=== PATIENT | female | born 1935 | race Caucasian/White ===

== ENCOUNTER 2017-04-13 14:01 | Inpatient (IN) | payer MEDICARE ==
[2017-04-13 14:32] LABS: #Eosinphils 0.1 thou/uL (0.0-0.7); #Lymphocytes 0.8 thou/uL (1.20-3.40); #Monocytes 0.6 thou/uL (0.11-0.59); #Neutrophils 8.9 thou/uL (1.40-6.50); %Basophils 0.5 % (0.0-1.0); %Eosinophils 1.4 % (0.0-10.0); %Lymphocytes 7.2 % (21.0-51.0); %Monocytes 5.8 % (0.0-10.0); Hematocrit 46.9 % (36.0-47.0); Mean Platelet Volume 8.1 fL (7.4-10.4); Red Blood Cell (RBC) Count 4.59 mill/uL (4.20-5.40); White Blood Cell (WBC) Count 10.5 thou/uL (4.8-10.8)
[2017-04-13 14:55] LABS: ALT (SGPT) 15 U/L (8-55); AST (SGOT) 18 U/L (5-34); Alkaline Phosphatase 69 U/L (40-150); Anion Gap 14 mmol/L (10-20); BUN (Urea Nitrogen) 17 mg/dL (9.8-20.1); Bilirubin, Total 0.9 mg/dL (0.2-1.2); Calc. Creatinine Clearance 0 mL/min (70-130); Calcium 9.8 mg/dL (7.8-10.44); Carbon Dioxide 25 mmol/L (23-31); Chloride 107 mmol/L (98-107); Estimated GFR-MDRD 61; Globulin 2.8 g/dL (2.4-3.5); Protein, Total 6.7 g/dL (6.0-8.3)
--- NOTE | 2017-04-13 14:55 | RAD ---
CHEST ONE VIEW: HISTORY: Emphysema. Shortness of breath. COMPARISON: 04/20/2016 FINDINGS: Portable upright chest shows sternotomy wires. There is atherosclerosis of the aorta. The heart is enlarged. The pulmonary vessels and hilum are normal. The costophrenic angles are clear. Hyperin flation with chronic changes. No mass or consolidation. No pneumothorax or osseous abnormalities. IMPRESSION: 1. Atherosclerosis. 2. Cardiomegaly. 3. Hyperinflation with chronic changes. POS: [facility]
[2017-04-13 15:00] LABS: Troponin I Less than 0.010 ng/mL (< 0.028)
[2017-04-13] MEDS ORDERED: Acetaminophen 325 MG TAB PO PRN (17:12)
[2017-04-13] MEDS ORDERED: Ondansetron ODT 4 MG TAB SL PRN (17:12)
[2017-04-13] MEDS ORDERED: Ondansetron HCl/PF 4 MG/2 ML Vial IVP PRN ×2 (17:12→17:20)
[2017-04-13] MEDS ORDERED: Ondansetron ODT 4 MG TAB PO PRN (17:20)
[2017-04-13] MEDS ORDERED: cloNIDine HCl 0.1 MG TAB PO PRN (17:20)
[2017-04-13] MEDS ORDERED: Acetaminophen 500 MG TAB PO PRN (17:20)
[2017-04-13 17:22] VITALS: BMI 19.5
[2017-04-13 18:46] LABS: Troponin I 0.016 ng/mL (< 0.028)
[2017-04-13] MEDS ORDERED: Diltiazem HCl 125 MG, IV Admixture Fee 1 EACH in Sodium Chloride 0.9% 100 ML SLOW IVP SCH (19:00)
--- NOTE | 2017-04-13 19:05 | HP ---
DATE OF ADMISSION: 04/13/2017 PRIMARY CARE PHYSICIAN: Sunita Lind M.D. CHIEF COMPLAINT: Shortness of breath. HISTORY OF PRESENT ILLNESS: This is an 81-year-old female with known history of chronic o bstructive pulmonary disease/emphysema, who apparently got up in the morning complaining of increase d shortness of breath. The patient states she has had a.m. shortness of breath for which she takes home nebulized treatments. The patient states she took her regular home nebulized solution; however , persisted with symptoms and shortness of breath. The patient denies any specific chest pain, jaw or left arm discomfort. The patient does admit to a longstanding history of chronic atrial fibrilla tion and palpitations. The patient denies any specific travel history, fever, chills, recurrent pne umonia, chest trauma or purulent cough. The patient denies having the current influenza vaccination for this season, but states her Pneumovax is currently in the last 3 years. The patient denies any chronic medication changes by her primary care provider. The patient denies any specific prominent fever or lower extremity swelling or decreased appetite. The patient states she remains functional of most activities of daily living, taking care of her home as well as multiple animals. In the em ergency room, the patient underwent general evaluation including chest imaging showing no acute proc ess. Patient received DuoNebs in transport by EMS personnel as well as in the emergency room. The patient overall states her symptoms have resolved. PAST MEDICAL HISTORY: 1. Chronic obstructive pulmonary disease/emphysema. 2. Chronic hypoxic respiratory failure with nocturnal oxygen use. 3. Coronary artery disease. 4. Chronic atrial fibrillation with variable rate. 5. Hyperlipidemia. PAST SURGICAL HISTORY: 1. Status post right elbow fracture repair. 2. Status post coronary artery bypass grafting. CURRENT MEDICATIONS: 1. Albuterol sulfate 3 mL nebulized q.4-6h. p.r.n. 2. Lipitor 20 mg one tab p.o. daily. 3. Digoxin 125 mcg 1 tab p.o. daily. 4. Diltiazem extended release 120 mg p.o. daily. 5. Lasix 20 mg p.o. at bedtime. 6. Lasix 40 mg p.o. q.a.m. 7. Levothyroxine 100 mcg p.o. daily. 8. Moexipril 15 mg p.o. b.i.d. 9. Coumadin 4 mg 1 tab p.o. daily. ALLERGIES: METOPROLOL and SULFA. FAMILY HISTORY: Multiple family members with hypertension. SOCIAL HISTORY: Patient resides in [place], [place]. No current tobacco use, quitting in the . No alcohol or illicit drug use. REVIEW OF SYSTEMS: The following complete review of systems was negative, unless otherwise mentione d in the HPI or below: CONSTITUTIONAL: Weight loss or gain, ability to conduct usual activities. SKIN: Rash, itching. EYES: Double vision, pain. ENT/MOUTH: Nose bleeding, neck stiffness, pain, tenderness. CARDIOVASCULAR: Palpitations, dyspnea on exertion, orthopnea. RESPIRATORY: Shortness of breath, wheezing, cough, hemoptysis, fever or night sweats. GASTROINTESTINAL: Poor appetite, abdominal pain, heartburn, nausea, vomiting, constipation, or diar kevin. GENITOURINARY: Urgency, frequency, dysuria, nocturia. MUSCULOSKELETAL: Pain, swelling. NEUROLOGIC/PSYCHIATRIC: Anxiety, depression. ALLERGY/IMMUNOLOGIC: Skin rash, bleeding tendency. Otherwise negative except as stated per HPI. PHYSICAL EXAMINATION: VITAL SIGNS: On admission, blood pressure 159/99, pulse 95, respiratory rate 23, temperature 97.9 d egrees Fahrenheit, O2 saturation 97% on 2 liters per minute by nasal cannula. GENERAL APPEARANCE: This is an 81-year-old female, alert and oriented x3, pleasant, conve rsant, responsive, in no acute distress. HEENT: Pupils are equal, round, and reactive to light and accommodation. Extraocular muscles are i ntact. No scleral icterus, no conjunctival injection. Nares patent. OP is clear. Teeth in fair r epair. NECK: Supple, no cervical adenopathy, no thyromegaly, no carotid bruits, no JVD appreciated. Cervi magdalena spine with full active and passive range of motion. CHEST: Diminished breath sounds in the bases bilaterally. Occasional expiratory wheeze. CARDIOVASCULAR: S1, S2 with irregular rate and rhythm. ABDOMEN: Flat, soft, nontender, nondistended. Bowel sounds are positive in all 4 quadrants. There is no hepatosplenomegaly, no abdominal bruits, no rebound or guarding appreciated. EXTREMITIES: Warm and dry with fair turgor. No clubbing, cyanosis or asymmetric edema appreciated. Pulses are palpable distally at the dorsalis pedis, posterior tibial, and popliteal arteries bilat erally. Capillary refill less than 2 seconds. NEUROLOGIC: Cranial nerves II-XII are grossly intact. No focal or lateralizing signs appreciated. PERTINENT LABORATORY AND X-RAY FINDINGS: Complete metabolic profile within normal limits. Troponin I negative x1. CBC showed a white blood cell count of 10.5, hemoglobin 15, hematocrit 47, MCV 102, platelet count 179 with 85% neutrophils. Portable chest x-ray dated 04/13/2017, showed cardiomegal y with hyperinflation consistent with chronic obstructive pulmonary disease. No acute infiltrate id entified. EKG dated 04/13/2017, by my interpretation shows atrial fibrillation with rapid ventricul ar response, heart rates in the 120s. Attenuated R waves noted in the precordial leads. There are typical changes including ST-T wave changes in lead V4 through V6. ASSESSMENT AND PLAN: 1. Acute on chronic hypoxemic respiratory failure. The patient will be placed in observation statu s. We will continue general pulmonary supportive measures. We will provide oxygen to maintain O2 s aturations greater than or equal to 90%. Continue DuoNebs q.4 hours while awake. Overall, respirat ory status improved after initial management in the emergency room. 2. Chronic obstructive pulmonary disease/emphysema. No specific evidence of acute decompensation. We will continue symptomatic and supportive management as outlined in #1. We will resume home johnnie men including bronchodilator therapy. 3. Chronic atrial fibrillation with variable rate. We will continue symptomatic and supportive juan sures. Resume digoxin 125 mcg p.o. daily. Resume diltiazem 120 mg p.o. daily. 4. Hypertension. We will resume home antihypertensive regimen and monitor clinical response. 5. Hypothyroidism. Resume levothyroxine 100 mcg p.o. daily. 6. Prophylaxis. Sequential compression devices while in bed. Pepcid 20 mg p.o. b.i.d. 7. Code status is FULL. Surrogate medical decision maker is patient's son, Augustus Coleman.
[2017-04-13] MEDS: Famotidine 20 MG TAB PO SCH (20:37)
[2017-04-13] MEDS: guaiFENesin ER 600 MG TAB PO SCH (20:37)
[2017-04-13 21:29] LABS: Troponin I 0.017 ng/mL (< 0.028)
[2017-04-14] MEDS: Levothyroxine Sodium 100 MCG TAB PO SCH (05:05)
[2017-04-14 05:42] LABS: Hematocrit 43.7 % (36.0-47.0); Neutrophil 64 % (42-75); Red Blood Cell (RBC) Count 4.25 mill/uL (4.20-5.40); White Blood Cell (WBC) Count 7.7 thou/uL (4.8-10.8)
[2017-04-14 05:49] LABS: Anion Gap 10 mmol/L (10-20); BUN (Urea Nitrogen) 18 mg/dL (9.8-20.1); Calc. Creatinine Clearance 48 mL/min (70-130); Calcium 9.3 mg/dL (7.8-10.44); Carbon Dioxide 29 mmol/L (23-31); Chloride 105 mmol/L (98-107); Estimated GFR-MDRD 69
[2017-04-14] MEDS: Famotidine 20 MG TAB PO SCH ×2 (08:43→20:28)
[2017-04-14] MEDS: predniSONE 20 MG TAB PO SCH (08:43)
[2017-04-14] MEDS: Furosemide 40 MG TAB PO SCH (08:43)
[2017-04-14] MEDS: Potassium Chloride 20 MEQ TAB PO SCH (08:44)
[2017-04-14] MEDS: guaiFENesin ER 600 MG TAB PO SCH ×2 (08:44→20:28)
[2017-04-14] MEDS ORDERED: Aspirin 325 MG TAB PO SCH (09:00)
--- NOTE | 2017-04-14 17:52 | PDOC.PN ---
- Subjective Encounter Start Date: 04/14/17 Encounter Start Time: 17:40 Subjective: f/u for dyspnea and chronic a-fib with RVR. Overall feels better and -: A-fib rate controlled. Minimal cough and no fever. Cardizem gtt initially -: but now d/c'd. - Objective MAR Reviewed: Yes Vital Signs & Weight: Vital Signs (12 hours) Temp Pulse Resp BP BP Pulse Ox 04/14/17 16:29 96 04/14/17 16:00 98.3 F 79 16 160/79 H 94 L 04/14/17 13:46 70 16 96 04/14/17 12:00 97.4 F L 85 20 187/85 H 91 L 04/14/17 10:45 69 22 H 96 04/14/17 08:00 98 F 55 L 16 122/58 L 96 04/14/17 06:42 58 L 16 96 I&O: 04/13/17 04/14/17 04/15/17 06:59 06:59 06:59 Intake Total 515 Output Total 300 Balance 215 Result Diagrams: 04/14/17 04:56 04/14/17 04:56 EKG Reviewed by me: Yes (Tele - A-fib in 70's) Phys Exam - Physical Examination Constitutional: NAD HEENT: PERRLA, oral pharynx no lesions Neck: no JVD, supple diminished in bases Respiratory: no wheezing Cardiovascular: irregular Gastrointestinal: soft, non-tender, no distention, positive bowel sounds Musculoskeletal: no edema, pulses present Neurological: normal sensation, moves all 4 limbs Psychiatric: A&O x 3 Skin: normal turgor, cap refill <2 seconds Dx/Plan (1) Chronic atrial fibrillation with RVR Code(s): I48.2 - CHRONIC ATRIAL FIBRILLATION Status: Acute Comment: Rate improved and off Cardizem gtt, resume home Digoxin and Diltiazem XT (2) COPD (chronic obstructive pulmonary disease) Status: Chronic Qualifiers: COPD type: chronic bronchitis Chronic bronchitis type: simple Qualified Code(s): J41.0 - Simple chronic bronchitis Comment: mild flare but controlled with Prednisone 40mg daily, continue supportive measures (3) Chronic respiratory failure Code(s): J96.10 - CHRONIC RESPIRATORY FAILURE, UNSP W HYPOXIA OR HYPERCAPNIA Status: Chronic Qualifiers: Respiratory failure complication: hypoxia and hypercapnia Qualified Code(s) : J96.11 - Chronic respiratory failure with hypoxia; J96.12 - Chronic respiratory failure with hypercapnia Comment: Home O2 intermittently, continue on d/c (4) HTN (hypertension) Code(s): I10 - ESSENTIAL (PRIMARY) HYPERTENSION Status: Chronic Qualifiers: Hypertension type: essential hypertension Qualified Code(s): I10 - Essential (primary) hypertension Comment: Stable, resume home BP regimen - Plan respiratory therapy, out of bed/ambulate, DVT proph w/SCDs Stable overall -: Resume Digoxin and Cardizem -: Continue ASA 81mg daily -: Continue Prednisone 40mg daily, Duonebs q4h prn -: Likely home in am * .
[2017-04-15] MEDS: Levothyroxine Sodium 100 MCG TAB PO SCH (06:00)
[2017-04-15] MEDS: predniSONE 20 MG TAB PO SCH (07:59)
[2017-04-15] MEDS: Furosemide 40 MG TAB PO SCH (07:59)
[2017-04-15] MEDS: Potassium Chloride 20 MEQ TAB PO SCH (07:59)
[2017-04-15] MEDS: Famotidine 20 MG TAB PO SCH (08:00)
[2017-04-15] MEDS: guaiFENesin ER 600 MG TAB PO SCH (08:00)
[2017-04-15 11:57] VITALS: TEMP 97.6
[2017-04-15 12:20] VITALS: BP 158/97
--- NOTE | 2017-04-15 19:52 | DIS ---
DATE OF ADMISSION: 04/13/2017 DATE OF DISCHARGE: 04/15/2017 DISCHARGE DIAGNOSES: 1. Chronic atrial fibrillation with rapid ventricular response, rate controlled currently. 2. Chronic obstructive pulmonary disease, stable. 3. Acute on chronic hypoxemic respiratory failure with oxygen supplementation at 2 liters per minut e by nasal cannula. 4. Hypertension, stable. CONSULTATIONS: None. PERTINENT LABORATORY AND X-RAY FINDINGS: Complete metabolic profile within normal limits. Troponin I negative x3. CBC within normal limits. Portable chest x-ray dated 04/13/2017 showed hyperinflat ion of bilateral lung vazquez with chronic changes. A 2D transthoracic echocardiogram dated 04/14/20 17 showed ejection fraction of 45-50%. Moderate biatrial enlargement. Moderate mitral valve regurg itation. Moderate to severe tricuspid regurgitation. HOSPITAL COURSE: Patient was admitted to the telemetry unit after initially presenting with [facility] shortness of breath in the context of known chronic hypoxemic respiratory failure on chronic oxyg en supplementation in the context of chronic obstructive pulmonary disease. The patient did not pre sent with typical COPD exacerbation; however, did receive bronchodilator therapy, prednisone 40 mg d aily, and pulmonary supportive measures. The patient was also noted with chronic atrial fibrillatio n with rapid ventricular response, initially placed on low dose Cardizem infusion, transitioning to oral Cardizem and digoxin, remaining rate controlled through the remainder of the hospital course. The patient overall clinically stabilized in the first 24 hours and currently at baseline pulmonary functional status. The patient is stable and ready for discharge on 04/15/2017. DISCHARGE MEDICATIONS: 1. Prednisone 20 mg 2 tabs p.o. daily x2 days, followed by 1 tab p.o. daily x3 days, followed by powell lf a tab p.o. daily x3 days. 2. Aspirin 81 mg 1 tab p.o. daily. 3. Lipitor 20 mg p.o. at bedtime. 4. Digoxin 125 mcg p.o. daily. 5. Diltiazem XT 180 mg p.o. daily. 6. Lasix 40 mg p.o. q.a.m. and 20 mg p.o. at bedtime. 7. DuoNebs 3 mL nebulized q.i.d. p.r.n. 8. Levothyroxine 100 mcg p.o. daily. 9. Moexipril 15 mg p.o. b.i.d. 10. K-Dur 20 mEq 1 tab p.o. daily. 11. Coumadin 4 mg 1 tab p.o. daily. FOLLOWUP: The patient will follow up with her primary care provider, Dr. Sunita Lind within 7 day s. CONDITION ON DISCHARGE: Stable. ACTIVITY: Ad akosua. DIET: Heart healthy and Coumadin prudent. SPECIAL INSTRUCTIONS: Recommend repeat PT/INR on 04/17/2017. CODE STATUS: FULL. DISPOSITION: Home, 04/15/2017.
== END 2017-04-15 13:18 | disposition home or self-care (01) | DRG 189 ==
LOC: ERS 14:01 → 2SW 15:34 → OBSVTOIN 18:47 → 2NO 20:23
PROVIDERS: ADMIT Family Medicine; ATTEND Family Medicine
DX: J96.21 Acute and chronic respiratory failure with hypoxia (principal); Z99.81 Dependence on supplemental oxygen; I48.2 Chronic atrial fibrillation; J44.9 Chronic obstructive pulmonary disease, unspecified; I10 Essential (primary) hypertension; I25.10 Atherosclerotic heart disease of native coronary artery without angina pectoris; E78.5 Hyperlipidemia, unspecified; Z87.891 Personal history of nicotine dependence; E03.9 Hypothyroidism, unspecified
CPT/HCPCS: 36415; 71010; 80048; 80053; 82553; 84484; 85007; 85025; 85027; 93005; 93306; 94640; 94760; J7050; J7506; J7620

== ENCOUNTER 2017-04-30 05:01 | Inpatient (IN) | payer MEDICARE ==
[2017-04-30 05:42] LABS: #Lymphocytes 0.6 thou/uL (1.20-3.40); #Monocytes 0.3 thou/uL (0.11-0.59); #Neutrophils 7.8 thou/uL (1.40-6.50); %Basophils 0.3 % (0.0-1.0); %Eosinophils 0.4 % (0.0-10.0); %Lymphocytes 7.1 % (21.0-51.0); %Monocytes 3.9 % (0.0-10.0); Hematocrit 48.6 % (36.0-47.0); Mean Platelet Volume 8.2 fL (7.4-10.4); Red Blood Cell (RBC) Count 4.79 mill/uL (4.20-5.40); White Blood Cell (WBC) Count 8.8 thou/uL (4.8-10.8)
[2017-04-30 05:49] LABS: Prothrombin Time 36.6 SEC (12.0-14.7)
[2017-04-30 05:57] LABS: Digoxin 0.76 ng/mL (0.8-2.0)
[2017-04-30 05:58] LABS: ALT (SGPT) 48 U/L (8-55); AST (SGOT) 55 U/L (5-34); Alkaline Phosphatase 68 U/L (40-150); Anion Gap 16 mmol/L (10-20); BUN (Urea Nitrogen) 27 mg/dL (9.8-20.1); Bilirubin, Total 0.7 mg/dL (0.2-1.2); CK (CPK) 58 U/L (29-168); Calc. Creatinine Clearance 0 mL/min (70-130); Calcium 9.7 mg/dL (7.8-10.44); Carbon Dioxide 25 mmol/L (23-31); Chloride 104 mmol/L (98-107); Estimated GFR-MDRD 52; Globulin 2.6 g/dL (2.4-3.5); Magnesium 2.3 mg/dL (1.6-2.6); Protein, Total 6.2 g/dL (6.0-8.3)
[2017-04-30 06:01] LABS: Troponin I 0.078 ng/mL (< 0.028)
[2017-04-30] MEDS ORDERED: Ondansetron ODT 4 MG TAB SL PRN (07:15)
[2017-04-30] MEDS ORDERED: Ondansetron HCl/PF 4 MG/2 ML Vial IVP PRN ×2 (07:15→07:53)
--- NOTE | 2017-04-30 07:29 | HP ---
PRIMARY CARE PHYSICIAN: Dr. Sunita Lind. REASON FOR ADMISSION: Acute on chronic hypoxic respiratory failure, acute on chronic congestive hea rt failure, atrial fibrillation with rapid ventricular response. HISTORY OF PRESENT ILLNESS: An 81-year-old female who has history of atrial fibrillation, on chroni c anticoagulation therapy, as well as chronic respiratory failure, on home oxygen, who presented to the emergency room with acute onset of shortness of breath. Patient reports that she woke up from s lee around 3 with shortness of breath. She was feeling palpitations and dizziness. She was not ab le to breathe at all and that is why she called 911 and Paramedics brought her to the emergency room . When Paramedics saw her, at that time she was saturating 86%. The patient was given 2 times nebu lizer therapy on the route and patient was also having fibrillation with RVR. Patient denies any sy ncope. She denies any chest pain. She denies any orthopnea, PND, or leg swelling. Patient does powell ve a history of COPD. She denies any fever or chills. She denies any cough, hemoptysis, or calf te nderness. She denies any hematochezia, melena, nausea, vomiting, or diarrhea. She denies any diaph oresis. REVIEW OF SYSTEMS: The following complete review of systems was negative, unless otherwise mentione d in the HPI or below: Constitutional: Weight loss or gain, ability to conduct usual activities. Skin: Rash, itching. Eyes: Double vision, pain. ENT/Mouth: Nose bleeding, neck stiffness, pain, tenderness. Cardiovascular: Palpitations, dyspnea on exertion, orthopnea. Respiratory: Shortness of breath, wheezing, cough, hemoptysis, fever or night sweats. Gastrointestinal: Poor appetite, abdominal pain, heartburn, nausea, vomiting, constipation, or diar kevin. Genitourinary: Urgency, frequency, dysuria, nocturia. Musculoskeletal: Pain, swelling. Neurologic/Psychiatric: Anxiety, depression. Allergy/Immunologic: Skin rash, bleeding tendency. Please see my HPI for pertinent positives and negatives. All other review of system are reviewed an d negative except as mentioned in the HPI. PAST MEDICAL HISTORY: Chronic respiratory failure with hypoxia, requiring oxygen therapy; COPD; cor onary artery disease; chronic atrial fibrillation; hypertension; dyslipidemia; pulmonary hypertensio n; severe tricuspid regurgitation; systolic and diastolic dysfunction. PAST SURGICAL HISTORY: Right elbow fracture repair, CABG. PAST PSYCHIATRIC HISTORY: Reviewed and negative. CURRENT HOME MEDICATIONS: Aspirin 81 mg p.o. daily, Lipitor 20 mg p.o. at bedtime, digoxin 125 mcg p.o. daily, Cardizem-CD 180 mg p.o. daily, Lasix 20 mg at bedtime and 40 mg in morning, DuoNeb every 6 hourly p.r.n., Synthroid 100 mcg p.o. daily, moexipril 15 mg p.o. b.i.d., potassium chloride 20 m Eq p.o. daily, warfarin 4 mg p.o. daily. ALLERGIES: The patient is not tolerating METOPROLOL and SULFA DRUGS. FAMILY HISTORY: Hypertension runs among several family members. No strong family history of premat ure coronary artery disease, stroke, or cancer. SOCIAL HISTORY: Patient lives in [place], [place]. No history of tobacco, alcohol, or illicit drug abuse. She quit smoking in 1979 after smoking 32 years. The patient lives with her son. EMERGENCY ROOM COURSE: Patient has given Cardizem drip after Cardizem bolus. PHYSICAL EXAMINATION: VITAL SIGNS: On arrival, blood pressure 120/99, pulse 134, irregular, respiratory rate 22, saturati on 97% on 2 liter oxygen, weight 55.3 kilograms. GENERAL: Patient is currently alert, awake, in no obvious acute distress. HEENT: Head: Normocephalic, atraumatic. Eyes: Pupils are round, reactive to light. Extraocular muscle intact. ENT: Oropharynx within normal limits. Moist mucous membranes. No oral lesions. N o pharyngeal erythema, no exudate. NECK: Supple. Range of motion is normal. No meningeal signs of irritation. LUNGS: Few air entry reduced both sides. Few basilar rales noted. CARDIAC: S1 and S2, irregularly irregular. Systolic murmur present in parasternal area. No gallop , no rub. ABDOMEN: Soft, bowel sounds present, nontender, nondistended. No organomegaly, no mass, no suprapu bic tenderness. BACK EXAMINATION: Unremarkable, no CVA tenderness. EXTREMITIES: Upper extremities, passive movement of all joints are normal. Lower extremities, no e cameron. Good peripheral pulsation. SKIN: No skin rash. HEMATOLOGICAL SYSTEM: No lymphadenopathy. PSYCHIATRIC: Normal affect. SIGNIFICANT LABORATORY DATA AND IMAGIN. EKG showing atrial fibrillation with rapid ventricular response, nonspecific ST-T changes. Ches t x-ray showing cardiomegaly, emphysematous changes. 2. CBC: WBC 8.8, hemoglobin 15.8, MCV 101.0, and platelets 191. INR 3.5. BMP: Sodium 140, potas sium 4.5, chloride 104, carbon dioxide 25, BUN 27, creatinine 1.02, glucose 236, calcium 9.7. 3. LFT: AST 55, ALT 48, alkaline phosphatase 68, albumin 3.6. CK 58, CK-MB 5.0, troponin I of 0.0 78. Digoxin level 0.76. ASSESSMENT AND PLAN/IMPRESSION: 1. Atrial fibrillation with rapid ventricular response. This patient has atrial fibrillation and p aroxysmal rapid ventricular response. Currently, the patient requires Cardizem drip. We will caterina nue Cardizem drip and monitor on telemetry floor. Based on her rate of control, we will change to o ral medication. I will also continue digoxin 0.125 mg p.o. daily. If her heart rate is not get und er control with Cardizem drip, then we will consider Cardiology evaluation. 2. Acute on chronic respiratory failure with hypoxia. This patient chronically requires oxygen the rapy at home. When she presented to the ER, she was hypoxic. At this point, we will continue with baseline oxygen therapy and titrate to her baseline oxygen requirement. 3. Acute on chronic systolic and diastolic congestive heart failure exacerbation, likely due to und erlying atrial fibrillation with rapid ventricular response. Patient had echocardiography recently, which showed ejection fraction 40% to 45% and she has pulmonary hypertension as well as severe tric uspid regurgitation. Patient will require Lasix 20 mg IV b.i.d. and we will monitor input and outpu t chart, daily labs, and weight. We will replace electrolytes as needed basis. 4. Chronic obstructive pulmonary disease exacerbation. We will continue with the DuoNeb every 6 ho urly, Solu-Medrol 20 mg IV every 8 hourly. 5. Elevated troponin, likely due to demand ischemia. We will do serial cardiac enzymes to rule out acute coronary syndrome. 6. Hyperglycemia, may be related with steroid, but we will check a hemoglobin A1c to rule out any d iabetes and we will also continue with insulin as per sliding scale per protocol. 7. Dyslipidemia. We will continue Lipitor 20 mg p.o. at bedtime. 8. Pulmonary hypertension with severe tricuspid regurgitation likely due to chronic hypoxia and chr onic obstructive pulmonary disease. 9. Hypothyroidism. We will continue Synthroid 100 mcg p.o. daily. 10. Hypertension. We will continue moexipril 15 mg p.o. b.i.d. 11. Chronic anticoagulation therapy with warfarin. Currently, INR is 3.5, so we will hold on warfa rin therapy today. Pharmacy will manage warfarin therapy while in the hospital. 12. Deep venous thrombosis prophylaxis. The patient is already on warfarin therapy. 13. Gastrointestinal prophylaxis. Protonix 40 mg p.o. daily. CODE STATUS: Patient is FULL CODE. Patient's son is a surrogate decision maker. Disposition and plan based on clinical course, we are expecting patient's stay in hospital more than 2 midnights. Plan of care was discussed with the patient in detail.
[2017-04-30] MEDS ORDERED: Senokot 8.6 MG TAB PO PRN (07:53)
[2017-04-30] MEDS ORDERED: Loratadine 10 MG TAB PO PRN (07:53)
[2017-04-30] MEDS ORDERED: HYDROcodone/Acetaminophen 5/325 mg Tablet PO PRN (07:53)
[2017-04-30] MEDS ORDERED: Mag-Al 1200 mg/1200 mg/30 ML UDCUP PO PRN (07:53)
[2017-04-30] MEDS ORDERED: HumaLOG 300 UNITS/3 ML VIAL SC PRN ×2 (07:53)
[2017-04-30] MEDS ORDERED: Artificial Tears 18 DROP/0.9 ML EA EYE PRN (07:53)
[2017-04-30] MEDS ORDERED: Sodium Chloride 0.65% Nasal 44 ML BOT EA NARE PRN (07:53)
[2017-04-30] MEDS ORDERED: Dextrose 50% Abboject 50 ML SYRINGE SLOW IVP PRN (07:53)
[2017-04-30] MEDS ORDERED: Benzonatate 100 MG CAP PO PRN (07:53)
[2017-04-30] MEDS ORDERED: Ondansetron ODT 4 MG TAB PO PRN (07:53)
[2017-04-30] MEDS ORDERED: Furosemide 20 MG/2 ML VIAL SLOW IVP SCH ×2 (07:53→08:15)
[2017-04-30] MEDS ORDERED: Diabetic Tussin 200 MG/10 ML UDCUP PO PRN (07:53)
[2017-04-30] MEDS ORDERED: Levothyroxine Sodium 100 MCG TAB PO SCH ×2 (07:53→08:15)
[2017-04-30] MEDS ORDERED: Chloraseptic Spray 180 ml Bottle PO PRN (07:53)
[2017-04-30] MEDS ORDERED: Loperamide HCl 2 MG CAP PO PRN (07:53)
[2017-04-30] MEDS ORDERED: Acetaminophen 325 MG TAB PO PRN (07:53)
[2017-04-30] MEDS ORDERED: Dextrose 5% in Water 1,000 ML IV PRN (07:53)
[2017-04-30] MEDS ORDERED: Eucerin (Mineral Oil/Petrolatum,White) 30 gm Jar TOP PRN (07:53)
[2017-04-30] MEDS ORDERED: Milk Of Magnesia 30 ML UDCUP PO PRN (07:53)
[2017-04-30 08:30] VITALS: BMI 20.9
--- NOTE | 2017-04-30 08:31 | RAD ---
AP VIEW OF THE CHEST: INDICATION: Dyspnea. IMPRESSION: Stable prominent cardiomegaly and chronic lung changes. No acute abnormality noted. COMMENTS: The exam is compared to prior dated 04/13/17. No airspace consolidation, pleural effusion, or pneumo thorax is evident. Chronic osseous changes are stable. Midline sternotomy changes are similar. POS: [facility]
[2017-04-30] MEDS: Digoxin 0.125 MG TAB PO SCH (08:58)
[2017-04-30] MEDS: Cyanocobalamin (Vitamin B-12) 1,000 MCG TAB PO SCH (08:58)
[2017-04-30] MEDS: Folic Acid 1 MG TAB PO SCH (08:58)
[2017-04-30 09:02] LABS: Troponin I 0.171 ng/mL (< 0.028)
--- NOTE | 2017-04-30 10:21 | PDOC.PN ---
- Subjective Encounter Start Date: 04/30/17 Encounter Start Time: 10:20 Patient seen at bedside. States her breathing overall has improved but intermittently becomes SOB. No other complaints. - Objective Resuscitation Status: Resuscitation Status FULL:Full Resuscitation MAR Reviewed: Yes Vital Signs & Weight: Vital Signs (12 hours) Temp Pulse Resp BP Pulse Ox 04/30/17 08:58 95 04/30/17 08:29 97.8 F 95 22 H 128/84 96 Weight Weight 133 lb 12.8 oz Result Diagrams: 04/30/17 05:27 04/30/17 05:27 Phys Exam - Physical Examination Constitutional: NAD HEENT: moist MMs Neck: no JVD mild rales b/l Cardiovascular: irregular Gastrointestinal: soft Musculoskeletal: pulses present Neurological: moves all 4 limbs Psychiatric: normal affect, A&O x 3 Dx/Plan (1) Afib Code(s): I48.91 - UNSPECIFIED ATRIAL FIBRILLATION Status: Chronic Qualifiers: Atrial fibrillation type: chronic Qualified Code(s): I48.2 - Chronic atrial fibrillation (2) Acute systolic (congestive) heart failure Code(s): I50.21 - ACUTE SYSTOLIC (CONGESTIVE) HEART FAILURE Status: Suspected (3) Chronic respiratory failure Code(s): J96.10 - CHRONIC RESPIRATORY FAILURE, UNSP W HYPOXIA OR HYPERCAPNIA Status: Chronic Qualifiers: Respiratory failure complication: hypoxia and hypercapnia Qualified Code(s) : J96.11 - Chronic respiratory failure with hypoxia; J96.12 - Chronic respiratory failure with hypercapnia Comment: Home O2 intermittently, continue on d/c (4) HLD (hyperlipidemia) Code(s): E78.5 - HYPERLIPIDEMIA, UNSPECIFIED Status: Chronic (5) HTN (hypertension) Code(s): I10 - ESSENTIAL (PRIMARY) HYPERTENSION Status: Chronic Qualifiers: Hypertension type: essential hypertension Qualified Code(s): I10 - Essential (primary) hypertension - Plan cont current plan of care, PT/OT, respiratory therapy * Continue with IV diuresis. * Wean Cardizem drip. Start on Cartia 180mg (Home dose) * IV steroids/Duonebs * Supplemental 02 * Daily Labs * Check INR in AM
[2017-04-30 12:47] LABS: Troponin I 0.219 ng/mL (< 0.028)
[2017-04-30] MEDS: Furosemide 20 MG/2 ML VIAL SLOW IVP SCH (14:46)
[2017-04-30 16:40] LABS: Bilirubin Negative (Negative); Blood, Urine Negative (Negative); Glucose, Urine (Dipstick) 100 mg/dL (Negative); Ketone, Urine Negative (Negative); Nitrite Negative (Negative); Protein, Urine (Dipstick) Negative (Neg-Trace); Urobilinogen 0.2 mg/dL (0.2-1.0)
[2017-04-30 16:42] LABS: Bacteria/HPF None Seen HPF (None Seen); Hyaline Casts/LPF 0-3 HYALINE CAST LPF (0-3 Hyaline); Squamous Epithelial 0-3 HPF (0-3); WBC/HPF 0-3 HPF (0-3)
[2017-04-30 17:11] LABS: RBC/HPF 0-3 HPF (0-3)
[2017-04-30] MEDS ORDERED: FLU VACC TS2017-18 (>65YR) 0.5 ML SYRINGE IM ONE (21:00)
[2017-04-30] MEDS ORDERED: Atorvastatin Calcium 10 MG TAB PO SCH (21:00)
[2017-04-30] MEDS: Atorvastatin Calcium 20 MG TAB PO SCH (21:58)
[2017-05-01] MEDS: Furosemide 20 MG/2 ML VIAL SLOW IVP SCH ×2 (05:31→15:00)
[2017-05-01] MEDS: Levothyroxine Sodium 100 MCG TAB PO SCH (05:31)
[2017-05-01 05:59] LABS: Prothrombin Time 38.1 SEC (12.0-14.7)
[2017-05-01 06:11] LABS: Hemoglobin A1c 5.5 % (4.0-6.0)
[2017-05-01 06:19] LABS: Band 6 % (5-11); Hematocrit 44.5 % (36.0-47.0); Mean Platelet Volume 8.5 fL (7.4-10.4); Neutrophil 90 % (42-75); Red Blood Cell (RBC) Count 4.42 mill/uL (4.20-5.40); White Blood Cell (WBC) Count 20.3 thou/uL (4.8-10.8)
[2017-05-01 06:26] LABS: ALT (SGPT) 34 U/L (8-55); AST (SGOT) 21 U/L (5-34); Alkaline Phosphatase 60 U/L (40-150); Anion Gap 11 mmol/L (10-20); BUN (Urea Nitrogen) 30 mg/dL (9.8-20.1); Bilirubin, Total 0.4 mg/dL (0.2-1.2); Calc. Creatinine Clearance 52 mL/min (70-130); Calcium 9.9 mg/dL (7.8-10.44); Carbon Dioxide 27 mmol/L (23-31); Chloride 104 mmol/L (98-107); Estimated GFR-MDRD 71; Globulin 2.4 g/dL (2.4-3.5); Protein, Total 5.7 g/dL (6.0-8.3)
[2017-05-01] MEDS ORDERED: MOEXIPRIL HCL 15 MG PO SCH (09:00)
[2017-05-01] MEDS: Folic Acid 1 MG TAB PO SCH (09:50)
[2017-05-01] MEDS: Potassium Chloride 20 MEQ TAB PO SCH (09:50)
[2017-05-01] MEDS: Cyanocobalamin (Vitamin B-12) 1,000 MCG TAB PO SCH (09:50)
[2017-05-01] MEDS: Digoxin 0.125 MG TAB PO SCH (09:50)
--- NOTE | 2017-05-01 10:01 | PDOC.PN ---
- Subjective Encounter Start Date: 05/01/17 Encounter Start Time: 08:20 -: old records requested/rev Patient seen and examined. No new complaints. No overnight events - Objective Resuscitation Status: Resuscitation Status FULL:Full Resuscitation MAR Reviewed: Yes Vital Signs & Weight: Vital Signs (12 hours) Temp Pulse Resp BP Pulse Ox 05/01/17 09:50 76 05/01/17 07:24 97.7 F 76 18 96 05/01/17 07:22 97.7 F 76 18 116/65 96 05/01/17 06:46 84 18 96 05/01/17 04:00 98.5 F 86 18 125/70 95 05/01/17 00:19 92 20 94 L Weight Weight 133 lb 12.8 oz I&O: 04/30/17 05/01/17 05/02/17 06:59 06:59 06:59 Intake Total 640 Output Total 450 Balance 190 Result Diagrams: 05/01/17 04:30 05/01/17 04:30 Additional Labs: Accuchecks 05/01/17 04/30/17 04/30/17 06:30 22:50 16:35 POC Glucose 143 H 206 H 285 H 04/30/17 11:51 POC Glucose 256 H Radiology Reviewed by me: Yes EKG Reviewed by me: Yes Phys Exam - Physical Examination Constitutional: NAD HEENT: PERRLA, moist MMs, sclera anicteric Neck: no JVD, supple Respiratory: no wheezing, no rales, no rhonchi Cardiovascular: irregular SM+ Gastrointestinal: soft, non-tender, no distention, positive bowel sounds Musculoskeletal: no edema, pulses present Neurological: non-focal, normal sensation, moves all 4 limbs Psychiatric: normal affect, A&O x 3 Skin: no rash, normal turgor Dx/Plan (1) Acute on chronic combined systolic and diastolic congestive heart failure Code(s): I50.43 - ACUTE ON CHRONIC COMBINED SYSTOLIC AND DIASTOLIC HRT FAIL Status: Acute (2) Acute on chronic respiratory failure with hypoxia Code(s): J96.21 - ACUTE AND CHRONIC RESPIRATORY FAILURE WITH HYPOXIA Status: Acute (3) Atrial fibrillation with RVR Code(s): I48.91 - UNSPECIFIED ATRIAL FIBRILLATION Status: Acute (4) CAD (coronary artery disease) Code(s): I25.10 - ATHSCL HEART DISEASE OF [place] CORONARY ARTERY W/O ANG PCTRS Status: Chronic Qualifiers: Coronary Disease-Associated Artery/Lesion type: [place] artery [place] vs. transplanted heart: [place] heart Associated angina: without angina Qualified Code(s): I25.10 - Atherosclerotic heart disease of [place] coronary artery without angina pectoris (5) COPD (chronic obstructive pulmonary disease) Status: Chronic Qualifiers: COPD type: chronic bronchitis Chronic bronchitis type: simple Qualified Code(s): J41.0 - Simple chronic bronchitis Comment: mild flare but controlled with Prednisone 40mg daily, continue supportive measures (6) Chronic anticoagulation Code(s): Z79.01 - [facility] (CURRENT) USE OF ANTICOAGULANTS Status: Chronic (7) HLD (hyperlipidemia) Code(s): E78.5 - HYPERLIPIDEMIA, UNSPECIFIED Status: Chronic (8) HTN (hypertension) Code(s): I10 - ESSENTIAL (PRIMARY) HYPERTENSION Status: Chronic Qualifiers: Hypertension type: essential hypertension Qualified Code(s): I10 - Essential (primary) hypertension (9) Hypothyroidism Code(s): E03.9 - HYPOTHYROIDISM, UNSPECIFIED Status: Chronic (10) Pulmonary hypertension Code(s): I27.20 - PULMONARY HYPERTENSION, UNSPECIFIED Status: Chronic - Plan cont current plan of care, PT/OT * pt is improving and now almost euvolemic, will change to po lasix tomorrow * now afib with RVR is controlled, on po cardizem CD * will start PT * medication reviewed as below * symptomatic treatment. * DC hyperglycemia protocol, pt does not have diabetes, because of steroid she had high blood sugar * wbc is high due to steroid * will repeat labs tomorrow Review of Systems - Review of Systems ENT: negative: Ear Pain, Ear Discharge, Nose Pain, Nose Discharge, Nose Congestion, Mouth Pain, Mouth Swelling, Throat Pain, Throat Swelling, Other Respiratory: negative: Cough, Dry, Shortness of Breath, Hemoptysis, SOB with Excertion, Pleuritic Pain, Sputum, Wheezing Cardiovascular: negative: Chest Pain, Palpitations, Orthopnea, Paroxysmal Noc. Dyspnea, Edema, Light Headedness, Other Gastrointestinal: negative: Nausea, Vomiting, Abdominal Pain, Diarrhea, Constipation, Melena, Hematochezia, Other Genitourinary: negative: Dysuria, Frequency, Incontinence, Hematuria, Retention , Other Musculoskeletal: negative: Neck Pain, Shoulder Pain, Arm Pain, Back Pain, Hand Pain, Leg Pain, Foot Pain, Other - Medications/Allergies Allergies/Adverse Reactions: Allergies Allergy/AdvReac Type Severity Reaction Status Date / Time metoprolol tartrate Allergy Verified 04/19/16 20:07 [From Lopressor] Sulfa (Sulfonamide Allergy Verified 04/19/16 20:07 Antibiotics) Medications: Current Medications Acetaminophen (Tylenol) 650 mg PO Q4H PRN PRN Reason: Headache/Fever or Pain Hydrocodone Bitart/Acetaminophen ([place] 5/325) 1 tab PO Q4H PRN PRN Reason: Moderate Pain (4-6) Al Hydroxide/Mg Hydroxide (Maalox) 30 ml PO Q6H PRN PRN Reason: Heartburn or Indigestion Albuterol/Ipratropium (Duoneb) 3 ml NEB O1AM-HR [facility] Last Admin: 05/01/17 06:46 Dose: 3 ml Artificial Tears (Tears Naturale) 0 drop EA EYE PRN PRN PRN Reason: Dry Eyes Aspirin (Aspirin Chewable) 81 mg PO DAILY [facility] Last Admin: 05/01/17 09:49 Dose: 81 mg Atorvastatin Calcium (Lipitor) 20 mg PO HS [facility] Last Admin: 04/30/17 21:58 Dose: 20 mg Benzonatate (Tessalon) 100 mg PO Q4H PRN PRN Reason: Cough Cyanocobalamin (Vitamin B-12) 1,000 mcg PO DAILY [facility] Last Admin: 05/01/17 09:50 Dose: 1,000 mcg Dextrose/Water (Dextrose 50%) 25 gm SLOW IVP PRN PRN PRN Reason: Hypoglycemia Digoxin (Lanoxin) 0.125 mg PO DAILY [facility] Last Admin: 05/01/17 09:50 Dose: 0.125 mg Diltiazem HCl (Cardizem Cd) 180 mg PO DAILY [facility] Last Admin: 05/01/17 09:50 Dose: 180 mg Folic Acid (Folvite) 1 mg PO DAILY [facility] Last Admin: 05/01/17 09:50 Dose: 1 mg Furosemide (Lasix) 20 mg SLOW IVP 0600,1400 [facility] Last Admin: 05/01/17 05:31 Dose: 20 mg Guaifenesin (Robitussin Sf) 200 mg PO Q4H PRN PRN Reason: Cough Hydralazine HCl (Apresoline) 10 mg SLOW IVP Q4H PRN PRN Reason: Systolic BP > 180 Dextrose/Water (D5w) 1,000 mls @ 0 mls/hr IV .Q0M PRN; As Directed PRN Reason: Hypoglycemia Levothyroxine Sodium (Synthroid) 100 mcg PO 0600 [facility] Last Admin: 05/01/17 05:31 Dose: 100 mcg Loperamide HCl (Imodium) 2 mg PO PRN PRN PRN Reason: Diarrhea/Loose Stools Loratadine (Claritin) 10 mg PO DAILYPRN PRN PRN Reason: Sinus Symptoms Magnesium Hydroxide (Milk Of Magnesium) 30 ml PO DAILYPRN PRN PRN Reason: Constipation Mineral Oil/White Petrolatum (Eucerin Cream) 0 gm TOP BIDPRN PRN PRN Reason: Dry Skin Miscellaneous Medication (Pharmacy To Dose) 0 each PO ASDIR [facility] Ondansetron HCl (Zofran Odt) 4 mg PO Q6H PRN PRN Reason: Nausea/Vomiting Ondansetron HCl (Zofran) 4 mg IVP Q6H PRN PRN Reason: Nausea/Vomiting Pantoprazole Sodium (Protonix) 40 mg PO DAILY [facility] Last Admin: 05/01/17 09:49 Dose: 40 mg Phenol (Chloraseptic [place] 180 Ml Bot) 0 ml PO PRN PRN PRN Reason: Sore Throat Potassium Chloride (K-Dur) 20 meq PO DAILY [facility] Last Admin: 05/01/17 09:50 Dose: 20 meq Senna (Senokot) 2 tab PO HSPRN PRN PRN Reason: Constipation Sodium Chloride (Flush - Normal Saline) 10 ml IVF Q12HR [facility] Last Admin: 05/01/17 09:50 Dose: 10 ml Sodium Chloride (Flush - Normal Saline) 10 ml IVF PRN PRN PRN Reason: Saline Flush Sodium Chloride ([place] Nasal [place] 0.65%) 0 ml EA NARE QIDPRN PRN PRN Reason: Nasal Congestion
[2017-05-01] MEDS ORDERED: Warfarin Sodium 3 MG TAB PO SCH (17:00)
[2017-05-01] MEDS: Atorvastatin Calcium 20 MG TAB PO SCH (21:39)
[2017-05-02] MEDS: Levothyroxine Sodium 100 MCG TAB PO SCH (05:28)
[2017-05-02] MEDS: Furosemide 20 MG/2 ML VIAL SLOW IVP SCH (05:29)
[2017-05-02 05:50] LABS: #Lymphocytes 1.5 thou/uL (1.20-3.40); #Neutrophils 14.6 thou/uL (1.40-6.50); %Basophils 0.1 % (0.0-1.0); %Eosinophils 0.1 % (0.0-10.0); %Lymphocytes 8.6 % (21.0-51.0); %Monocytes 5.6 % (0.0-10.0); Hematocrit 44.4 % (36.0-47.0); Mean Platelet Volume 8.3 fL (7.4-10.4); Red Blood Cell (RBC) Count 4.36 mill/uL (4.20-5.40)
[2017-05-02 06:02] LABS: Anion Gap 9 mmol/L (10-20); BUN (Urea Nitrogen) 35 mg/dL (9.8-20.1); Calc. Creatinine Clearance 49 mL/min (70-130); Calcium 9.5 mg/dL (7.8-10.44); Carbon Dioxide 32 mmol/L (23-31); Chloride 103 mmol/L (98-107); Estimated GFR-MDRD 66
[2017-05-02] MEDS: Cyanocobalamin (Vitamin B-12) 1,000 MCG TAB PO SCH (08:37)
[2017-05-02] MEDS: Potassium Chloride 20 MEQ TAB PO SCH (08:38)
[2017-05-02] MEDS: Digoxin 0.125 MG TAB PO SCH (08:38)
[2017-05-02] MEDS: Folic Acid 1 MG TAB PO SCH (08:38)
[2017-05-02] MEDS ORDERED: Furosemide 20 MG TAB PO SCH ×2 (09:00→21:00)
[2017-05-02 10:06] LABS: Prothrombin Time 25.6 SEC (12.0-14.7)
[2017-05-02 10:17] VITALS: TEMP 97.8
--- NOTE | 2017-05-02 10:51 | DIS ---
DATE OF ADMISSION: 04/30/2017 DATE OF DISCHARGE: 05/02/2017 PRIMARY CARE PHYSICIAN: Sunita Lind M.D. DISCHARGE DISPOSITION: Home. PRIMARY DISCHARGE DIAGNOSES: 1. Acute on chronic combined systolic and diastolic congestive heart failure. 2. Acute on chronic respiratory failure with hypoxia. 3. Atrial fibrillation with rapid ventricular response. SECONDARY DISCHARGE DIAGNOSES: Chronic pulmonary hypertension, chronic respiratory failure requiring home oxygen, chronic systolic and diastolic heart failure, hypothyroidism, hypertension, dyslipidemia, chronic obstructive pulmonary disease, chronic anticoagulation with warfarin, coronary artery disease. PRIMARY PROCEDURE/OPERATION: None. RADIOLOGICAL INVESTIGATION: Chest x-ray on admission showed pulmonary vascular congestion. SIGNIFICANT LABORATORY DATA: WBC 17.0, which is related with steroid, hemoglobin 14.5, MCV 102, platelet 188. INR 3.7, sodium 139, potassium 4.8, BUN 35, creatinine 0.83, calcium 9.5. Hemoglobin A1c 5.5. LFT normal. Urinalysis normal. Digoxin level 0.76. DISCHARGE MEDICATIONS: Patient is advised to hold warfarin therapy today and tomorrow and then resume her home dose. Continue following medications: Aspirin 81 mg p.o. daily, Lipitor 20 mg p.o. at bedtime, digoxin 125 mcg p.o. daily, Lasix 20 mg p.o. at bedtime and 40 mg in the morning, DuoNeb q.6 hourly p.r.n., Synthroid 100 mcg p.o. daily, moexipril 15 mg p.o. b.i.d., potassium chloride 20 mEq p.o. daily. New medications; vitamin B12 1000 mcg p.o. daily, folic acid 1 mg p.o. daily, and Cardizem CD 180 mg p.o. daily. CONTRAINDICATIONS: None. CODE STATUS: FULL CODE. 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 ALLERGIES: METOPROLOL and SULFA DRUGS. DISCHARGE PLAN: Post hospital, the patient will follow up with primary care physician in 1 week. HOSPITAL COURSE: An 81-year-old female who has above-mentioned medical problem who was admitted by me on 04/30/2017. Patient was having acute onset of shortness of breath and she woke up with shortness of breath during nighttime and that is why she required to come to the ER. She was found with acute on chronic respiratory failure with hypoxia. She also had elevated BNP and she was also having acute on chronic systolic and diastolic congestive heart failure. This patient also had AFIB with RVR. Altogether, we treated her with a Cardizem drip, Lasix IV and we also gave her Solu-Medrol 20 mg q.8 hourly for possible COPD flare-up. She had some hyperglycemia that was related with steroid. We checked hemoglobin A1c and her hemoglobin A1c is 5.5 and that is why we ruled out diabetes. We advised to follow up with primary care physician to check on fasting blood sugar after discharge. She had leukocytosis that was related with steroid. She did not have any fever while in hospital. Regarding macrocytosis, we started on folic acid and vitamin B12 therapy. While in hospital, we did not have to give her warfarin because her INR was supratherapeutic and we advised on discharge to hold that medication for at least today and tomorrow and then resume her home dose. We discontinued Cardizem drip and her heart rate was under control and we started on Cardizem CD 180 mg p.o. daily. We watched her in hospital after that for at least 24-48 hours and she did not have any further RVR. She became euvolemic. At that time, we changed her Lasix to p.o. Lasix as per home dosage. At this point, patient is medically stable for discharge today. The patient is seen and examined at bedside today. PHYSICAL EXAMINATION: VITAL SIGNS: Currently, temperature 98.5, pulse 81, respiratory rate 18, saturation 100% on 2 liter, blood pressure 131/68, weight 129 pounds. GENERAL: The patient is currently alert, awake, in no acute distress. HEAD: Normocephalic, atraumatic. EYES: Pupils round, reactive to light. Extraocular muscle intact. ENT: Oropharynx within normal limits. Moist mucous membranes. No oral lesions. No pharyngeal erythema, no exudate. NECK: Supple. LUNGS: Clear to auscultation without any rhonchi or rales. CARDIAC: S1, S2 irregular without any significant murmur. ABDOMEN: Soft and benign. EXTREMITIES: No edema. NEUROLOGIC: Nonfocal examination. Overall, the patient is medically stable for discharge today. Total time spent on discharge day more than 30 minutes MTDD
[2017-05-02 11:49] VITALS: BP 151/82
== END 2017-05-02 12:37 | disposition home health service (06) | DRG 291 ==
LOC: ERS 05:01 → 2NO 05:20
PROVIDERS: ADMIT Internal Medicine; ATTEND Internal Medicine
DX: I11.0 Hypertensive heart disease with heart failure (principal); J96.21 Acute and chronic respiratory failure with hypoxia; I24.8 Other forms of acute ischemic heart disease; J96.22 Acute and chronic respiratory failure with hypercapnia; Z99.81 Dependence on supplemental oxygen; I50.43 Acute on chronic combined systolic (congestive) and diastolic (congestive) heart failure; I48.2 Chronic atrial fibrillation; Z79.01 Long term (current) use of anticoagulants; E78.5 Hyperlipidemia, unspecified; E03.9 Hypothyroidism, unspecified; I27.20 Pulmonary hypertension, unspecified; I25.10 Atherosclerotic heart disease of native coronary artery without angina pectoris; J44.9 Chronic obstructive pulmonary disease, unspecified; Z87.891 Personal history of nicotine dependence; R73.9 Hyperglycemia, unspecified; T38.0X5A Adverse effect of glucocorticoids and synthetic analogues, initial encounter
CPT/HCPCS: 36415; 36416; 71010; 80048; 80053; 80162; 81001; 82553; 83036; 83735; 83880; 84484; 85025; 85610; 85730; 93005; 93798; 94640; 96365; 96376; A4216; J1940; J2920; J7620

== ENCOUNTER 2017-05-03 08:57 | Emergency (ER) | payer MEDICARE ==
[2017-05-03] MEDS ORDERED: predniSONE 20 MG TAB ONE (09:55)
== END 2017-05-03 10:20 | disposition home or self-care (01) ==
LOC: ERS 08:57
DX: J44.1 Chronic obstructive pulmonary disease with (acute) exacerbation (principal); I48.91 Unspecified atrial fibrillation; I25.10 Atherosclerotic heart disease of native coronary artery without angina pectoris; E78.5 Hyperlipidemia, unspecified; I10 Essential (primary) hypertension; Z79.82 Long term (current) use of aspirin; Z79.01 Long term (current) use of anticoagulants; Z79.899 Other long term (current) drug therapy
CPT/HCPCS: J7506

== ENCOUNTER 2017-09-22 05:39 | Inpatient (IN) | payer MEDICARE ==
[2017-09-22 06:10] LABS: #Basophils 0.1 thou/uL (0.0-0.2); #Eosinphils 0.3 thou/uL (0.0-0.7); #Lymphocytes 1.8 thou/uL (1.20-3.40); #Monocytes 0.5 thou/uL (0.11-0.59); #Neutrophils 5.2 thou/uL (1.40-6.50); %Basophils 0.6 % (0.0-1.0); %Eosinophils 4.1 % (0.0-10.0); %Lymphocytes 22.7 % (21.0-51.0); %Monocytes 6.3 % (0.0-10.0); %Neutrophils 66.3 % (42.0-75.0); Hemoglobin 16.2 g/dL (12.0-16.0); Mean Corpuscular HGB CONC 34.3 g/dL (32.0-36.0); Mean Corpuscular Hemoglobin 33.6 pg (27.0-31.0); Mean Corpuscular Volume 97.9 fl (81.0-99.0); Platelet Count 189 thou/uL (130-400); RBC Distribution Width 11.6 % (11.5-14.5); Red Blood Cell (RBC) Count 4.82 mill/uL (4.20-5.40); White Blood Cell (WBC) Count 7.9 thou/uL (4.8-10.8)
[2017-09-22 06:21] LABS: INR-International Normal Ratio 1.1; PTT 28.4 SEC (22.9-36.1); Prothrombin Time 14.1 SEC (12.0-14.7)
[2017-09-22] MEDS ORDERED: Heparin 5,000 UNITS/ML VIAL ONE ×2 (06:30→08:00)
[2017-09-22] MEDS ORDERED: Ondansetron HCl/PF 4 MG/2 ML Vial ONE ×2 (06:30→06:32)
[2017-09-22 06:32] LABS: ALT (SGPT) 15 U/L (8-55); AST (SGOT) 22 U/L (5-34); Alkaline Phosphatase 67 U/L (40-150); Anion Gap 12 mmol/L (10-20); BUN (Urea Nitrogen) 21 mg/dL (9.8-20.1); CK (CPK) 49 U/L (29-168); Calc. Creatinine Clearance 0 mL/min (70-130); Calcium 9.6 mg/dL (7.8-10.44); Carbon Dioxide 23 mmol/L (23-31); Chloride 107 mmol/L (98-107); Estimated GFR-MDRD 67; Globulin 2.9 g/dL (2.4-3.5); Glucose 150 mg/dL (83-110); Potassium 4.6 mmol/L (3.5-5.1); Protein, Total 6.9 g/dL (6.0-8.3); Sodium 137 mmol/L (136-145)
[2017-09-22 06:33] LABS: Troponin I 0.024 ng/mL (< 0.028)
[2017-09-22 06:34] LABS: Bilirubin Negative (Negative); Blood, Urine Negative (Negative); Clarity CLEAR (Clear); Glucose, Urine (Dipstick) Negative (Negative); Leukocyte Small (Negative); Nitrite Negative (Negative); Protein, Urine (Dipstick) Negative (Neg-Trace); Specific Gravity, Urine 1.017 (1.002-1.036); Urobilinogen 0.2 mg/dL (0.2-1.0); pH, Urine 6.5 (5.0-9.0)
[2017-09-22 06:36] LABS: Bacteria/HPF None Seen HPF (None Seen); Hyaline Casts/LPF 0-3 HYALINE CAST LPF (0-3 Hyaline); Pathc Cast-AUWi Flag 0.13 (0-2.49); RBC/HPF 0-3 HPF (0-3); Squamous Epithelial 0-3 HPF (0-3); WBC/HPF 0-3 HPF (0-3)
[2017-09-22] MEDS ORDERED: Succinylcholine Chloride 20 MG/ML 10 ml SYRINGE FS ONE (07:20)
[2017-09-22] MEDS ORDERED: Lidocaine 1% PF 5 ML VIAL ONE (07:20)
[2017-09-22] MEDS ORDERED: Heparin 10,000 UNITS/ 10 ML VIAL ONE (07:20)
[2017-09-22] MEDS ORDERED: Propofol 200 MG/20 ML VIAL ONE (07:20)
[2017-09-22] MEDS ORDERED: Protamine Sulfate 50 MG/5 ML VIAL ONE (08:00)
[2017-09-22] MEDS ORDERED: Fentanyl 250 MCG/5 ML VIAL ONE (08:08)
--- NOTE | 2017-09-22 08:17 | RAD ---
RADIOGRAPH CHEST 1 VIEW: HISTORY: An 81-year-old female with left upper extremity hypesthesia (numbness). FINDINGS: This is a supine image, which is insensitive for pneumothorax detection. There is cardiomegaly. The thoracic aorta is tortuous and ectatic. There is no evidence of air space density, pulmonary edema, or pneumothorax. The lateral costophrenic angles are sharp. IMPRESSION: 1) No acute pulmonary findings. 2) Cardiomegaly without congestive heart failure. 3) Ectasia of thoracic aorta. 4) Status post coronary bypass graft surgery. There is evidence for coronary atherosclerotic disease . jn [] POS: MAYA
--- NOTE | 2017-09-22 08:18 | HP ---
HISTORY OF PRESENT ILLNESS: This is an 81-year-old female with a history of atrial fibrillation, who awakened about 4:00 this morning with pain in her left arm and blindness. She may have been having transient episodes of blindness dating back until yesterday, but in any event, the family brought her to the emergency room. PAST MEDICAL HISTORY: Significant for chronic obstructive pulmonary disease, wearing home oxygen, al though she has not smoked in about 30 years. She also has a history of atrial fibrillation, coronary artery disease, hypertension, dyslipidemia, pulmonary hypertension. PAST SURGICAL HISTORY: In[place] [address] Howell and a remote right elbow fracture. MEDICATIONS: Include atorvastatin 20 daily, Cardizem-CD 180 a day, Lasix 40 mg every morning, warfar in 4 mg daily, moexipril 15 mg b.i.d., digoxin 125 mcg a day, Lasix 20 at bedtime, folic acid 1 mg da jhonny, diltiazem 180 a day, and vitamin B12 daily. ALLERGIES: She reports allergies to METOPROLOL and SULFA. PHYSICAL EXAMINATION: GENERAL: She is elderly lady complaining of pain in her left arm. VITAL SIGNS: She is small statured, probably weighs about 100-110 pounds. NECK EXAMINATION: I did not appreciate any carotid bruits. LUNGS: She has expiratory wheezing. CARDIAC EXAM: Bradycardia, irregular rhythm. No murmurs. Healed chest incision. ABDOMEN: Soft and nontender. EXTREMITIES: She has palpable right radial pulse, palpable pedal pulse in each foot with no peripher al edema. She has no palpable radial pulse in the left arm. No palpable brachial pulse, but does powell ve a pulse in her axillary artery. 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 She has no visual perception of light or dark. PLAN: Plan at this time, after reviewing the CT scan, is to do a brachial axillary artery embolectom y. The patient also has a CT finding of a left common carotid artery occlusion, but given that she h as no neurologic findings in the right arm makes me suspicious that this may represent a chronic prob asya rather than an acute problem.
--- NOTE | 2017-09-22 08:51 | CT ---
PRELIMINARY REPORT/[facility]/EMERGENCY AFTER HOURS PROCEDURE: Addendum created by Didier Thorne DO on 09/22/2017 7:17 AM Central Time ([place] & [place]) Additional history of an ischemic left upper extremity with was gained. The lack of opacification of the left upper extremity is consistent with arterial occlusion at the axilla. THIS REPORT CONTAINS FINDINGS THAT MAY BE CRITICAL TO PATIENT CARE. The findings were verbally commun icated via telephone conference with Belen Ch at 7:16 AM NEW MEDIA STRATEGIST on 09/22/2017. The findings we re acknowledged and understood. Initial Report created on 09/22/2017 7:13 AM Central Time ([place] & [place]) EXAM: CT Angiography Chest With Intravenous Contrast CLINICAL HISTORY: 81 years old, female; Pain; Chest pain; Type not specified; Abdominal pain; Generalized; Patient HX: R/O dissection TECHNIQUE: Axial computed tomographic angiography images of the chest with intravenous contrast using pulmonary embolism protocol. CONTRAST: 100 mL of ISOVUE administered intravenously. COMPARISON: No relevant prior studies available. FINDINGS: Pulmonary arteries: There is a 3.4 cm caliber of the main pulmonary artery. This is nonspecific but m ay be secondary to pulmonary artery hypertension or pulmonic valve disease. No pulmonary embolism. Aorta: The ascending thoracic aorta measures up to 4 cm diameter consistent with mild ectasia. This normalizes at the arch. There is no aortic dissection or rupture. There are moderate calcifications o f the aorta. There are moderate calcifications of the aorta. Great vessels of aortic arch: There is a tapered occlusion of the proximal left common carotid artery . There is no opacification of the left upper extremity arterial vasculature beyond the axillary sherin ry. It is unclear whether this is secondary to an occlusion of the vasculature or asymmetric slower f low to the left upper extremity compared to the right. The left subclavian artery reveals no signific ant stenosis. No dissection. Lungs: Moderate centrilobular emphysematous changes are present. There is atelectasis within the lung s. No mass. Pleural space: Unremarkable. No significant effusion. No pneumothorax. Heart: There is cardiomegaly with biatrial cardiac enlargement. There are surgical changes of coronar y artery bypass and there are heavy calcifications of the [place] coronary arteries. No significant pe ricardial effusion. No evidence of RV dysfunction. Bones/joints: There are surgical changes consistent with prior sternotomy. There is a mildly exaggera emi thoracic kyphosis. There is degenerative fusion of 3 mid to lower thoracic vertebral segments. No acute fracture. No dislocation. Soft tissues: Unremarkable. Lymph nodes: Unremarkable. No enlarged lymph nodes. IMPRESSION: 1. The ascending thoracic aorta measures up to 4 cm diameter consistent with mild ectasia. This nadeem lizes at the arch. There is no aortic dissection or rupture. 2. 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 3. There is no opacification of the left upper extremity arterial vasculature beyond the axillary art carmencita. It is unclear whether this is secondary to an occlusion of the vasculature or asymmetric slower flow of the left upper extremity compared to the right. The left subclavian artery reveals no signif icant stenosis. 4. There is a 3.4 cm caliber of the main pulmonary artery. This is nonspecific but may be secondary t o pulmonary artery hypertension or pulmonic valve disease. 5. Additional nonacute findings as described above. This interpretation was based upon the receipt of 423 image(s). EXAM: CT Angiography Abdomen and Pelvis With Intravenous Contrast CLINICAL HISTORY: 81 years old, female; Pain; Chest pain; Type not specified; Abdominal pain; Generalized; Patient HX: R/O dissection TECHNIQUE: Axial computed tomographic angiography images of the abdomen and pelvis with intravenous contrast. CONTRAST: 100 mL of ISOVUE administered intravenously. COMPARISON: No relevant prior studies available. FINDINGS: Lower thorax: See above. VASCULATURE: Aorta: There is no abdominal aortic aneurysm, dissection, high-grade stenosis or rupture. Celiac trunk and mesenteric arteries: There is 25% stenosis of the celiac artery origin. Renal arteries: There is 20% stenosis of the right renal artery origin. There is 50% stenosis of the left proximal renal artery. Iliac arteries: No acute process. No occlusion or significant stenosis. Other arteries: There is 10% stenosis of the superior mesenteric artery origin. ABDOMEN: Liver: There is a subtle nodular contour of the liver which may represent hepatic cirrhosis. There ar e several tiny subcentimeter hyperdense enhancing nodules throughout the liver, with a 6 mm nodule in the inferior medial segment left hepatic lobe selected for characterization on image 125 of series 2 . Gallbladder and bile ducts: There is cholelithiasis without evidence of gallbladder inflammation. No ductal dilation. Pancreas: Unremarkable. No ductal dilation. No mass. Spleen: Unremarkable. No splenomegaly. Adrenals: Unremarkable. No mass. Kidneys and ureters: There are subcentimeter benign bilateral renal cysts. There is no acute renal pr ocess detected. Stomach and bowel: There is segmental thickening of the colon from the ascending segment to the dista l descending segment. The segment is also nondistended. There is no pericolonic fat stranding. This may be due to colon spasm but I cannot entirely exclude segmental colitis. Appendix: No findings to suggest acute appendicitis. PELVIS: Bladder: Unremarkable. No mass. Reproductive: Unremarkable as visualized. ABDOMEN and PELVIS: Intraperitoneal space: Unremarkable. No significant fluid collection. No free air. Bones/joints: There is a subacute to chronic appearing minimally displaced fracture deformity of the S1-S2 level of the sacrum and right sacral ala. No dislocation. Soft tissues: Unremarkable. Lymph nodes: Unremarkable. No enlarged lymph nodes. IMPRESSION: 1. There is no abdominal aortic aneurysm, dissection, high-grade stenosis or rupture. 2. There is a subtle nodular contour of the liver which may represent hepatic cirrhosis. There are se veral tiny subcentimeter hyperdense enhancing nodules throughout the liver, with a 6 mm nodule in the inferior medial segment left hepatic lobe selected for characterization on image 125 of series 2. These enhancing nodules could be regenerative nodules, small hemangiomas, or malignancy. Recommend no nemergent liver protocol MRI without and with contrast to evaluate further. 3. There is segmental thickening of the colon from the ascending segment to the distal descending seg ment. The segment is also nondistended. There is no pericolonic fat stranding. This may be due to col on spasm but I cannot entirely exclude segmental colitis. 4. There is a subacute to chronic appearing minimally displaced fracture deformity of the S1-S2 level of the sacrum and right sacral ala. 5. Additional nonacute findings as described above. This interpretation was based upon the receipt of 423 image(s). Thank you for allowing us to participate in the care of your patient. Dictated and Authenticated by: Didier Thorne DO 09/22/2017 7:13 AM Central Time ([place] & [place]) FINAL REPORT EMERGENCY AFTER HOURS STUDY CTA THORAX WITH CONTRAST CTA ABDOMEN WITH CONTRAST CTA PELVIS WITH CONTRAST: (Computed Tomographic Angiography, chest(noncoronary) with contrast material, and image post processi ng) (Computed Tomographic Angiography, abdomen and pelvis with contrast material, and image post processi ng) HISTORY: An 81-year-old female with ischemia of left upper extremity. Rule out occlusion. TECHNIQUE: IV injection of iodinated contrast: administered. Arterial phase bolus chasing technique. Scan acquisition from top of top of aortic arch to symphysis pubis. Three-D MIP reconstructions in coronal and sagittal planes. FINDINGS: This report agrees with preliminary report by [facility]. IMPRESSION: 1. Acute thrombosis and occlusion of the left axillary and left brachial arteries. 2. 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 3. Evidence for pulmonary arterial hypertension. 4. Cardiomegaly with 4-chamber dilation. 5. Atherosclerosis, ectasia, and tortuosity of entire aorta without dissection. 6. Many other findings as mentioned by preliminary repot by [facility]. justino[] POS: MAYA
[2017-09-22] MEDS ORDERED: Promethazine HCl 25 MG/ML VIAL IM PRN (09:31)
[2017-09-22] MEDS ORDERED: Ondansetron HCl/PF 4 MG/2 ML Vial IVP PRN (09:31)
[2017-09-22] MEDS ORDERED: Promethazine HCl 25 MG/ML VIAL SLOW IVP PRN (09:31)
--- NOTE | 2017-09-22 10:15 | OP ---
PREOPERATIVE DIAGNOSIS: Embolus to left subclavian - axillary artery with possible vertebral artery embolic event. PROCEDURE: Left brachial embolectomy SURGEON: Dr. Magana. ANESTHESIA: General. ESTIMATED BLOOD LOSS: 25 mL. PROCEDURE IN DETAIL: After prepping and draping, incision was made just proximal to the antecubital space exposing the brachial artery and looping it with loops. Transverse incision was made after a d ose of heparin had been given. There was minimal bleeding, forward bleeding and back bleeding. Tape s were secured distally and Timmy catheter passed multiple times proximally up to initially 20 and then 30 cm removing a large amount of thrombus. Following this, there was explosive forward bleeding . Heparin saline was used to flush proximally following which arteriotomy was closed with a 7-0 Prol kriss running suture. Flow was then restored distally. The patient had a good radial pulse. Wound wa s then closed in layers and the patient is to be taken to the recovery room and guarded condition.
[2017-09-22] MEDS ORDERED: Enoxaparin Sodium 60 MG/0.6 ML SYRINGE SC SCH ×2 (11:32→14:00)
[2017-09-22] MEDS ORDERED: Bisacodyl 5 MG TAB PO PRN (11:32)
[2017-09-22] MEDS ORDERED: Ondansetron ODT 4 MG TAB PO PRN (11:32)
[2017-09-22] MEDS ORDERED: Milk Of Magnesia 30 ML UDCUP PO PRN (11:32)
[2017-09-22] MEDS ORDERED: Sodium Chloride 0.9% 1,000 ML IV SCH (11:32)
[2017-09-22] MEDS ORDERED: Guaifenesin DM 100-10/5 ML UDCUP PO PRN (11:32)
[2017-09-22] MEDS ORDERED: ISOVUE-370 76%-LOCM 1 ML ONE ×2 (14:35→14:38)
--- NOTE | 2017-09-22 14:52 | CON ---
DATE OF CONSULTATION: 09/22/2017 REFERRING PHYSICIAN: Dr. Pardeep Magana. REASON FOR CONSULTATION: Bilateral visual loss. HISTORY OF PRESENT ILLNESS: Ms. Coleman is a pleasant 81-year-old female, who has been con sulted for evaluation of bilateral visual loss. History is obtained from patient's family members wh o were present at bedside. Patient has a history of atrial fibrillation. She is on Coumadin for ant icoagulation therapy for atrial fibrillation. She woke up this morning around 4:00 with pain in her left arm. She also complained of vision loss in both eyes which prompted the family moved to bring h er to the [facility]. She was last seen normal around 6:00 p.m. when she went to bed. Daughter reports that prior to this, she had not complained of any headache, vision changes, numbne ss, tingling, weakness, difficulty with balance, difficulty with speech, chest pain, palpitation, lig htheadedness or dizziness. PAST MEDICAL HISTORY: Significant for COPD, chronic atrial fibrillation on Coumadin, coronary artery disease, hypertension, dyslipidemia, and pulmonary hypertension. PAST SURGICAL HISTORY: Significant for CABG in 2001. CURRENT MEDICATIONS: Please review MAR. ALLERGIES: Include METOPROLOL and SULFA DRUGS. FAMILY HISTORY: Noncontributory. SOCIAL HISTORY: She does not smoke cigarettes, drink alcohol or use illicit drugs. REVIEW OF SYSTEMS: As mentioned earlier, which was negative. PHYSICAL EXAMINATION: VITAL SIGNS: Blood pressure of 159/82, pulse of 55, temperature of 97.7, respirations of 18, O2 sats of 93% on 2 liter nasal cannula. GENERAL: Well-developed, well-nourished female in no apparent distress. RESPIRATORY: Clear to auscultation bilaterally. CARDIOVASCULAR: Regular rate and rhythm. NEUROLOGIC: Mental status: The patient is awake, alert, and oriented x3. Speech and language: Flu ent speech. Cranial nerves: Pupils are 3 mm and reactive. 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 The re is no light or finger motion perception in both eyes. Extraocular muscles are intact. There is n o ptosis noted. No facial weakness noted. Tongue and uvula are midline. Motor exam showed normal t one and bulk with a 5/5 strength in both upper and lower extremities. She has no pronator drift. Se nsory: Sensation is intact and symmetric. Gait and Romberg coordination could not be tested. LABORATORY DATA: Reviewed, which included CBC, CMP, BNP, troponin, CK-MB, urinalysis, which is signi ficant for hemoglobin 16.2, hematocrit 47.1, PT of 14.1, INR 1.1 and PTT of 28.4. BNP of 113, otherw ise unremarkable. 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 IMPRESSION: 1. 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 2. Acute left axillary artery thrombosis, status post thrombectomy. 3. Atrial fibrillation with a subtherapeutic INR. ASSESSMENT AND PLAN: Ms. Coleman is a pleasant 81-year-old female who presented with an ac [place] onset of bilateral blindness along with the left arm pain. She had thrombus in the left left axi lla and brachial artery, this is likely embolic in origin. She does have complete blindness in both eyes, this is suggestive of bilateral occipital infarct. This is likely embolic in origin. I would recommend obtaining MRI brain without contrast. I agree with starting her on Eliquis for anticoagula tion therapy and discontinuing Coumadin. Consult PT, OT. I have discussed with the family and carlotta delgadillo treatment plan. Thank you for consultation.
[2017-09-22 20:03] LABS: #Eosinphils 0.1 thou/uL (0.0-0.7); #Lymphocytes 1.3 thou/uL (1.20-3.40); #Monocytes 0.6 thou/uL (0.11-0.59); #Neutrophils 6.7 thou/uL (1.40-6.50); %Basophils 0.4 % (0.0-1.0); %Eosinophils 1.2 % (0.0-10.0); %Lymphocytes 14.9 % (21.0-51.0); %Monocytes 6.8 % (0.0-10.0); %Neutrophils 76.7 % (42.0-75.0); Hemoglobin 14.4 g/dL (12.0-16.0); Mean Corpuscular Hemoglobin 33.6 pg (27.0-31.0); Mean Platelet Volume 7.8 fL (7.4-10.4); Platelet Count 171 thou/uL (130-400); RBC Distribution Width 11.7 % (11.5-14.5); Red Blood Cell (RBC) Count 4.28 mill/uL (4.20-5.40); White Blood Cell (WBC) Count 8.8 thou/uL (4.8-10.8)
[2017-09-22 20:10] LABS: INR-International Normal Ratio 1.1; Prothrombin Time 14.7 SEC (12.0-14.7)
[2017-09-22 20:11] LABS: PTT 41.2 SEC (22.9-36.1)
[2017-09-22 20:17] LABS: ALT (SGPT) 10 U/L (8-55); AST (SGOT) 15 U/L (5-34); Albumin 3.5 g/dL (3.4-4.8); Alkaline Phosphatase 60 U/L (40-150); Anion Gap 8 mmol/L (10-20); BUN (Urea Nitrogen) 16 mg/dL (9.8-20.1); Bilirubin, Total 0.8 mg/dL (0.2-1.2); Calc. Creatinine Clearance 44 mL/min (70-130); Calcium 8.7 mg/dL (7.8-10.44); Carbon Dioxide 23 mmol/L (23-31); Chloride 108 mmol/L (98-107); Estimated GFR-MDRD 72; Globulin 1.8 g/dL (2.4-3.5); Glucose 145 mg/dL (83-110); Potassium 4.3 mmol/L (3.5-5.1); Protein, Total 5.3 g/dL (6.0-8.3); Sodium 135 mmol/L (136-145)
[2017-09-22 20:18] LABS: CKMB 4.3 ng/mL (0-6.6); Troponin I 0.026 ng/mL (< 0.028)
--- NOTE | 2017-09-22 21:32 | CT ---
NONCONTRAST CT HEAD 09/22/17 HISTORY: Right leg weakness, slurred speech, disoriented and confused. COMPARISON: None available. FINDINGS: There are low density areas seen within each occipital lobe suggesting acute infarctions in each occi pital lobe. There are scattered areas of decreased attenuation in the periventricular white matter likely reflect norman of chronic small vessel ischemic changes. Low density area in the left cerebellar hemispheres con sistent with an infarction in which the exact age is indeterminate, but probably more remote in origi n. There is no evidence of a hemorrhage, mass effect, or midline shift. There is diffuse cerebral volume loss. The ventricles are mildly prominent and out of proportion to the degree of sulcal atrophy like ly on the basis of greater central cerebral atrophy. Dense vascular calcifications are seen within the distal left vertebral and basilar artery as well as in the region of the carotid siphons. There is ectasia of the distal left vertebral artery and basil ar artery. Visualized paranasal sinuses and mastoid air cells are clear. Calvarial structures are intact. IMPRESSION: 1. Acute cortical infarctions in each occipital lobe in the distribution of the posterior cerebr al arteries. 2. Chronic small vessel ischemic changes and cerebral volume loss. 3. Densely calcified distal left vertebral artery as well as dense vascular calcifications in th e carotid siphons. There is ectasia of the distal left vertebral artery and basilar artery. 4. Infarction in left cerebellar hemisphere of indeterminate age but probably remote in origin. 5. Cerebral volume loss. Above findings discussed with Dr. Sanders on 09/22/17 at 2011 hours.
[2017-09-22] MEDS: Famotidine 20 MG TAB PO SCH (22:31)
[2017-09-22] MEDS: Apixaban 5 MG TAB PO SCH (22:31)
[2017-09-22] MEDS: Atorvastatin Calcium 20 MG TAB PO SCH (22:31)
[2017-09-22] MEDS: Docusate 100 MG CAP PO SCH (22:32)
[2017-09-22] MEDS: Losartan 25 MG TAB PO SCH (22:32)
--- NOTE | 2017-09-22 22:43 | CT ---
CT ANGIOGRAM BRAIN WITH IV CONTRAST AND 3D RECONSTRUCTIONS CT ANGIOGRAM NECK WITH IV CONTRAST AND 3D RECONSTRUCTIONS 09/22/17 HISTORY: Right leg weakness, slurred speech, blindness. Disoriented and confused. CT ANGIOGRAM NECK: There are dense vascular calcifications in the aortic arch as well as vascular calcifications involvi ng the great vessels. The left subclavian artery as well as the innominate artery and right subclavia n artery are patent. There is occlusion of the right common carotid artery approximately 2 cm distal to the origin with complete occlusion of the left common carotid artery and left internal carotid art carmencita. The right common carotid artery is patent. There is atherosclerotic plaque and calcifications at the origin of the right internal carotid artery resulting in mild narrowing, but the degree of narrowing is less than 50% according to NASCET criteria. The right external carotid artery is patent. The bilateral vertebral arteries are patent, but the left vertebral artery is dominant. The right joey tebral artery terminates in PICA which is a normal variant. The basilar artery is tortuous and ectati c but no significant narrowing is seen within the basilar artery and there is no thrombus present. There are mild emphysematous changes within the upper lobes. Degenerative changes are seen in the spine. There is prominent veins seen in the right aspect of the neck just nonspecific. IMPRESSION: 1. 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 2. Patent bilateral vertebral arteries, but the right vertebral artery is small in caliber and t erminates in PICA. The left vertebral artery is patent throughout its course. Basilar artery is also patent but ectatic and tortuous. 3. Mild (less than 50%) stenosis involving the proximal right internal carotid artery based on N ASCET criteria. CT ANGIOGRAM BRAIN WITH IV CONTRAST AND 3D RECONSTRUCTIONS: As noted on CTA of the neck, the basilar artery is ectatic with vascular calcifications present. The posterior cerebral arteries are patent bilaterally. The most distal aspect of the left posterior cere bral artery tapers and is not well seen in the most distal aspect of the left occipital lobe at the l evel of the infarction. However, this tapering and nonvisualization of most distal aspect of the left posterior cerebral artery could be related to occlusion or tapering due to peripheral positioning of the artery. The right vertebral artery terminates in PICA. The left internal carotid artery is occluded as noted on the CTA of the neck. The anterior cerebral a rteries are patent. The anterior communicating artery is also patent. The bilateral middle cerebral arteries are patent. No aneurysm is seen within the limitations of the technique of this exam. IMPRESSION: 1. Occlusion of the left internal carotid artery. 2. The basilar artery is patent but tortuous and ectatic. The left posterior cerebral artery tap ers and possibly occludes at the level of the infarction in the left occipital lobe. 3. Middle cerebral arteries are patent bilaterally. 4. Above findings discussed with Dr. Sanders on 09/22/17 at 2056 hours. POS: YAEL
[2017-09-23] MEDS: Levothyroxine Sodium 100 MCG TAB PO SCH (05:49)
[2017-09-23] MEDS ORDERED: Furosemide 40 MG TAB PO SCH (07:30)
[2017-09-23] MEDS: Famotidine 20 MG TAB PO SCH ×2 (09:05→21:19)
[2017-09-23] MEDS: Docusate 100 MG CAP PO SCH ×2 (09:05→21:20)
[2017-09-23] MEDS: Apixaban 5 MG TAB PO SCH ×2 (09:05→21:19)
[2017-09-23] MEDS: Digoxin 0.125 MG TAB PO SCH (09:05)
[2017-09-23] MEDS: Losartan 25 MG TAB PO SCH ×2 (09:06→21:19)
--- NOTE | 2017-09-23 11:52 | MRI ---
MRI BRAIN NONCONTRAST: DATE: 09/23/17. TIME: 10:03 a.m. HISTORY: An 81-year-old female with acute stroke. Dysarthria, disorientation, confusion, right lower extremit y weakness. COMPARISON: No prior MRIs of the brain. FINDINGS: There are bilateral moderate-sized regions of cytotoxic edema, with restricted diffusion, in the bila teral occipital lobes. There is absence of the flow void of the left carotid siphon. There are flow voids in the bilateral middle cerebral arteries and anterior cerebral arteries, as well as basilar a rtery. The lateral and third ventricles are mildly to moderately dilated on an ex vacuo basis. Ther e are tiny foci of hemosiderin representing remote hemorrhages: several in the left thalamus; and in the globus pallidus of bilateral basal ganglia, one on each side. Small focus of hemorrhage within t he right occipital acute infarction, of indeterminate age, chronic versus acute. There are moderate chronic ischemic white matter changes. No mass effect or midline shift. There is a small focus of cy totoxic edema with strongly restricted diffusion in the posterior aspect of the left cerebellar hemis phere. There are diffuse involutional changes of the brain. IMPRESSION: 1. Acute/subacute bilateral occipital infarctions, in the bilateral posterior cerebral artery (GOLF MANAGER) territories. 2. Acute/subacute infarction in the left cerebellum, in the left posterior-inferior cerebellar arter y (PICA) territory. 3. No mass effect. 4. Chronic occlusion of the left internal carotid artery. 5. Left middle cerebral artery is supplied via collateral flow from [place], probably via p atent anterior communicating artery. MELA Collins POS: MAYA
--- NOTE | 2017-09-23 16:33 | PRG ---
DATE OF SERVICE: 09/23/2017 SUBJECTIVE: Ms. Coleman is a pleasant 81-year-old female who presented yesterday with a milian dden onset of left arm pain and bilateral blindness. She was found to have thrombus in the left axil miky and brachial artery and bilateral occipital stroke. Yesterday evening, she had sudden worsening of her symptoms with a right facial droop and right lower extremity weakness for which code green wa s initiated. At that time, I had obtained a CT head without contrast, which showed hypodensities in the bilateral occipital region as well as left cerebellar region. I had also obtained a CT angiogram of the head and neck, which showed occlusion of the left ICA, but the vertebral and basilar arteries were patent. At that point, I have decided that the patient will be continued on anticoagulation th joseluis with Kari. Today, the patient's family reports that she had 1 or 2 more episodes of right-s ided facial droop, slurred speech, and right lower extremity weakness, which is now waxing and waning . Currently, the patient denies any headache, chest pain, palpitation, numbness, tingling or weaknes s. She continues to have bilateral blindness. OBJECTIVE: VITAL SIGNS: Blood pressure of 155/86, pulse of 88, temperature of 98.9, respirations of 18 and O2 s ats 95% on room air. GENERAL: A well-developed, well-nourished female in no apparent distress. RESPIRATORY: Clear to auscultation bilaterally. CARDIOVASCULAR: Regular rate and rhythm. NEUROLOGICAL: Mental status: The patient is awake, alert and oriented x3. Speech and language: Fl uent speech. Cranial nerves: Pupils are 3 mm and reactive. 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 Ex traocular muscles are intact. Face appears symmetric. Tongue and uvula are midline. Motor exam ania wed normal tone and bulk with a 5/5 strength in both upper and lower extremities. There is no pronat or drift noted in both upper and lower extremities. LABORATORY DATA: Labs are reviewed, which included CBC and CMP, which is essentially normal except a glucose of 145. IMAGING STUDIES: MRI brain without contrast was reviewed, which showed acute ischemic infarct involv ing the bilateral occipital region as well as the left cerebellum, otherwise unremarkable. CT angiog devendra of the head and neck from yesterday was reviewed, which showed occlusion of the left common carot id and left internal carotid arteries. The vertebral arteries were patent as well as the basal arter y was patent. IMPRESSION: 1. Cardioembolic ischemic infarct involving bilateral occipital region. 2. Bilateral blindness, due to #1. 3. Atrial fibrillation. PLAN: Ms. Coleman is a pleasant 81-year-old female who presented with the bilateral blindn ess. She had worsening of her symptoms yesterday for which an emergent CTA head and neck were done, which did not show any involvement of the posterior circulation. Her symptoms have since improved. I discussed with the family that she needs to continue on Eliquis for secondary stroke prevention. Anuja garcía had concerns as they had watched the commercials on TV regarding the lawsuit spending for Eliquis . I have explained that there are risks associated with Eliquis, but the benefit outweighs the risk of the medication and I would strongly recommend continuing her on Eliquis. She will need inpatient rehabilitation. She will be okay to be discharged to rehab when medically stable. No further neurol ogical workup needed from my standpoint.
[2017-09-23] MEDS: Atorvastatin Calcium 20 MG TAB PO SCH (21:20)
[2017-09-24 07:19] LABS: #Basophils 0.1 thou/uL (0.0-0.2); #Eosinphils 0.1 thou/uL (0.0-0.7); #Monocytes 0.7 thou/uL (0.11-0.59); #Neutrophils 7.3 thou/uL (1.40-6.50); %Basophils 0.8 % (0.0-1.0); %Eosinophils 0.8 % (0.0-10.0); %Lymphocytes 10.7 % (21.0-51.0); %Monocytes 7.2 % (0.0-10.0); %Neutrophils 80.5 % (42.0-75.0); Hemoglobin 16.2 g/dL (12.0-16.0); Mean Corpuscular HGB CONC 32.4 g/dL (32.0-36.0); Mean Corpuscular Hemoglobin 32.5 pg (27.0-31.0); Mean Platelet Volume 8.1 fL (7.4-10.4); Platelet Count 179 thou/uL (130-400); RBC Distribution Width 11.5 % (11.5-14.5); Red Blood Cell (RBC) Count 4.97 mill/uL (4.20-5.40)
[2017-09-24] MEDS ORDERED: Lorazepam 2 MG/ML VIAL ONE (07:20)
[2017-09-24 07:25] LABS: Calcium 9.4 mg/dL (7.8-10.44); Chloride 106 mmol/L (98-107); Potassium 4.1 mmol/L (3.5-5.1); Sodium 138 mmol/L (136-145)
[2017-09-24 07:26] LABS: Glucose 98 mg/dL (83-110); Triglycerides 61 mg/dL (Less than 150)
[2017-09-24 07:27] LABS: Anion Gap 12 mmol/L (10-20); Carbon Dioxide 24 mmol/L (23-31)
[2017-09-24 07:28] LABS: INR-International Normal Ratio 1.1; PTT 32.7 SEC (22.9-36.1); Prothrombin Time 14.4 SEC (12.0-14.7)
[2017-09-24 07:30] LABS: BUN (Urea Nitrogen) 13 mg/dL (9.8-20.1); Calc. Creatinine Clearance 47 mL/min (70-130); Estimated GFR-MDRD 76
[2017-09-24] MEDS ORDERED: Lorazepam 2 MG/ML VIAL SLOW IVP SCH (07:30)
[2017-09-24 07:31] LABS: BHCG - Serum Negative (NEGATIVE); Pregs Control Background? CLEAR/WHITE (CLR/WHITE); Pregs Control Bar Appear? YES (CONTROL BAR)
[2017-09-24 07:31] LABS: Cholesterol 156 mg/dl (< 200 Desired)
[2017-09-24 07:32] LABS: Cardiac Risk 2.7 (Less than 4.5); HDL Cholesterol 58 mg/dL (>60 Neg Risk); LDL Cholesterol, Calculated 86 mg/dL
[2017-09-24 07:42] LABS: CKMB 2.3 ng/mL (0-6.6); Troponin I 0.028 ng/mL (< 0.028)
--- NOTE | 2017-09-24 07:54 | CT ---
HEAD CT NONCONTRAST: INDICATION: Facial droop. The patient was recently diagnosed with strokes 2 days prior. FINDINGS: Expected interval evolution of bilateral posterior distribution infarctions which involve the occipit al lobe. There is also a moderate-sized wedge-shaped subacute infarction of the left cerebellar akbar sphere posteromedially. Findings are superimposed upon mild chronic microvascular ischemic disease. There is parenchymal volume loss and compensatory dilatation of the ventricular system. No interval significant mass effect or evidence of acute intracranial hemorrhage. Density of the bilateral MCA i s stable appearing. IMPRESSION: 1. Redemonstration of bilateral posterior distribution infarctions, with expected interval evolution vito changes from the exam 2 days prior. 2. No intracranial hemorrhage or new mass effect is seen. Findings called to Neurologist, Antonieta Sanders, 0737 hours, 09/24/2017. POS: MAYA
[2017-09-24] MEDS: Levothyroxine Sodium 100 MCG TAB PO SCH (08:08)
--- NOTE | 2017-09-24 11:27 | EKG ---
Test Reason : STAT Blood Pressure : / mmHG Vent. Rate : 073 BPM Atrial Rate : 076 BPM P-R Int : 000 ms QRS Dur : 090 ms QT Int : 368 ms P-R-T Axes : 000 -19 211 degrees QTc Int : 405 ms Atrial fibrillation Abnormal ECG When compared with ECG of 22-SEP-2017 05:42, Incomplete left bundle branch block is no longer Present Confirmed by DR. Lexis MCCOY ([id number]) on 09/24/2017 11:27:02 AM Referred By: JOSETTE Confirmed By:DR. Lexis MCCOY
--- NOTE | 2017-09-24 15:13 | CT ---
CT ANGIOGRAM BRAIN WITH IV CONTRAST AND 3D RECONSTRUCTIONS CT ANGIOGRAM NECK WITH IV CONTRAST AND 3D RECONSTRUCTIONS 09/22/17 HISTORY: Right leg weakness, slurred speech, blindness. Disoriented and confused. CT ANGIOGRAM NECK: There are dense vascular calcifications in the aortic arch as well as vascular calcifications involvi ng the great vessels. The left subclavian artery as well as the innominate artery and right subclavia n artery are patent. There is occlusion of the right common carotid artery approximately 2 cm distal to the origin with complete occlusion of the left common carotid artery and left internal carotid art carmencita. The right common carotid artery is patent. There is atherosclerotic plaque and calcifications at the origin of the right internal carotid artery resulting in mild narrowing, but the degree of narrowing is less than 50% according to NASCET criteria. The right external carotid artery is patent. The bilateral vertebral arteries are patent, but the left vertebral artery is dominant. The right joey tebral artery terminates in PICA which is a normal variant. The basilar artery is tortuous and ectati c but no significant narrowing is seen within the basilar artery and there is no thrombus present. There are mild emphysematous changes within the upper lobes. Degenerative changes are seen in the spine. There is prominent veins seen in the right aspect of the neck just nonspecific. IMPRESSION: 1. 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 2. Patent bilateral vertebral arteries, but the right vertebral artery is small in caliber and t erminates in PICA. The left vertebral artery is patent throughout its course. Basilar artery is also patent but ectatic and tortuous. 3. Mild (less than 50%) stenosis involving the proximal right internal carotid artery based on N ASCET criteria. CT ANGIOGRAM BRAIN WITH IV CONTRAST AND 3D RECONSTRUCTIONS: As noted on CTA of the neck, the basilar artery is ectatic with vascular calcifications present. The posterior cerebral arteries are patent bilaterally. The most distal aspect of the left posterior cere bral artery tapers and is not well seen in the most distal aspect of the left occipital lobe at the l evel of the infarction. However, this tapering and nonvisualization of most distal aspect of the left posterior cerebral artery could be related to occlusion or tapering due to peripheral positioning of the artery. The right vertebral artery terminates in PICA. The left internal carotid artery is occluded as noted on the CTA of the neck. The anterior cerebral a rteries are patent. The anterior communicating artery is also patent. The bilateral middle cerebral arteries are patent. No aneurysm is seen within the limitations of the technique of this exam. IMPRESSION: 1.Occlusion of the left internal carotid artery. 2. The basilar artery is patent but tortuous and ectatic. The most distal left posterior cerebra l artery tapers and possibly occludes at the level of the infarction in the left occipital lobe. 3.Middle cerebral arteries are patent bilaterally. Above findings discussed with Dr. Sanders on 09/22/17 at 2056 hours.
[2017-09-24] MEDS: Digoxin 0.125 MG TAB PO SCH ×2 (16:11→16:12)
[2017-09-24] MEDS: Apixaban 5 MG TAB PO SCH ×2 (16:12→20:04)
[2017-09-24] MEDS: Losartan 25 MG TAB PO SCH ×2 (16:13→20:05)
[2017-09-24] MEDS: Docusate 100 MG CAP PO SCH ×2 (16:14→20:05)
[2017-09-24] MEDS: Famotidine 20 MG TAB PO SCH ×3 (16:19→20:05)
--- NOTE | 2017-09-24 18:49 | PDOC.PN ---
- Subjective Encounter Start Date: 09/24/17 Encounter Start Time: 17:00 pAtient is admitted by Dr. 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 Patient has her daughter who is medical poower of energy attorney. Patient is pulling out IV lines and difficult keep her Telmonitor leads. Pt has Afib with Rapid Rate and high blood pressures. Hospitalist was consulted due to multiple comorbidities and mendical maangement. - Objective Resuscitation Status: Resuscitation Status FULL:Full Resuscitation MAR Reviewed: Yes Vital Signs & Weight: Vital Signs (12 hours) Temp Pulse Pulse Pulse Pulse Pulse Resp 09/24/17 16:52 97.5 F L 96 20 09/24/17 16:12 96 09/24/17 16:11 96 09/24/17 09:05 92 24 H 09/24/17 08:00 97.9 F 88 16 09/24/17 07:07 130 H 130 H 110 H 90 Resp Resp Resp Resp BP BP BP 09/24/17 16:52 09/24/17 16:12 09/24/17 16:11 09/24/17 09:05 09/24/17 08:00 09/24/17 07:07 24 H 24 H 16 16 160/116 H 157/128 H 156/119 H BP BP Pulse Ox Pulse Ox Pulse Ox Pulse Ox 09/24/17 16:52 199/95 H 92 L 09/24/17 16:12 09/24/17 16:11 09/24/17 09:05 09/24/17 08:00 09/24/17 07:07 159/85 H 93 L 91 L 90 L Weight Admit Weight 111 lb 14.4 oz Weight 111 lb 14.4 oz I&O: 09/23/17 09/24/17 09/25/17 06:59 06:59 06:59 Intake Total 1608 1110 71 Output Total 150 Balance 1458 1110 71 Result Diagrams: 09/24/17 07:11 09/24/17 06:57 Additional Labs: Accuchecks 09/24/17 07:06 POC Glucose 104 Radiology Reviewed by me: Yes EKG Reviewed by me: Yes Phys Exam - Physical Examination HEENT: PERRLA, moist MMs, oral pharynx no lesions Neck: no nodes, no JVD Respiratory: wheezing present Cardiovascular: no rub, gallop, irregular Gastrointestinal: soft, non-tender Musculoskeletal: no edema, pulses present Right uppper and lower Extremity motor and senroty deficits, With Blindess Dx/Plan (1) Acute left arterial ischemic stroke, ICA (internal carotid artery) Code(s): I63.232 - CEREB INFRC DUE TO UNSP OCCLS OR STENOS OF LEFT CAROTID ART Status: Acute Comment: Patient bilateral Cerebellar and Posterior Cerebral infaractions,. pt is seen by Neurology Dr. Sanders, pt is on Eliquis and Statins. (2) Acute encephalopathy Code(s): G93.40 - ENCEPHALOPATHY, UNSPECIFIED Status: Acute Comment: Patient is altered likely from Stroke. Will discuss with Daughter for her decision making. (3) Acute on chronic respiratory failure with hypoxia Code(s): J96.21 - ACUTE AND CHRONIC RESPIRATORY FAILURE WITH HYPOXIA Status: Acute Comment: Will continue with Nebs, Duonebs and Albuteral nebs [place] Monitor her oxygenation as she is pulling off her oxygen. (4) Atrial fibrillation with RVR Code(s): I48.91 - UNSPECIFIED ATRIAL FIBRILLATION Status: Acute Comment: Pt is pulling off the Telemetry leads, So will give , Cardizem push scheduled q 6hrs to keep HR < 100, pt tKES 240MG cARDIZEM, HOME, HER CARDIOLOGY IS Dr. PRESSLEY, WILL NEED tO cONSULT iN aM. (5) CAD (coronary artery disease) Code(s): I25.10 - ATHSCL HEART DISEASE OF [place] CORONARY ARTERY W/O ANG PCTRS Status: Chronic Qualifiers: Coronary Disease-Associated Artery/Lesion type: [place] artery [place] vs. transplanted heart: [place] heart Associated angina: without angina Qualified Code(s): I25.10 - Atherosclerotic heart disease of [place] coronary artery without angina pectoris (6) COPD (chronic obstructive pulmonary disease) Status: Chronic Qualifiers: COPD type: chronic bronchitis Chronic bronchitis type: simple Qualified Code(s): J41.0 - Simple chronic bronchitis Comment: mild flare but controlled with Prednisone 40mg daily, continue supportive measures (7) HTN (hypertension) Code(s): I10 - ESSENTIAL (PRIMARY) HYPERTENSION Status: Chronic Qualifiers: Hypertension type: essential hypertension Qualified Code(s): I10 - Essential (primary) hypertension Comment: Poorly controlled, Continue on Home meds, will do hydralazine 10mg q 6hr PRn > 150. (8) Dysphagia as late effect of stroke Code(s): I69.391 - DYSPHAGIA FOLLOWING CEREBRAL INFARCTION Status: Acute Comment: Will need to Discuss with Family about Tube feding/ peg tube placement. Speech Evalaution tomorrow., - Plan plan discussed w/ family, PT/OT, social science professor, speech therapy, respiratory therapy, incentive spirometry * . - Discharge Day Encounter end time: 17:45 Review of Systems - Review of Systems Other: Unable to get ROS due to Encephalopathy from Stroke. - Medications/Allergies Allergies/Adverse Reactions: Allergies Allergy/AdvReac Type Severity Reaction Status Date / Time metoprolol tartrate Allergy Verified 04/19/16 20:07 [From Lopressor] Sulfa (Sulfonamide Allergy Verified 04/19/16 20:07 Antibiotics) Medications: Current Medications Acetaminophen (Tylenol) 650 mg PO Q4H PRN PRN Reason: Headache/Fever or Pain Albuterol/Ipratropium (Duoneb) 3 ml NEB [id number] PRN PRN Reason: SOB &/or Wheezing Albuterol/Ipratropium (Duoneb) 3 ml EZPAP [id number] [facility] Apixaban (Eliquis) 2.5 mg PO BID [facility] Last Admin: 09/24/17 16:12 Dose: 2.5 mg Aspirin (Aspirin) 81 mg [place] DAILY [facility] Atorvastatin Calcium (Lipitor) 20 mg PO HS [facility] Last Admin: 09/23/17 21:20 Dose: 20 mg Bisacodyl (Dulcolax) 10 mg PO DAILYPRN PRN PRN Reason: Constipation Digoxin (Lanoxin) 0.125 mg SLOW IVP DAILY [facility] Diltiazem HCl (Cardizem Cd) 180 mg PO DAILY [facility] Last Admin: 09/24/17 16:15 Dose: Not Given Diltiazem HCl (Cardizem) 10 mg SLOW IVP Q6HR [facility] Docusate Sodium (Colace) 100 mg PO BID [facility] Last Admin: 09/24/17 16:14 Dose: Not Given Famotidine (Pepcid) 20 mg PO BID [facility] Last Admin: 09/24/17 16:24 Dose: Not Given Guaifenesin/Dextromethorphan (Robitussin Dm) 15 ml PO Q4H PRN PRN Reason: Cough Hydralazine HCl (Apresoline) 5 mg SLOW IVP Q15MIN PRN PRN Reason: SBP Greater Than 170 Levothyroxine Sodium (Synthroid) 100 mcg PO 0600 [facility] Last Admin: 09/24/17 08:08 Dose: Not Given Losartan Potassium (Cozaar) 50 mg PO BID [facility] Last Admin: 09/24/17 16:13 Dose: 50 mg Magnesium Hydroxide (Milk Of Magnesium) 30 ml PO DAILYPRN PRN PRN Reason: Constipation Ondansetron HCl (Zofran Odt) 4 mg PO Q6H PRN PRN Reason: Nausea/Vomiting Last Admin: 09/23/17 17:55 Dose: 4 mg
[2017-09-24] MEDS: Atorvastatin Calcium 20 MG TAB PO SCH (20:05)
[2017-09-25] MEDS: Levothyroxine Sodium 100 MCG TAB PO SCH (05:31)
[2017-09-25] MEDS: Digoxin 0.5 MG/2 ML AMP SLOW IVP SCH (08:15)
[2017-09-25] MEDS: Aspirin 300 MG Suppository PR SCH (08:16)
[2017-09-25] MEDS: hydrALAZINE 20 MG/ML VIAL SLOW IVP PRN (08:18)
--- NOTE | 2017-09-25 09:43 | CON ---
DATE OF CONSULTATION: 09/25/2017 CONSULTING PHYSICIAN: Hospitalist group. REASON FOR CONSULTATION: IMCU placement. HISTORY OF PRESENT ILLNESS: Ms. Coleman is known to me from previous interaction in the office. She is 81 years old. She was hospitalized on 09/22/2017 with a sudden blindness and pain in her left ar m. She underwent embolectomy left subclavian, axillary artery area by Dr. Magana. Postop on 09/24/19 18 she was initially doing well, but yesterday she developed dysarthria and confusion and was subsequ ently moved to the Intermediate Care Unit. PAST MEDICAL HISTORY: 1. Severe COPD. 2. Atrial fibrillation. 3. Coronary artery disease. 4. Hypertension. 5. Hyperlipidemia. 6. Pulmonary hypertension. PAST SURGICAL HISTORY: Coronary bypass grafting surgery in 2001. MEDICATIONS PRIOR TO ADMISSION: Atorvastatin, Cardizem, Lasix, warfarin, moexipril, digoxin, Lasix, vitamin B12. I think she was also taking inhalers at home. ALLERGIES: METOPROLOL and SULFA. SOCIAL HISTORY: Quit smoking over 30 years ago. Does not consume alcohol. FAMILY MEDICAL HISTORY: Unremarkable. REVIEW OF SYSTEMS: Unobtainable secondary to her confusion. PHYSICAL EXAMINATION: VITAL SIGNS: Temperature 97.6, pulse 86, respirations 16, O2 sat 96% on room air. GENERAL: She is confused. She will moan,. but does not answer any questions for me coherently. HEENT: Pupils both react. Sclerae anicteric. Oropharynx dry. NECK: No JVD. LUNGS: Clear to auscultation without wheezing or rhonchi. CARDIOVASCULAR: S1, S2 regular, without murmur, rub or gallop. ABDOMEN: Soft and nontender. EXTREMITIES: No clubbing, cyanosis or edema. SKIN: Shows bruising over both arms. FINDINGS: White blood cell count 9, hematocrit 49, platelet count 179. Sodium 138, potassium 4.1, c hloride 106, CO2 24, BUN 13, creatinine 0.7, glucose 98. Brain CT demonstrated bilateral posterior distribution infarctions. MRI also showed acute bilateral occipital infarctions in the bilateral posterior cerebral artery territories. Chest x-ray at the femi e of admission reviewed personally by myself demonstrates cardiomegaly without effusion, mass or infi ltrate. ASSESSMENT: 1. Cerebrovascular infarction with profound neurologic deficit. 2. Underlying severe chronic obstructive pulmonary disease. 3. Status post embolectomy of the left brachial axillary region. RECOMMENDATIONS: The patient is currently receiving Eliquis for anticoagulation. She is also on asp irin. Her respiratory status seems stable. She is receiving nebulization treatments on a scheduled basis. I do not suspect that she is in acute respiratory failure. I think most of her mental status changes are due to her stroke. Thank you for the referral. I will be glad to follow with you.
[2017-09-25] MEDS: Docusate 100 MG CAP PO SCH ×2 (12:45→21:42)
[2017-09-25] MEDS: Apixaban 5 MG TAB PO SCH ×2 (12:45→21:43)
[2017-09-25] MEDS: Losartan 25 MG TAB PO SCH ×2 (12:46→21:42)
[2017-09-25] MEDS: Famotidine 20 MG TAB PO SCH ×2 (12:46→21:42)
[2017-09-25] MEDS: Acetaminophen 325 MG TAB PO PRN (17:01)
[2017-09-25] MEDS: Atorvastatin Calcium 20 MG TAB PO SCH (21:42)
[2017-09-26 04:19] LABS: Hemoglobin 16.7 g/dL (12.0-16.0); Platelet Count 218 thou/uL (130-400)
[2017-09-26] MEDS: Levothyroxine Sodium 100 MCG TAB PO SCH (06:31)
--- NOTE | 2017-09-26 08:25 | PDOC.PN ---
- Subjective Encounter Start Date: 09/25/17 Encounter Start Time: 16:00 - Objective Resuscitation Status: Resuscitation Status DNR:Do Not Resuscitate MAR Reviewed: Yes Vital Signs & Weight: Vital Signs (12 hours) Temp Pulse Resp BP Pulse Ox 09/26/17 04:18 97.4 F L 84 19 176/84 H 90 L 09/26/17 00:11 97.3 F L 92 19 158/95 H 97 09/25/17 22:13 86 18 Weight Admit Weight 111 lb 14.4 oz Weight 91 lb I&O: 09/25/17 09/26/17 09/27/17 06:59 06:59 06:59 Intake Total 71 154 Balance 71 154 Result Diagrams: 09/26/17 03:59 09/26/17 03:59 Phys Exam - Physical Examination HEENT: PERRLA Neck: no nodes, no JVD Respiratory: no rales, wheezing present Cardiovascular: RRR, no significant murmur Gastrointestinal: soft, non-tender Musculoskeletal: no edema, pulses present Lymphatic: no nodes Skin: no rash, normal turgor Dx/Plan (1) Acute left arterial ischemic stroke, ICA (internal carotid artery) Code(s): I63.232 - CEREB INFRC DUE TO UNSP OCCLS OR STENOS OF LEFT CAROTID ART Status: Acute Comment: Patient bilateral Cerebellar and Posterior Cerebral infaractions,. pt is seen by Neurology Dr. Sanders, pt is on Eliquis and Statins. (2) Acute encephalopathy Code(s): G93.40 - ENCEPHALOPATHY, UNSPECIFIED Status: Acute Comment: Patient is altered likely from Stroke.discussed with Daughter and son at bedside , explained patients disability and poor prognosis and family said, pt would not want to be resuscitated and would not want to be tube feed, so continue with speech recommedations with swalow precautions. (3) Acute on chronic respiratory failure with hypoxia Code(s): J96.21 - ACUTE AND CHRONIC RESPIRATORY FAILURE WITH HYPOXIA Status: Acute Comment: Will continue with Nebs, Duonebs and Albuteral nebs Romy Monitor her oxygenation as she is pulling off her oxygen. (4) Atrial fibrillation with RVR Code(s): I48.91 - UNSPECIFIED ATRIAL FIBRILLATION Status: Acute Comment: Pt is pulling off the Telemetry leads, So will give , Cardizem push scheduled q 6hrs to keep HR < 100, pt tKES 240MG cARDIZEM, HOME, (5) CAD (coronary artery disease) Code(s): I25.10 - ATHSCL HEART DISEASE OF [place] CORONARY ARTERY W/O ANG PCTRS Status: Chronic Qualifiers: Coronary Disease-Associated Artery/Lesion type: [place] artery [place] vs. transplanted heart: [place] heart Associated angina: without angina Qualified Code(s): I25.10 - Atherosclerotic heart disease of [place] coronary artery without angina pectoris (6) COPD (chronic obstructive pulmonary disease) Status: Chronic Qualifiers: COPD type: chronic bronchitis Chronic bronchitis type: simple Qualified Code(s): J41.0 - Simple chronic bronchitis Comment: mild flare but controlled with Prednisone 40mg daily, continue supportive measures (7) HTN (hypertension) Code(s): I10 - ESSENTIAL (PRIMARY) HYPERTENSION Status: Chronic Qualifiers: Hypertension type: essential hypertension Qualified Code(s): I10 - Essential (primary) hypertension Comment: Poorly controlled, Continue on Home meds, will do hydralazine 10mg q 6hr PRn > 150. (8) Dysphagia as late effect of stroke Code(s): I69.391 - DYSPHAGIA FOLLOWING CEREBRAL INFARCTION Status: Acute Comment: Will need to Discuss with Family about Tube feding/ peg tube placement. Speech Evalaution tomorrow., - Plan cont current plan of care, plan discussed w/ family, PT/OT, social media strategist, speech therapy, respiratory therapy, incentive spirometry, DVT proph w/lovenox * . - Discharge Day Encounter end time: 16:35 Review of Systems - Review of Systems Other: Unable to get ROS as pt is non verbal - Medications/Allergies Allergies/Adverse Reactions: Allergies Allergy/AdvReac Type Severity Reaction Status Date / Time metoprolol tartrate Allergy Verified 04/19/16 20:07 [From Lopressor] Sulfa (Sulfonamide Allergy Verified 04/19/16 20:07 Antibiotics) Medications: Current Medications Acetaminophen (Tylenol) 650 mg PO Q4H PRN PRN Reason: Headache/Fever or Pain Last Admin: 09/25/17 17:01 Dose: 650 mg Albuterol/Ipratropium (Duoneb) 3 ml NEB [id number] PRN PRN Reason: SOB &/or Wheezing Albuterol/Ipratropium (Duoneb) 3 ml EZPAP [id number] [facility] Last Admin: 09/26/17 07:01 Dose: Not Given Apixaban (Eliquis) 2.5 mg PO BID [facility] Last Admin: 09/25/17 21:43 Dose: 2.5 mg Aspirin (Aspirin) 81 mg ID DAILY [facility] Last Admin: 09/25/17 08:16 Dose: 81 mg Atorvastatin Calcium (Lipitor) 20 mg PO HS [facility] Last Admin: 09/25/17 21:42 Dose: 20 mg Bisacodyl (Dulcolax) 10 mg PO DAILYPRN PRN PRN Reason: Constipation Digoxin (Lanoxin) 0.125 mg SLOW IVP DAILY [facility] Last Admin: 09/25/17 08:15 Dose: 0.125 mg Diltiazem HCl (Cardizem Cd) 180 mg PO DAILY [facility] Last Admin: 09/25/17 12:45 Dose: Not Given Diltiazem HCl (Cardizem) 10 mg SLOW IVP Q6HR [facility] Last Admin: 09/26/17 06:31 Dose: 10 mg Docusate Sodium (Colace) 100 mg PO BID [facility] Last Admin: 09/25/17 21:42 Dose: 100 mg Famotidine (Pepcid) 20 mg PO BID [facility] Last Admin: 09/25/17 21:42 Dose: 20 mg Guaifenesin/Dextromethorphan (Robitussin Dm) 15 ml PO Q4H PRN PRN Reason: Cough Hydralazine HCl (Apresoline) 5 mg SLOW IVP Q15MIN PRN PRN Reason: SBP Greater Than 170 Last Admin: 09/25/17 08:18 Dose: 5 mg Levothyroxine Sodium (Synthroid) 100 mcg PO 0600 [facility] Last Admin: 09/26/17 06:31 Dose: Not Given Losartan Potassium (Cozaar) 50 mg PO BID [facility] Last Admin: 09/25/17 21:42 Dose: 50 mg Magnesium Hydroxide (Milk Of Magnesium) 30 ml PO DAILYPRN PRN PRN Reason: Constipation Ondansetron HCl (Zofran Odt) 4 mg PO Q6H PRN PRN Reason: Nausea/Vomiting Last Admin: 09/23/17 17:55 Dose: 4 mg
--- NOTE | 2017-09-26 09:13 | PRG ---
DATE OF SERVICE: 09/26/2017 The patient is able to talk some. She moves her left arm. She is neglecting her right side. PHYSICAL EXAMINATION: VITAL SIGNS: Temperature 98.6, pulse 96, respirations 18, O2 sats 94%, blood pressure 170/103, 24 ho ur intake not quantitated. Output not quantitated. HEENT: Unremarkable. NECK: No JVD. LUNGS: Clear. CARDIAC: S1 and S2 regular. ABDOMEN: Soft. EXTREMITIES: No edema. ASSESSMENT: 1. Posterior circulation stroke. 2. Profound neurologic deficit. 3. Chronic obstructive pulmonary disease. PLAN: The patient can be transferred to the floor for stroke rehab. No further respiratory recommen dations other than continue her nebulization treatments.
[2017-09-26] MEDS: Aspirin 300 MG Suppository PR SCH (10:09)
[2017-09-26] MEDS: Apixaban 5 MG TAB PO SCH ×2 (10:14→21:39)
[2017-09-26] MEDS: Losartan 25 MG TAB PO SCH ×2 (10:15→21:39)
[2017-09-26] MEDS: Digoxin 0.5 MG/2 ML AMP SLOW IVP SCH (10:16)
[2017-09-26] MEDS: Famotidine 20 MG TAB PO SCH ×2 (10:16→21:40)
[2017-09-26] MEDS: Docusate 100 MG CAP PO SCH ×2 (10:16→21:40)
[2017-09-26] MEDS: Atorvastatin Calcium 20 MG TAB PO SCH (21:40)
[2017-09-27] MEDS: Levothyroxine Sodium 100 MCG TAB PO SCH (05:20)
--- NOTE | 2017-09-27 08:35 | PDOC.PN ---
- Subjective Encounter Start Date: 09/26/17 Encounter Start Time: 08:00 Patient is seen todya awake but disoriented. [facility] - Objective Resuscitation Status: Resuscitation Status DNR:Do Not Resuscitate MAR Reviewed: Yes Vital Signs & Weight: Vital Signs (12 hours) Temp Pulse Resp BP Pulse Ox 09/27/17 07:28 98.5 F 97 18 172/100 H 95 09/27/17 07:11 94 L 09/27/17 07:08 80 16 94 L 09/27/17 03:14 97.5 F L 90 16 179/88 H 95 09/27/17 02:25 82 16 93 L 09/26/17 23:28 97.8 F 90 24 H 142/90 H 92 L 09/26/17 22:21 86 16 93 L Weight Admit Weight 111 lb 14.4 oz Weight 91 lb I&O: 09/26/17 09/27/17 09/28/17 06:59 06:59 06:59 Intake Total 154 1080 Output Total 250 Balance 154 830 Result Diagrams: 09/26/17 03:59 09/26/17 03:59 Radiology Reviewed by me: Yes Phys Exam - Physical Examination HEENT: PERRLA Neck: no nodes, no JVD Respiratory: wheezing present Cardiovascular: RRR, no significant murmur Gastrointestinal: soft, non-tender Musculoskeletal: pulses present, edema present Lymphatic: no nodes Dx/Plan (1) Acute left arterial ischemic stroke, ICA (internal carotid artery) Code(s): I63.232 - CEREB INFRC DUE TO UNSP OCCLS OR STENOS OF LEFT CAROTID ART Status: Acute Comment: Patient bilateral Cerebellar and Posterior Cerebral infaractions,. pt is seen by Neurology Dr. Sanders, pt is on Eliquis and Statins. No further intervention, Palliative care consulted for pain. (2) Acute encephalopathy Code(s): G93.40 - ENCEPHALOPATHY, UNSPECIFIED Status: Acute Comment: Patient is altered likely from Stroke.discussed with Daughter and son at bedside , explained patients disability and poor prognosis and family said, pt would not want to be resuscitated and would not want to be tube feed, so continue with speech recommedations with swalow precautions.[place]. (3) Acute on chronic respiratory failure with hypoxia Code(s): J96.21 - ACUTE AND CHRONIC RESPIRATORY FAILURE WITH HYPOXIA Status: Acute Comment: Will continue with Nebs, Duonebs and Albuteral nebs Romy Monitor her oxygenation as she is pulling off her oxygen.Improved. (4) Atrial fibrillation with RVR Code(s): I48.91 - UNSPECIFIED ATRIAL FIBRILLATION Status: Acute Comment: Pt is pulling off the Telemetry leads, So will give , Will change Cardizem IV to PO 30mg q 6hrs. (5) CAD (coronary artery disease) Code(s): I25.10 - ATHSCL HEART DISEASE OF [place] CORONARY ARTERY W/O ANG PCTRS Status: Chronic Qualifiers: Coronary Disease-Associated Artery/Lesion type: [place] artery [place] vs. transplanted heart: [place] heart Associated angina: without angina Qualified Code(s): I25.10 - Atherosclerotic heart disease of [place] coronary artery without angina pectoris (6) COPD (chronic obstructive pulmonary disease) Status: Chronic Qualifiers: COPD type: chronic bronchitis Chronic bronchitis type: simple Qualified Code(s): J41.0 - Simple chronic bronchitis Comment: mild flare but controlled with Prednisone 40mg daily, continue supportive measures (7) HTN (hypertension) Code(s): I10 - ESSENTIAL (PRIMARY) HYPERTENSION Status: Chronic Qualifiers: Hypertension type: essential hypertension Qualified Code(s): I10 - Essential (primary) hypertension Comment: Poorly controlled, Continue on Home meds, will do hydralazine 10mg q 6hr PRn > 150. (8) Dysphagia as late effect of stroke Code(s): I69.391 - DYSPHAGIA FOLLOWING CEREBRAL INFARCTION Status: Acute Comment: Will need to Discuss with Family about Tube feding/ peg tube placement. Speech Evalaution done, follow recommedations, - Plan cont current plan of care, PT/OT, delinquency prevention social worker, speech therapy, respiratory therapy, incentive spirometry, DVT proph w/lovenox * . - Discharge Day Encounter end time: 08:30 Review of Systems - Review of Systems Other: Unable to get ROS. - Medications/Allergies Allergies/Adverse Reactions: Allergies Allergy/AdvReac Type Severity Reaction Status Date / Time metoprolol tartrate Allergy Verified 04/19/16 20:07 [From Lopressor] Sulfa (Sulfonamide Allergy Verified 04/19/16 20:07 Antibiotics) Medications: Current Medications Acetaminophen (Tylenol) 650 mg PO Q4H PRN PRN Reason: Headache/Fever or Pain Last Admin: 09/25/17 17:01 Dose: 650 mg Albuterol/Ipratropium (Duoneb) 3 ml NEB [id number] PRN PRN Reason: SOB &/or Wheezing Albuterol/Ipratropium (Duoneb) 3 ml EZPAP [id number] [facility] Last Admin: 09/27/17 07:08 Dose: 3 ml Apixaban (Eliquis) 2.5 mg PO BID [facility] Last Admin: 09/26/17 21:39 Dose: 2.5 mg Aspirin (Aspirin) 81 mg [place] DAILY [facility] Last Admin: 09/26/17 10:09 Dose: 81 mg Atorvastatin Calcium (Lipitor) 20 mg PO HS [facility] Last Admin: 09/26/17 21:40 Dose: 20 mg Bisacodyl (Dulcolax) 10 mg PO DAILYPRN PRN PRN Reason: Constipation Digoxin (Lanoxin) 0.125 mg SLOW IVP DAILY [facility] Last Admin: 09/26/17 10:16 Dose: 0.125 mg Diltiazem HCl (Cardizem) 30 mg PO Q6HR [facility] Last Admin: 09/27/17 05:21 Dose: 30 mg Diltiazem HCl (Cardizem Cd) 240 mg PO DAILY [facility] Docusate Sodium (Colace) 100 mg PO BID [facility] Last Admin: 09/26/17 21:40 Dose: 100 mg Famotidine (Pepcid) 20 mg PO BID [facility] Last Admin: 09/26/17 21:40 Dose: 20 mg Guaifenesin/Dextromethorphan (Robitussin Dm) 15 ml PO Q4H PRN PRN Reason: Cough Hydralazine HCl (Apresoline) 5 mg SLOW IVP Q15MIN PRN PRN Reason: SBP Greater Than 170 Last Admin: 09/25/17 08:18 Dose: 5 mg Levothyroxine Sodium (Synthroid) 100 mcg PO 0600 [facility] Last Admin: 09/27/17 05:20 Dose: 100 mcg Losartan Potassium (Cozaar) 50 mg PO BID [facility] Last Admin: 09/26/17 21:39 Dose: 50 mg Magnesium Hydroxide (Milk Of Magnesium) 30 ml PO DAILYPRN PRN PRN Reason: Constipation Ondansetron HCl (Zofran Odt) 4 mg PO Q6H PRN PRN Reason: Nausea/Vomiting Last Admin: 09/23/17 17:55 Dose: 4 mg Ramipril (Altace) 5 mg PO BID [facility]
[2017-09-27] MEDS ORDERED: MOEXIPRIL HCL 15 MG PO SCH (09:00)
[2017-09-27] MEDS: Apixaban 5 MG TAB PO SCH ×3 (09:08→22:07)
[2017-09-27] MEDS: Famotidine 20 MG TAB PO SCH (09:12)
[2017-09-27] MEDS: Losartan 25 MG TAB PO SCH ×3 (09:13→22:08)
[2017-09-27] MEDS: Ramipril 5 MG CAP PO SCH ×3 (09:14→22:08)
[2017-09-27] MEDS: Digoxin 0.5 MG/2 ML AMP SLOW IVP SCH (09:22)
[2017-09-27] MEDS: Docusate 100 MG CAP PO SCH ×3 (09:22→22:08)
[2017-09-27] MEDS: Aspirin 300 MG Suppository PR SCH ×2 (09:28)
--- NOTE | 2017-09-27 14:43 | PDOC.PN ---
- Subjective Encounter Start Date: 09/27/17 Encounter Start Time: 13:30 Patient is seen today on floor, she is abkle to talk in sentences, showed good improvement, Able to Eat and Swallow pills. Discussed with Family at bedside, pt would benefit from aggressive PT/ OT, being evaluated by Rehab. - Objective Resuscitation Status: Resuscitation Status DNR:Do Not Resuscitate MAR Reviewed: Yes Vital Signs & Weight: Vital Signs (12 hours) Temp Pulse Pulse Pulse Resp BP BP 09/27/17 13:51 90 18 09/27/17 12:00 98.9 F 87 18 09/27/17 10:47 110 H 16 09/27/17 10:07 79 84 174/94 H 137/76 09/27/17 09:22 97 09/27/17 09:11 97 09/27/17 08:00 98.5 F 97 16 09/27/17 07:28 98.5 F 97 18 09/27/17 07:11 09/27/17 07:08 80 16 09/27/17 03:14 97.5 F L 90 16 BP Pulse Ox 09/27/17 13:51 09/27/17 12:00 167/93 H 95 09/27/17 10:47 09/27/17 10:07 09/27/17 09:22 09/27/17 09:11 09/27/17 08:00 09/27/17 07:28 172/100 H 95 09/27/17 07:11 94 L 09/27/17 07:08 94 L 09/27/17 03:14 179/88 H 95 Weight Admit Weight 111 lb 14.4 oz Weight 91 lb I&O: 09/26/17 09/27/17 09/28/17 06:59 06:59 06:59 Intake Total 154 1080 Output Total 250 Balance 154 830 Result Diagrams: 09/26/17 03:59 09/26/17 03:59 Radiology Reviewed by me: Yes Phys Exam - Physical Examination HEENT: PERRLA, moist MMs Neck: no nodes, no JVD Respiratory: no wheezing, no rales Cardiovascular: RRR, no significant murmur Gastrointestinal: soft, non-tender Musculoskeletal: no edema, pulses present Right upper Extremity Weakness and contractures. Psychiatric: normal affect, A&O x 3 Dx/Plan (1) Acute left arterial ischemic stroke, ICA (internal carotid artery) Code(s): I63.232 - CEREB INFRC DUE TO UNSP OCCLS OR STENOS OF LEFT CAROTID ART Status: Acute Comment: Patient bilateral Cerebellar and Posterior Cerebral infaractions,. pt is on Eliquis and Statins. Pt is referred to Rehab therapy. (2) Acute encephalopathy Code(s): G93.40 - ENCEPHALOPATHY, UNSPECIFIED Status: Acute Comment: Patient is altered likely from Stroke.discussed with Daughter and son at bedside , explained patients disability and poor prognosis and family said, pt would not want to be resuscitated and would not want to be tube feed, so continue with speech recommedations with swalow precautions.Stbale. (3) Acute on chronic respiratory failure with hypoxia Code(s): J96.21 - ACUTE AND CHRONIC RESPIRATORY FAILURE WITH HYPOXIA Status: Acute Comment: Resolved, pt is Not on oxygen now. (4) Atrial fibrillation with RVR Code(s): I48.91 - UNSPECIFIED ATRIAL FIBRILLATION Status: Acute Comment: Pt seen by [facility], increased her Cardizem to 240mg po daily. (5) CAD (coronary artery disease) Code(s): I25.10 - ATHSCL HEART DISEASE OF [place] CORONARY ARTERY W/O ANG PCTRS Status: Chronic Qualifiers: Coronary Disease-Associated Artery/Lesion type: [place] artery [place] vs. transplanted heart: [place] heart Associated angina: without angina Qualified Code(s): I25.10 - Atherosclerotic heart disease of [place] coronary artery without angina pectoris Comment: Stbale. No chest pain. (6) COPD (chronic obstructive pulmonary disease) Status: Chronic Qualifiers: COPD type: chronic bronchitis Chronic bronchitis type: simple Qualified Code(s): J41.0 - Simple chronic bronchitis Comment: mild flare but controlled with Prednisone 40mg daily, continue supportive measures (7) HTN (hypertension) Code(s): I10 - ESSENTIAL (PRIMARY) HYPERTENSION Status: Chronic Qualifiers: Hypertension type: essential hypertension Qualified Code(s): I10 - Essential (primary) hypertension Comment: Poorly controlled, Continue on Home meds, will do hydralazine 10mg q 6hr PRn > 150. (8) Dysphagia as late effect of stroke Code(s): I69.391 - DYSPHAGIA FOLLOWING CEREBRAL INFARCTION Status: Acute Comment: Speech Evalaution done, follow recommedations, - Plan cont current plan of care, plan discussed w/ family, PT/OT, incentive spirometry , out of bed/ambulate, DVT proph w/lovenox, DVT proph w/SCDs * . - Discharge Day Encounter end time: 14:10 Review of Systems - Review of Systems Constitutional: negative: fever, chills, sweats, weakness, malaise, other Eyes: negative: Pain, Vision Change, Conjunctivae Inflammation, Eyelid Inflammation, Redness, Other ENT: negative: Ear Pain, Ear Discharge, Nose Pain, Nose Discharge, Nose Congestion, Mouth Pain, Mouth Swelling, Throat Pain, Throat Swelling, Other Respiratory: negative: Cough, Dry, Shortness of Breath, Hemoptysis, SOB with Excertion, Pleuritic Pain, Sputum, Wheezing Cardiovascular: negative: chest pain, palpitations, orthopnea, paroxysmal nocturnal dyspnea, edema, light headedness, other Gastrointestinal: negative: Nausea, Vomiting, Abdominal Pain, Diarrhea, Constipation, Melena, Hematochezia, Other Musculoskeletal: negative: Neck Pain, Shoulder Pain, Arm Pain, Back Pain, Hand Pain, Leg Pain, Foot Pain, Other Skin: negative: Rash, Lesions, [place], Bruising, Other - Medications/Allergies Allergies/Adverse Reactions: Allergies Allergy/AdvReac Type Severity Reaction Status Date / Time metoprolol tartrate Allergy Verified 04/19/16 20:07 [From Lopressor] Sulfa (Sulfonamide Allergy Verified 04/19/16 20:07 Antibiotics) Medications: Current Medications Acetaminophen (Tylenol) 650 mg PO Q4H PRN PRN Reason: Headache/Fever or Pain Last Admin: 09/25/17 17:01 Dose: 650 mg Albuterol/Ipratropium (Duoneb) 3 ml NEB [id number] PRN PRN Reason: SOB &/or Wheezing Albuterol/Ipratropium (Duoneb) 3 ml [id number] [facility] Last Admin: 09/27/17 13:51 Dose: 3 ml Apixaban (Eliquis) 2.5 mg PO BID [facility] Last Admin: 09/27/17 09:08 Dose: 2.5 mg Aspirin (Aspirin) 75 mg MD DAILY [facility] Last Admin: 09/27/17 09:28 Dose: 75 mg Atorvastatin Calcium (Lipitor) 20 mg PO HS [facility] Last Admin: 03/07/18 21:40 Dose: 20 mg Bisacodyl (Dulcolax) 10 mg PO DAILYPRN PRN PRN Reason: Constipation Digoxin (Lanoxin) 0.125 mg SLOW IVP DAILY [facility] Last Admin: 09/27/17 09:22 Dose: 0.125 mg Diltiazem HCl (Cardizem Cd) 240 mg PO DAILY [facility] Last Admin: 09/27/17 09:11 Dose: 240 mg Docusate Sodium (Colace) 100 mg PO BID [facility] Last Admin: 09/27/17 09:22 Dose: Not Given Famotidine (Pepcid) 20 mg PO BID [facility] Last Admin: 09/27/17 09:12 Dose: 20 mg Guaifenesin/Dextromethorphan (Robitussin Dm) 15 ml PO Q4H PRN PRN Reason: Cough Hydralazine HCl (Apresoline) 5 mg SLOW IVP Q15MIN PRN PRN Reason: SBP Greater Than 170 Last Admin: 09/25/17 08:18 Dose: 5 mg Levothyroxine Sodium (Synthroid) 100 mcg PO 0600 [facility] Last Admin: 09/27/17 05:20 Dose: 100 mcg Losartan Potassium (Cozaar) 50 mg PO BID [facility] Last Admin: 09/27/17 09:13 Dose: 50 mg Magnesium Hydroxide (Milk Of Magnesium) 30 ml PO DAILYPRN PRN PRN Reason: Constipation Ondansetron HCl (Zofran Odt) 4 mg PO Q6H PRN PRN Reason: Nausea/Vomiting Last Admin: 09/23/17 17:55 Dose: 4 mg Ramipril (Altace) 5 mg PO BID [facility] Last Admin: 09/27/17 09:14 Dose: 5 mg
[2017-09-27] MEDS: Acetaminophen 325 MG TAB PO PRN (15:39)
--- NOTE | 2017-09-27 17:26 | EKG ---
Test Reason : Blood Pressure : / mmHG Vent. Rate : 108 BPM Atrial Rate : 111 BPM P-R Int : 000 ms QRS Dur : 096 ms QT Int : 304 ms P-R-T Axes : 000 -26 216 degrees QTc Int : 407 ms Atrial fibrillation with rapid ventricular response Abnormal ECG When compared with ECG of 22-SEP-2017 19:44, (Unconfirmed) ST no longer depressed in Anterior leads T wave inversion less evident in Anterior leads Confirmed by DR. Marycruz PRESSLEY ([id number]) on 09/27/2017 5:26:40 PM Referred By: JOSETTE Confirmed By:DR. Marycruz PRESSLEY
[2017-09-27] MEDS: Atorvastatin Calcium 20 MG TAB PO SCH ×2 (20:58→22:07)
[2017-09-27] MEDS ORDERED: Ziprasidone 20 MG VIAL IM PRN (22:04)
[2017-09-27] MEDS ORDERED: Sterile Water 10 ML VIAL FS PRN (22:14)
[2017-09-28] MEDS: Levothyroxine Sodium 100 MCG TAB PO SCH (06:01)
[2017-09-28] MEDS ORDERED: Famotidine 20 MG TAB PO SCH (09:00)
[2017-09-28] MEDS: Docusate 100 MG CAP PO SCH (09:00)
[2017-09-28] MEDS: hydrALAZINE 20 MG/ML VIAL SLOW IVP PRN ×2 (09:03→17:35)
[2017-09-28] MEDS: Apixaban 5 MG TAB PO SCH (09:05)
[2017-09-28] MEDS: Losartan 25 MG TAB PO SCH (09:06)
[2017-09-28] MEDS: Ramipril 5 MG CAP PO SCH (09:07)
[2017-09-28 09:15] VITALS: BMI 14.2
[2017-09-28] MEDS: Digoxin 0.5 MG/2 ML AMP SLOW IVP SCH (12:04)
[2017-09-28] MEDS: Aspirin 300 MG Suppository PR SCH (12:43)
--- NOTE | 2017-09-28 16:04 | PDOC.PN ---
- Subjective Encounter Start Date: 09/28/17 Encounter Start Time: 07:30 Patient is seen today, Drowsy and lethargic. No concern noted. - Objective Resuscitation Status: Resuscitation Status DNR:Do Not Resuscitate MAR Reviewed: Yes Vital Signs & Weight: Vital Signs (12 hours) Temp Pulse Pulse Pulse Resp BP BP 09/28/17 15:00 93 16 09/28/17 13:39 90 99 172/76 H 143/81 H 09/28/17 12:50 09/28/17 12:04 102 H 09/28/17 11:57 98.0 F 102 H 14 09/28/17 10:24 91 16 09/28/17 09:03 88 09/28/17 08:54 88 09/28/17 08:00 97.6 F 91 16 09/28/17 06:49 88 14 09/28/17 06:16 97.9 F 76 16 BP Pulse Ox 09/28/17 15:00 92 L 09/28/17 13:39 09/28/17 12:50 177/65 H 09/28/17 12:04 09/28/17 11:57 177/88 H 100 09/28/17 10:24 92 L 09/28/17 09:03 09/28/17 08:54 206/106 H 09/28/17 08:00 173/79 H 93 L 09/28/17 06:49 95 09/28/17 06:16 141/78 H 96 Weight Admit Weight 111 lb 14.4 oz Weight 91 lb I&O: 09/27/17 09/28/17 09/29/17 06:59 06:59 06:59 Intake Total 1080 10 Output Total 250 Balance 830 10 Result Diagrams: 09/26/17 03:59 09/26/17 03:59 Radiology Reviewed by me: Yes Phys Exam - Physical Examination HEENT: PERRLA, moist MMs Neck: no nodes, no JVD Respiratory: no wheezing, no rales Cardiovascular: RRR, no significant murmur Gastrointestinal: soft Musculoskeletal: no edema, pulses present Lymphatic: no nodes Psychiatric: normal affect Skin: no rash, normal turgor Dx/Plan (1) Acute left arterial ischemic stroke, ICA (internal carotid artery) Code(s): I63.232 - CEREB INFRC DUE TO UNSP OCCLS OR STENOS OF LEFT CAROTID ART Status: Acute Comment: Patient bilateral Cerebellar and Posterior Cerebral infaractions,. pt is on Eliquis and Statins. Pt is referred to Rehab therapy. (2) Acute encephalopathy Code(s): G93.40 - ENCEPHALOPATHY, UNSPECIFIED Status: Acute Comment: Patient is altered likely from Stroke.discussed with Daughter and son at bedside , explained patients disability and poor prognosis and family said, pt would not want to be resuscitated and would not want to be tube feed, so continue with speech recommedations with swalow precautions.Stbale. (3) Acute on chronic respiratory failure with hypoxia Code(s): J96.21 - ACUTE AND CHRONIC RESPIRATORY FAILURE WITH HYPOXIA Status: Acute Comment: Resolved, pt is Not on oxygen now. (4) Atrial fibrillation with RVR Code(s): I48.91 - UNSPECIFIED ATRIAL FIBRILLATION Status: Acute Comment: Pt seen by [facility], increased her Cardizem to 240mg po daily. (5) CAD (coronary artery disease) Code(s): I25.10 - ATHSCL HEART DISEASE OF [place] CORONARY ARTERY W/O ANG PCTRS Status: Chronic Qualifiers: Coronary Disease-Associated Artery/Lesion type: [place] artery [place] vs. transplanted heart: [place] heart Associated angina: without angina Qualified Code(s): I25.10 - Atherosclerotic heart disease of [place] coronary artery without angina pectoris Comment: Stbale. No chest pain. (6) COPD (chronic obstructive pulmonary disease) Status: Chronic Qualifiers: COPD type: chronic bronchitis Chronic bronchitis type: simple Qualified Code(s): J41.0 - Simple chronic bronchitis Comment: mild flare but controlled with Prednisone 40mg daily, continue supportive measures (7) HTN (hypertension) Code(s): I10 - ESSENTIAL (PRIMARY) HYPERTENSION Status: Chronic Qualifiers: Hypertension type: essential hypertension Qualified Code(s): I10 - Essential (primary) hypertension Comment: Poorly controlled, Continue on Home meds, will do hydralazine 10mg q 6hr PRn > 150. (8) Dysphagia as late effect of stroke Code(s): I69.391 - DYSPHAGIA FOLLOWING CEREBRAL INFARCTION Status: Acute Comment: Speech Evalaution done, follow recommedations, - Plan cont current plan of care, PT/OT, social sciences research scientist, speech therapy, DVT proph w/ lovenox Will sign off, plan to dischagre to Rehab * . - Discharge Day Encounter end time: 08:00
[2017-09-28 16:11] VITALS: TEMP 98.6
[2017-09-28 17:42] VITALS: BP 153/75
--- NOTE | 2017-09-28 20:17 | DIS ---
HOSPITAL COURSE: The patient presented with an acute embolus to her left brachial artery as well as bilateral blindness. She was taken to the operating room, where she underwent embolectomy of her lef t brachial artery. She was also noted on preoperative CT scanning to have a left common carotid sherin ry occlusion. Postoperatively, she did well for the initial 24 hours, then had an episode of express norman aphasia and right arm weakness that resolved after about an hour. She was on Eliquis and after t ransitioning from [facility] when this episode occurred. She did have chronic atrial fibrillation on [place], prior to admission, but her INR was normal, so it elected to switch her to Eliquis. She then had another episode about 24 hours later of expressive aphasia and right arm weakness and this did n ot improve. She will be discharged to rehab at this time on Eliquis 2.5 b.i.d., aspirin 81 a day, Ca rdizem-CD is 240 a day, Altace 5 mg b.i.d., digoxin 0.125 mg p.o. daily and pravastatin 20 a day. At the time of discharge, she is able to occasionally put several words together and answering the ques tion; however, her right arm does not move at all and she has right-sided neglect. Her left leg and arm are fine. Her right leg has mild weakness.
[2017-09-29] MEDS ORDERED: Digoxin 0.125 MG TAB PO SCH (09:00)
== END 2017-09-28 17:50 | DRG 252 ==
LOC: ERS 05:39 → 2SE 08:23 → SDC 08:23 → 2SE 10:07 → IMCU/EMU 09-24 19:33 → 2SE 09-26 18:41
PROVIDERS: ADMIT Thoracic Surgery (Cardiothoracic Vascular Surgery); ATTEND Thoracic Surgery (Cardiothoracic Vascular Surgery)
PROC: 03C80ZZ Extirpation of Matter from Left Brachial Artery, Open Approach (ICD-10-PCS; principal; 2017-09-22)
DX: I74.2 Embolism and thrombosis of arteries of the upper extremities (principal); I63.432 Cerebral infarction due to embolism of left posterior cerebral artery; J96.21 Acute and chronic respiratory failure with hypoxia; I63.232 Cerebral infarction due to unspecified occlusion or stenosis of left carotid arteries; G93.40 Encephalopathy, unspecified; G81.91 Hemiplegia, unspecified affecting right dominant side; H53.123 Transient visual loss, bilateral; I27.20 Pulmonary hypertension, unspecified; I48.2 Chronic atrial fibrillation; Z99.81 Dependence on supplemental oxygen; Z87.891 Personal history of nicotine dependence; I25.10 Atherosclerotic heart disease of native coronary artery without angina pectoris; I10 Essential (primary) hypertension; E78.5 Hyperlipidemia, unspecified; Z95.1 Presence of aortocoronary bypass graft; Z79.01 Long term (current) use of anticoagulants; Z88.2 Allergy status to sulfonamides; Z88.8 Allergy status to other drugs, medicaments and biological substances; R29.810 Facial weakness; R47.81 Slurred speech; J41.0 Simple chronic bronchitis; I69.391 Dysphagia following cerebral infarction; I44.7 Left bundle-branch block, unspecified
CPT/HCPCS: 36415; 36416; 70450; 70496; 70498; 70551; 71045; 71275; 80048; 80053; 80061; 81003; 81015; 82550; 82553; 82565; 83880; 84484; 84703; 85014; 85018; 85025; 85049; 85610; 85730; 93005; 93010; 94640; 96374; 96375; 96376; G8978-GP-CJ; G8978-GP-CL; G8979-GP-CI; G8979-GP-CJ; G8987-GO-CM; G8988-GO-CL; G8996-GN-CH; G8996-GN-CM; G8997-GN-CH; G8997-GN-CL; J0360; J1160; J1644; J1650; J2001; J2060; J2270; J2405; J2704; J2720; J3010; J3486; J7620; Q0162

== ENCOUNTER 2017-10-22 15:43 | Inpatient (IN) | payer MEDICARE ==
[2017-10-22 17:00] LABS: Bilirubin Negative (Negative); Blood, Urine Negative (Negative); Clarity CLEAR (Clear); Glucose, Urine (Dipstick) Negative (Negative); Leukocyte Negative (Negative); Nitrite Negative (Negative); Protein, Urine (Dipstick) Negative (Neg-Trace); Specific Gravity, Urine 1.024 (1.002-1.036); Urobilinogen 0.2 mg/dL (0.2-1.0); pH, Urine 5.5 (5.0-9.0)
--- NOTE | 2017-10-22 17:38 | CT ---
BRAIN CT WITHOUT IV CONTRAST: HISTORY: An 81-year-old female with a history of loss of memory, agitation, and recent CVA. COMPARISON: 09/24/2017 FINDINGS: There is severe bilateral atrophy and chronic white matter ischemic change. There are old areas of e ncephalomalacia bilaterally, primarily in the occipital lobes, consistent with old infarcts. There i s a new area of heterogeneous abnormal decreased attenuation in the left posterior parietal lobe, woody dence for an evolving infarct, which has developed from 09/24/2017 study. No focal mass or midline s hift. No intraaxial or extraaxial hemorrhage. IMPRESSION: Evolving infarct in the left posterior parietal region, new from 09/24/2017. Atrophy and chronic whi te matter ischemic changes and old chronic infarct changes. No mass or bleed. POS: MAYA
[2017-10-22 18:19] LABS: #Eosinphils 0.2 thou/uL (0.0-0.7); #Lymphocytes 1.7 thou/uL (1.20-3.40); #Monocytes 0.5 thou/uL (0.11-0.59); %Basophils 0.8 % (0.0-1.0); %Eosinophils 3.2 % (0.0-10.0); %Monocytes 7.1 % (0.0-10.0); %Neutrophils 62.9 % (42.0-75.0); Hemoglobin 15.1 g/dL (12.0-16.0); Mean Corpuscular HGB CONC 33.1 g/dL (32.0-36.0); Mean Corpuscular Hemoglobin 33.2 pg (27.0-31.0); Mean Platelet Volume 8.4 fL (7.4-10.4); Platelet Count 175 thou/uL (130-400); RBC Distribution Width 12.2 % (11.5-14.5); Red Blood Cell (RBC) Count 4.54 mill/uL (4.20-5.40); White Blood Cell (WBC) Count 6.4 thou/uL (4.8-10.8)
[2017-10-22 18:23] LABS: INR-International Normal Ratio 1.2; PTT 32.4 SEC (22.9-36.1); Prothrombin Time 15.6 SEC (12.0-14.7)
[2017-10-22 18:36] LABS: Anion Gap 10 mmol/L (10-20); BUN (Urea Nitrogen) 12 mg/dL (9.8-20.1); Calc. Creatinine Clearance 0 mL/min (70-130); Calcium 9.5 mg/dL (7.8-10.44); Carbon Dioxide 25 mmol/L (23-31); Chloride 106 mmol/L (98-107); Estimated GFR-MDRD 72; Glucose 77 mg/dL (83-110); Potassium 3.7 mmol/L (3.5-5.1); Sodium 137 mmol/L (136-145)
[2017-10-22 18:44] LABS: CKMB 1.4 ng/mL (0-6.6); Troponin I 0.012 ng/mL (< 0.028)
[2017-10-22 21:05] VITALS: BMI 18.8
[2017-10-22] MEDS ORDERED: Ondansetron HCl/PF 4 MG/2 ML Vial IVP PRN (21:18)
[2017-10-22] MEDS ORDERED: Acetaminophen 325 MG TAB PO PRN (21:18)
[2017-10-22] MEDS ORDERED: Ondansetron ODT 4 MG TAB SL PRN (21:18)
[2017-10-22 21:51] LABS: Troponin I Less than 0.010 ng/mL (< 0.028)
[2017-10-23 00:48] LABS: Troponin I Less than 0.010 ng/mL (< 0.028)
[2017-10-23] MEDS ORDERED: HYDROcodone/Acetaminophen 5/325 mg Tablet PO PRN (01:21)
[2017-10-23] MEDS ORDERED: Ondansetron ODT 4 MG TAB PO PRN (01:21)
[2017-10-23] MEDS ORDERED: hydrALAZINE 20 MG/ML VIAL SLOW IVP PRN (01:21)
[2017-10-23] MEDS ORDERED: Sodium Chloride 0.9% 1,000 ML IV SCH (01:21)
[2017-10-23] MEDS ORDERED: Ziprasidone 20 MG VIAL IM PRN (01:21)
[2017-10-23] MEDS ORDERED: Acetaminophen 325 MG TAB PO PRN (01:21)
[2017-10-23] MEDS ORDERED: Ondansetron HCl/PF 4 MG/2 ML Vial IVP PRN (01:21)
[2017-10-23] MEDS: Levothyroxine Sodium 100 MCG TAB PO SCH (05:00)
[2017-10-23 05:54] LABS: Anion Gap 9 mmol/L (10-20); BUN (Urea Nitrogen) 11 mg/dL (9.8-20.1); Calc. Creatinine Clearance 51 mL/min (70-130); Calcium 9.1 mg/dL (7.8-10.44); Carbon Dioxide 25 mmol/L (23-31); Chloride 109 mmol/L (98-107); Estimated GFR-MDRD 80; Glucose 73 mg/dL (83-110); Potassium 3.6 mmol/L (3.5-5.1); Sodium 139 mmol/L (136-145)
[2017-10-23 06:05] LABS: Hemoglobin 14.4 g/dL (12.0-16.0); Mean Corpuscular HGB CONC 33.9 g/dL (32.0-36.0); Mean Corpuscular Hemoglobin 33.3 pg (27.0-31.0); Mean Corpuscular Volume 98.1 fl (81.0-99.0); Mean Platelet Volume 8.3 fL (7.4-10.4); Platelet Count 173 thou/uL (130-400); RBC Distribution Width 12.3 % (11.5-14.5); Red Blood Cell (RBC) Count 4.32 mill/uL (4.20-5.40); White Blood Cell (WBC) Count 6.7 thou/uL (4.8-10.8)
[2017-10-23 06:06] LABS: Band 10 % (5-11); Eosinophils 2 % (0-10); Lymphocytes 30 % (21-51); MDiff Complete? YES; Monocytes 4 % (0-10); Neutrophil 54 % (42-75)
[2017-10-23] MEDS: Digoxin 0.125 MG TAB PO SCH (08:58)
[2017-10-23] MEDS: Ramipril 5 MG CAP PO SCH ×2 (09:00→22:36)
[2017-10-23] MEDS: Losartan 25 MG TAB PO SCH ×2 (09:00→22:35)
[2017-10-23] MEDS ORDERED: Apixaban 2.5 MG TAB PO SCH (09:00)
[2017-10-23] MEDS: Docusate 100 MG CAP PO SCH ×2 (09:01→22:35)
--- NOTE | 2017-10-23 11:00 | PDOC.PN ---
- Subjective Encounter Start Date: 10/23/17 Encounter Start Time: 11:13 Subjective: No new complaints -: No acute events overnight. - Objective Resuscitation Status: Resuscitation Status DNR:Do Not Resuscitate MAR Reviewed: Yes Vital Signs & Weight: Vital Signs (12 hours) Temp Pulse Resp BP BP Pulse Ox 10/23/17 10:27 83 16 96 10/23/17 09:00 72 154/110 H 10/23/17 08:58 66 10/23/17 08:00 98.2 F 72 20 154/110 H 93 L 10/23/17 06:48 78 16 100 10/23/17 01:21 97.9 F 94 16 149/95 H 98 10/23/17 00:10 98.4 F 73 16 149/89 H 95 10/23/17 00:00 98.4 F 73 16 98 Weight Admit Weight 117 lb Weight 117 lb I&O: 10/22/17 10/23/17 10/24/17 06:59 06:59 06:59 Output Total 1 Balance -1 Result Diagrams: 10/23/17 04:36 10/23/17 04:36 Phys Exam - Physical Examination Constitutional: NAD HEENT: moist MMs, sclera anicteric Neck: supple, full ROM Respiratory: no wheezing, no rales, no rhonchi, clear to auscultation bilateral Cardiovascular: RRR, no significant murmur, no rub Gastrointestinal: soft, non-tender, no distention, positive bowel sounds Musculoskeletal: no edema, pulses present Neurological: non-focal Skin: no rash, normal turgor Dx/Plan (1) CVA (cerebral vascular accident) Code(s): I63.9 - CEREBRAL INFARCTION, UNSPECIFIED Status: Acute Qualifiers: CVA mechanism: unspecified Qualified Code(s): I63.9 - Cerebral infarction, unspecified Comment: New vs old. Evolving, seen in L posterior parietal region. On statins, ASA, Eliquis. Neurology consult in place. (2) A-fib Code(s): I48.91 - UNSPECIFIED ATRIAL FIBRILLATION Status: Acute Qualifiers: Atrial fibrillation type: paroxysmal Qualified Code(s): I48.0 - Paroxysmal atrial fibrillation Comment: Rate controlled. Continue dogoxin, diltiazem, Eliquis and ASA. (3) Chronic respiratory failure with hypoxia Code(s): J96.11 - CHRONIC RESPIRATORY FAILURE WITH HYPOXIA Status: Chronic Comment: Stable. (4) CAD (coronary artery disease) Code(s): I25.10 - ATHSCL HEART DISEASE OF [place] CORONARY ARTERY W/O ANG PCTRS Status: Chronic Qualifiers: Coronary Disease-Associated Artery/Lesion type: bypass graft [place] vs. transplanted heart: [place] heart Associated angina: without angina Qualified Code(s): I25.810 - Atherosclerosis of coronary artery bypass graft(s) without angina pectoris Comment: Stable, chest pain free. Continue home meds. (5) COPD (chronic obstructive pulmonary disease) Status: Chronic Qualifiers: COPD type: unspecified COPD Qualified Code(s): J44.9 - Chronic obstructive pulmonary disease, unspecified Comment: Stable. Not in acute exacerbartion. Continue nebs. (6) HLD (hyperlipidemia) Code(s): E78.5 - HYPERLIPIDEMIA, UNSPECIFIED Status: Chronic Qualifiers: Hyperlipidemia type: pure hypercholesterolemia Qualified Code(s): E78.00 - Pure hypercholesterolemia, unspecified; E78.0 - Pure hypercholesterolemia Comment: Continue Statins. (7) HTN (hypertension) Code(s): I10 - ESSENTIAL (PRIMARY) HYPERTENSION Status: Chronic Qualifiers: Hypertension type: essential hypertension Comment: Fair control but not at goal. Continue current meds. (8) Hypothyroidism Code(s): E03.9 - HYPOTHYROIDISM, UNSPECIFIED Status: Chronic Qualifiers: Hypothyroidism type: unspecified Qualified Code(s): E03.9 - Hypothyroidism , unspecified Comment: Last TSh 08/09 was 0.79. Will recheck and continue levothyroxine. (9) Chronic anticoagulation Code(s): Z79.01 - SENIOR CARE (CURRENT) USE OF ANTICOAGULANTS Status: Chronic Comment: On ASA and Eliquis - Plan cont current plan of care, plan discussed w/ family, PT/OT, social work lecturer, speech therapy * . Review of Systems - Medications/Allergies Allergies/Adverse Reactions: Allergies Allergy/AdvReac Type Severity Reaction Status Date / Time metoprolol tartrate Allergy Verified 04/19/16 20:07 [From Lopressor] Sulfa (Sulfonamide Allergy Verified 04/19/16 20:07 Antibiotics) Medications: Current Medications Acetaminophen (Tylenol) 650 mg PO Q4H PRN PRN Reason: Headache/Fever or Pain Hydrocodone Bitart/Acetaminophen ([place] 5/325) 1 tab PO Q4H PRN PRN Reason: Moderate Pain (4-6) Albuterol/Ipratropium (Duoneb) 3 ml NEB QID-RT [facility] Last Admin: 10/23/17 10:27 Dose: 3 ml Amlodipine Besylate (Norvasc) 5 mg PO HS [facility] Apixaban (Eliquis) 2.5 mg PO BID [facility] Last Admin: 10/23/17 09:00 Dose: 2.5 mg Aspirin (Aspirin Chewable) 81 mg PO DAILY [facility] Last Admin: 10/23/17 09:00 Dose: 81 mg Atorvastatin Calcium (Lipitor) 20 mg PO HS [facility] Digoxin (Lanoxin) 0.125 mg PO DAILY [facility] Last Admin: 10/23/17 08:58 Dose: 0.125 mg Diltiazem HCl (Cardizem Cd) 240 mg PO DAILY [facility] Last Admin: 10/23/17 09:00 Dose: 240 mg Docusate Sodium (Colace) 100 mg PO BID [facility] Last Admin: 10/23/17 09:01 Dose: 100 mg Hydralazine HCl (Apresoline) 10 mg SLOW IVP Q4H PRN PRN Reason: SBP > 180 Sodium Chloride (Normal Saline 0.9%) 1,000 mls @ 70 mls/hr IV .[id number] [facility] Last Admin: 10/23/17 05:00 Dose: 1,000 mls Levothyroxine Sodium (Synthroid) 100 mcg PO 0600 [facility] Last Admin: 10/23/17 05:00 Dose: 100 mcg Losartan Potassium (Cozaar) 50 mg PO BID [facility] Last Admin: 10/23/17 09:00 Dose: 50 mg Melatonin (Melatonin) 6 mg PO HS [facility] Ondansetron HCl (Zofran Odt) 4 mg PO Q6H PRN PRN Reason: Nausea/Vomiting Ondansetron HCl (Zofran) 4 mg IVP Q6H PRN PRN Reason: Nausea/Vomiting Ramipril (Altace) 5 mg PO BID [facility] Last Admin: 10/23/17 09:00 Dose: 5 mg Trazodone HCl (Desyrel) 100 mg PO HS [facility] Ziprasidone (Geodon) 10 mg IM Q8H PRN PRN Reason: Agitation
--- NOTE | 2017-10-23 12:08 | HP ---
DATE OF ADMISSION: 10/22/2017 TIME OF SERVICE: 2330 hours. PRIMARY CARE PHYSICIAN: Dr. Sunita Lind. CHIEF COMPLAINT: Agitation. HISTORY OF PRESENT ILLNESS: Ms. Coleman is an 81-year-old white female, who was admitted here from 09/22/2017 to 09/28/2017 for bilateral occipital infarcts and acute blindness. She went to the operating room on 09/22/2017 for embolectomy of her left brachial artery and on the next day on 09/23/2017 developed expressive aphasia, right arm weakness, that resolved. This occurred again on 09/24/2017 and by the time of discharge on 09/28/2017, the patient had some expressive aphasia, but no other defects motor campos according to the notes. She was originally discontinued to [facility] for rehabilitation and since been transferred to [facility] for continued care. For a short time at [facility] and then while at [facility] in the late morning around 11:00 a.m., she has become combative with the staff and to the point of fighting back and scratching them. She was sent to the emergency department for being combative. There is some reported 3 to 4+ lower extremity edema. Imaging was done that showed a posterior parietal infarct and then we were subsequently asked to admit. Per the other reports, the patient had been occasionally refusing medications at both facilities. In the emergency department, CT scan was done with the above findings, her cardiac biomarkers were unremarkable and chemistries were normal. On my evaluation, the patient is sleeping soundly. She is able to wake up and is alert. She does have dysarthria, but answers some questions appropriately although she does not answer. She is able to follow commands and move all 4 of her extremities with 4-5/5 strength as below, has no other focal deficits. PAST MEDICAL HISTORY: 1. Coronary artery disease. 2. Congestive heart failure, unknown type. 3. History of cerebrovascular accident in 09/22/2017 with residual effects on 09/23/2017 and 09/24/2017. 4. Chronic atrial fibrillation on anticoagulation. 5. Chronic use of anticoagulation. 6. Hyperlipidemia, primary cholesterol. 7. Hypertension. 8. Chronic obstructive pulmonary disease. 9. Hypothyroidism. PAST SURGICAL HISTORY: 1. Left brachial embolectomy in 09/22/2017. 2. CABG x6 vessels [place] [address] Howell. 3. Right elbow ORIF. HOME MEDICATIONS: 1. Aspirin 81 mg daily. 2. Eliquis 2.5 mg p.o. b.i.d. 3. Cardizem CD 240 mg p.o. daily. 4. DuoNebs every 4 hours. 5. Ramipril 5 mg p.o. b.i.d. 6. Digoxin 0.125 mg daily. 7. Oxygen at bedtime. 8. Amlodipine 5 mg daily. 9. Cipro 250 mg p.o. b.i.d. started for unknown reasons. Urine is negative. 10. Melatonin 6 mg p.o. at bedtime. 11. Trazodone 100 mg p.o. at bedtime. 12. Atorvastatin 20 mg p.o. at bedtime. 13. Levothyroxine 100 mcg daily. 14. Losartan 50 mg p.o. b.i.d. ALLERGIES: 1. METOPROLOL TARTRATE, reaction unknown. 2. SULFA, reaction unknown. FAMILY HISTORY: Unknown. Per the reports, there is no history of clotting or bleeding disorder. No immune dysfunction. SOCIAL HISTORY: She does have a history of remote tobacco abuse in the past. She quit many years ago, more than 10. She is negative for habits x3 now. She is at a hospital DNR and her daughter does wish that for this to continue, arrangements have been made. REVIEW OF SYSTEMS: Not obtainable due to mental status issues. PHYSICAL EXAMINATION: VITAL SIGNS: Temperature 98.4, pulse 77, blood pressure 139/81, respiratory rate 15, satting 96% on room air. GENERAL: She is awake. She is sleeping soundly, but arousable. She is an age- appropriate appearing 81-year-old female. She does not appear to be in any distress. HEENT: Normocephalic and atraumatic. Her pupils are sluggish, but reactive to light bilaterally, mucous membranes are moist. She has no visible lesions. No thrush. NECK: Supple, without lymphadenopathy, JVD, or thyromegaly. She has no carotid upstroke on the left and no bruit. She has a normal pulse on the right with slightly delayed upstroke. She has no bruits there either. LUNGS: Clear. There is good air movement bilaterally. There are no wheezes, rales or rhonchi. CARDIOVASCULAR: She has a normal cardiac. She is regular. She does have a faint holosystolic murmur heard at the apex, rated 2-3/6 and she has a systolic ejection murmur 2/6 on the right upper sternal border. ABDOMEN: Soft, it is nontender, nondistended. She has good bowel sounds in all 4 quadrants. There is no rebound, rigidity or guarding. No evidence of hepatosplenomegaly. EXTREMITIES: Show no cyanosis, no clubbing with 1-2+ edema to the level of the knees. SKIN: Otherwise well perfused. She has a 2-3 second capillary refill. NEUROLOGIC: She is arousable. She appears to be awake and alert. She has 4/5 strength in her right upper extremity and 5/5 strength in left upper extremity, she has 4/5 strength in her right lower extremity flexion and extension and foot dorsiflexion and extension and 5/5 on the left. She has no other focal deficits. She is dysarthric, but is answering questions somewhat appropriately. Unable to test her vision. MUSCULOSKELETAL: Normal to inspection. Large joints appear normal. There is no evidence of inflammation. No palpable effusions. LABORATORY DATA: Sodium is 137, potassium 3.7, chloride 106, bicarbonate 25, BUN 12, creatinine 0.77, glucose 77, and calcium 9.5. CBC showed a white count of 6.4, hemoglobin 15.1, hematocrit of 45.6, and platelet count is 175,000. RADIOGRAPHIC STUDIES: She had a brain CT with a left posterior parietal infarct that is evolving that did not appear on 09/24/2017 scan. MRI on 2017 did not demonstrate anything in this location either. ASSESSMENT AND PLAN: 1. Metabolic encephalopathy. 2. Subacute or evolving posterior left parietal infarct. The patient is already on maximal therapy with aspirin and Eliquis. We will ask neurology for their evaluation and their opinion whether this is new or old. In the meantime , we will continue her home medications, we will have Sonny available if she gets combative. 3. History of coronary artery disease. No acute change. Troponins are negative. 4. History of congestive heart failure of unknown type. Echocardiogram on , I reviewed the chart, she does have an EF 45% to 50% with atrial fibrillation, moderately enlarged right atrium, moderate MR, mild to moderate AI , moderate to severe TR, and elevated pulmonary artery pressures. 5. Chronic atrial fibrillation, on Eliquis and aspirin. 6. Chronic use of anticoagulants, no evidence of bleeding at present. 7. Hyperlipidemia, primary cholesterol, on atorvastatin, we will continue. 8. Hypertension as above. 9. Chronic obstructive pulmonary disease. We will continue DuoNebs. 10. Hypothyroidism on replacement with levothyroxine which will continue. 11. Status post recent left brachial artery embolectomy, arm appears to be intact. No further change. The patient will be placed on observation. MTDD
--- NOTE | 2017-10-23 22:34 | CON ---
DATE OF VISIT: 10/23/2017 CONSULTING PHYSICIAN: Hospitalist Service. HISTORY OF PRESENT ILLNESS: Ms. Coleman is an 81-year-old who was admitted last month and diagnosed with bilateral occipital lobe infarcts. She has been on a combination of aspirin, Eliquis, and a sta tin. She started having combative behavior at the [facility] and was transferred back. She had a followup CT scan, which showed a subacute area of infarction involving the left posterior parietal re gion. She has not shown any focal neurologic deficits. She continues to become irritable, especiall y when her family is out of the room. She reports seeing things that are present. Her lab work was all unremarkable. PHYSICAL EXAMINATION: GENERAL: Remarkably nonfocal other than a left homonomous field cut. She was alert and cooperative with the exam. 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 We could start some Celexa in th e daytime to see if it help keep her calm, I would continue something like Seroquel 25 mg at night to help with hallucinations.
[2017-10-23] MEDS: Amlodipine 5 MG TAB PO SCH (22:35)
[2017-10-23] MEDS: traZODone HCl 50 MG TAB PO SCH (22:35)
[2017-10-23] MEDS: Atorvastatin Calcium 20 MG TAB PO SCH (22:35)
[2017-10-23] MEDS: Erythromycin Base 0.5% Oint 1 GM TUBE EA EYE SCH (22:37)
--- NOTE | 2017-10-24 | CON ---
DATE OF CONSULTATION: 10/23/2017 HISTORY OF PRESENT ILLNESS: This is an 81-year-old lady that admitted to the hospital about 3 weeks ago when she presented with an ischemic left arm and sudden bilateral blindness. At that time, she w as found to have an embolus in her left brachial artery as well as evidence of thrombus within the le ft atrial appendage. She progressed to another small stroke while in the hospital with some expressi ve aphasia that eventually resolved. She was sent to the [facility] and then yesterday while being transf erred to [facility]. On arrival to the [facility], she was combative, so they brought h er back to the emergency room. A CT scan showed evolving occipital infarct. Patient was noted about a week and half ago to have some drainage from her sternal wire had eroded through the skin related to a remote coronary artery bypass graft. On examination, she is very pleasant lady in no distress. Alert and oriented. She does have an exposed sternal wire in her mid sternum related to a large yessenia unt of weight loss over the last few years. We will remove that wire tomorrow under local with intrav enous sedation. No evidence of further infarction or stroke and we will hold her Eliquis tonight and in the morning and resume it tomorrow.
[2017-10-24 05:17] LABS: #Eosinphils 0.2 thou/uL (0.0-0.7); #Lymphocytes 1.8 thou/uL (1.20-3.40); #Monocytes 0.6 thou/uL (0.11-0.59); #Neutrophils 3.1 thou/uL (1.40-6.50); %Basophils 0.9 % (0.0-1.0); %Eosinophils 4.2 % (0.0-10.0); %Lymphocytes 31.8 % (21.0-51.0); %Monocytes 9.6 % (0.0-10.0); %Neutrophils 53.6 % (42.0-75.0); Hemoglobin 13.8 g/dL (12.0-16.0); Mean Corpuscular HGB CONC 34.7 g/dL (32.0-36.0); Mean Corpuscular Hemoglobin 33.9 pg (27.0-31.0); Mean Corpuscular Volume 97.6 fl (81.0-99.0); Mean Platelet Volume 7.6 fL (7.4-10.4); Platelet Count 156 thou/uL (130-400); RBC Distribution Width 12.4 % (11.5-14.5); Red Blood Cell (RBC) Count 4.07 mill/uL (4.20-5.40); White Blood Cell (WBC) Count 5.7 thou/uL (4.8-10.8)
[2017-10-24 05:30] LABS: Anion Gap 5 mmol/L (10-20); BUN (Urea Nitrogen) 11 mg/dL (9.8-20.1); Calc. Creatinine Clearance 50 mL/min (70-130); Carbon Dioxide 28 mmol/L (23-31); Chloride 110 mmol/L (98-107); Estimated GFR-MDRD 79; Glucose 80 mg/dL (83-110); Potassium 3.6 mmol/L (3.5-5.1); Sodium 139 mmol/L (136-145)
[2017-10-24] MEDS: Melatonin 3 MG TAB PO SCH ×2 (07:47→23:26)
[2017-10-24] MEDS: Levothyroxine Sodium 100 MCG TAB PO SCH (07:47)
[2017-10-24] MEDS: Docusate 100 MG CAP PO SCH ×2 (08:55→21:00)
[2017-10-24] MEDS: Losartan 25 MG TAB PO SCH ×2 (09:06→23:26)
[2017-10-24] MEDS: Citalopram 20 MG TAB PO SCH (09:06)
[2017-10-24] MEDS: Digoxin 0.125 MG TAB PO SCH (09:06)
[2017-10-24] MEDS: Ramipril 5 MG CAP PO SCH ×2 (09:06→21:00)
[2017-10-24] MEDS ORDERED: Ketamine 50 MG/ML VIAL ONE (11:29)
--- NOTE | 2017-10-24 11:34 | PDOC.PN ---
- Subjective Encounter Start Date: 10/24/17 Encounter Start Time: 11:36 Subjective: No complaints today. Lying in bed -: No acute events overnight. - Objective Resuscitation Status: Resuscitation Status DNR:Do Not Resuscitate MAR Reviewed: Yes Vital Signs & Weight: Vital Signs (12 hours) Temp Pulse Resp BP BP Pulse Ox 10/24/17 09:06 83 128/70 10/24/17 08:00 98.3 F 83 20 10/24/17 07:20 98.3 F 83 20 128/70 94 L 10/24/17 06:44 74 16 99 10/24/17 04:00 97.5 F L 63 20 150/94 H 98 10/24/17 02:07 94 L 10/24/17 00:23 97.3 F L 72 16 137/80 98 Weight Admit Weight 117 lb Weight 117 lb I&O: 10/23/17 10/24/17 10/25/17 06:59 06:59 06:59 Intake Total 240 Output Total 1 Balance 239 Result Diagrams: 10/24/17 04:47 10/24/17 04:47 Phys Exam - Physical Examination Constitutional: NAD HEENT: PERRLA, moist MMs, sclera anicteric Neck: no JVD, supple, full ROM Respiratory: no wheezing, no rales, no rhonchi, clear to auscultation bilateral Cardiovascular: RRR, no significant murmur, no rub Gastrointestinal: soft, non-tender, no distention, positive bowel sounds Musculoskeletal: no edema, pulses present Neurological: non-focal Psychiatric: normal affect Deviation from normal: AO x 2 (person and place) Skin: no rash, normal turgor Dx/Plan (1) CVA (cerebral vascular accident) Code(s): I63.9 - CEREBRAL INFARCTION, UNSPECIFIED Status: Acute Qualifiers: CVA mechanism: unspecified Qualified Code(s): I63.9 - Cerebral infarction, unspecified Comment: Stable. Alert today. New vs old. Evolving, seen in L posterior parietal region. On statins, ASA, Eliquis. Neurology on board. Recs appreciated. (2) A-fib Code(s): I48.91 - UNSPECIFIED ATRIAL FIBRILLATION Status: Acute Qualifiers: Atrial fibrillation type: paroxysmal Qualified Code(s): I48.0 - Paroxysmal atrial fibrillation Comment: Rate controlled. Continue dogoxin, diltiazem, Eliquis and ASA. (3) Chronic respiratory failure with hypoxia Code(s): J96.11 - CHRONIC RESPIRATORY FAILURE WITH HYPOXIA Status: Chronic Comment: Stable. (4) CAD (coronary artery disease) Code(s): I25.10 - ATHSCL HEART DISEASE OF [place] CORONARY ARTERY W/O ANG PCTRS Status: Chronic Qualifiers: Coronary Disease-Associated Artery/Lesion type: bypass graft [place] vs. transplanted heart: [place] heart Associated angina: without angina Qualified Code(s): I25.810 - Atherosclerosis of coronary artery bypass graft(s) without angina pectoris Comment: Stable, chest pain free. Continue home meds. (5) COPD (chronic obstructive pulmonary disease) Status: Chronic Qualifiers: COPD type: unspecified COPD Qualified Code(s): J44.9 - Chronic obstructive pulmonary disease, unspecified Comment: Stable. Not in acute exacerbartion. Continue nebs. (6) HLD (hyperlipidemia) Code(s): E78.5 - HYPERLIPIDEMIA, UNSPECIFIED Status: Chronic Qualifiers: Hyperlipidemia type: pure hypercholesterolemia Qualified Code(s): E78.00 - Pure hypercholesterolemia, unspecified; E78.0 - Pure hypercholesterolemia Comment: Continue Statins. (7) HTN (hypertension) Code(s): I10 - ESSENTIAL (PRIMARY) HYPERTENSION Status: Chronic Qualifiers: Hypertension type: essential hypertension Comment: At goal. Continue current meds. (8) Hypothyroidism Code(s): E03.9 - HYPOTHYROIDISM, UNSPECIFIED Status: Chronic Qualifiers: Hypothyroidism type: unspecified Qualified Code(s): E03.9 - Hypothyroidism , unspecified Comment: TSH WNL. Continue levothyroxine. (9) Chronic anticoagulation Code(s): Z79.01 - CORRECTION (CURRENT) USE OF ANTICOAGULANTS Status: Chronic Comment: On ASA and Eliquis - Plan cont current plan of care, PT/OT, social work assistant, DVT proph w/SCDs * . Review of Systems - Medications/Allergies Allergies/Adverse Reactions: Allergies Allergy/AdvReac Type Severity Reaction Status Date / Time metoprolol tartrate Allergy Verified 04/19/16 20:07 [From Lopressor] Sulfa (Sulfonamide Allergy Verified 04/19/16 20:07 Antibiotics) Medications: Current Medications Acetaminophen (Tylenol) 650 mg PO Q4H PRN PRN Reason: Headache/Fever or Pain Hydrocodone Bitart/Acetaminophen ([place] 5/325) 1 tab PO Q4H PRN PRN Reason: Moderate Pain (4-6) Albuterol/Ipratropium (Duoneb) 3 ml NEB QID-RT [facility] Last Admin: 10/24/17 10:41 Dose: Not Given Amlodipine Besylate (Norvasc) 5 mg PO HS [facility] Last Admin: 10/23/17 22:35 Dose: 5 mg Aspirin (Aspirin Chewable) 81 mg PO DAILY [facility] Last Admin: 10/24/17 09:05 Dose: 81 mg Atorvastatin Calcium (Lipitor) 20 mg PO HS [facility] Last Admin: 10/23/17 22:35 Dose: 20 mg Citalopram Hydrobromide (Celexa) 20 mg PO DAILY [facility] Last Admin: 10/24/17 09:06 Dose: 20 mg Digoxin (Lanoxin) 0.125 mg PO DAILY [facility] Last Admin: 10/24/17 09:06 Dose: 0.125 mg Diltiazem HCl (Cardizem Cd) 240 mg PO DAILY [facility] Last Admin: 10/24/17 09:06 Dose: 240 mg Docusate Sodium (Colace) 100 mg PO BID [facility] Last Admin: 10/24/17 08:55 Dose: Not Given Erythromycin (Erythromycin Base 0.5% Oint) 0.05 gm EA EYE BID [facility] Stop: 10/26/17 21:01 Last Admin: 10/23/17 22:37 Dose: 1 applic Hydralazine HCl (Apresoline) 10 mg SLOW IVP Q4H PRN PRN Reason: SBP > 180 Levothyroxine Sodium (Synthroid) 100 mcg PO 0600 [facility] Last Admin: 10/24/17 07:47 Dose: Not Given Losartan Potassium (Cozaar) 50 mg PO BID [facility] Last Admin: 10/24/17 09:06 Dose: 50 mg Melatonin (Melatonin) 6 mg PO HS [facility] Last Admin: 10/24/17 07:47 Dose: Not Given Ondansetron HCl (Zofran Odt) 4 mg PO Q6H PRN PRN Reason: Nausea/Vomiting Ondansetron HCl (Zofran) 4 mg IVP Q6H PRN PRN Reason: Nausea/Vomiting Quetiapine Fumarate (Seroquel) 25 mg PO QPM [facility] Last Admin: 10/23/17 22:36 Dose: 25 mg Ramipril (Altace) 5 mg PO BID [facility] Last Admin: 10/24/17 09:06 Dose: 5 mg Sodium Chloride (Flush - Normal Saline) 10 ml IVF Q12HR [facility] Sodium Chloride (Flush - Normal Saline) 10 ml IVF PRN PRN PRN Reason: Saline Flush Trazodone HCl (Desyrel) 100 mg PO HS [facility] Last Admin: 10/23/17 22:35 Dose: 100 mg Ziprasidone (Geodon) 10 mg IM Q8H PRN PRN Reason: Agitation
[2017-10-24] MEDS ORDERED: Lidocaine 1% (PF) 30 ML VIAL ONE (11:38)
[2017-10-24] MEDS ORDERED: Promethazine HCl 25 MG/ML VIAL IM PRN (12:03)
[2017-10-24] MEDS ORDERED: Ondansetron HCl/PF 4 MG/2 ML Vial IVP PRN (12:03)
--- NOTE | 2017-10-24 12:17 | OP ---
DATE OF PROCEDURE: 10/24/2017 PREOPERATIVE DIAGNOSIS: Sternal wire eroded through the skin due to weight loss. POSTOPERATIVE DIAGNOSIS: Sternal wire eroded through the skin due to weight loss. PROCEDURE: Removal of sternal wires x4. SURGEON: Dr. Pardeep Magana ANESTHESIA: Sedation with local. PROCEDURE IN DETAIL: After prepping and draping, 1% lidocaine was used to infiltrate around the expo sed wire. It was untwisted and pulled through. Due to the precarious nature of the skin overlying t he other obvious sternal wires, local anesthetic was infiltrated in each of these areas and a small i ncision made over each wire untwisted and removed. These 3 additional skin incisions were closed wit h a Vicryl suture and the exposed wire was left open due to the possibility of infection.
[2017-10-24] MEDS ORDERED: traMADol HCl 50 MG TAB PO PRN (12:48)
[2017-10-24] MEDS: Erythromycin Base 0.5% Oint 1 GM TUBE EA EYE SCH ×2 (13:49→23:25)
[2017-10-24] MEDS: Atorvastatin Calcium 20 MG TAB PO SCH (21:01)
[2017-10-24] MEDS: traZODone HCl 50 MG TAB PO SCH (21:01)
[2017-10-24] MEDS: Amlodipine 5 MG TAB PO SCH (21:01)
[2017-10-25] MEDS: Levothyroxine Sodium 100 MCG TAB PO SCH (05:39)
[2017-10-25] MEDS ORDERED: Apixaban 2.5 MG TAB PO SCH (09:00)
[2017-10-25] MEDS: Docusate 100 MG CAP PO SCH (09:37)
[2017-10-25] MEDS: Ramipril 5 MG CAP PO SCH (09:37)
[2017-10-25] MEDS: Digoxin 0.125 MG TAB PO SCH (09:37)
[2017-10-25] MEDS: Losartan 25 MG TAB PO SCH (09:38)
[2017-10-25] MEDS: Citalopram 20 MG TAB PO SCH (09:38)
[2017-10-25] MEDS: Erythromycin Base 0.5% Oint 1 GM TUBE EA EYE SCH (09:39)
[2017-10-25 12:33] VITALS: BP 139/81; TEMP 97.6
--- NOTE | 2017-10-26 11:44 | DIS ---
DATE OF ADMISSION: 10/22/2017 DATE OF DISCHARGE: 10/25/2017 DISCHARGE DIAGNOSES: Cerebrovascular accident, paroxysmal atrial fibrillation, chronic respiratory f ailure with hypoxia, CAD, COPD, hyperlipidemia, hypertension, hypothyroidism, chronic anticoagulation . HISTORY OF PRESENT ILLNESS/HOSPITAL COURSE: Ms. Manoj Coleman is an 81-year-old female who was admit emi at [facility] from 09/22/2017 to 09/28/2017 for bilateral occipital infarct and acute bl indness. She was sent to the OR on 09/22/2017 for embolectomy of left brachial artery and on the day, she developed expressive aphasia and right arm weakness, resolved. This occurred again on 11/2017, and by the time of discharge on 09/28/2017, she had some expressive aphasia, but no other de fects motor campos. According to notes from that admission, she was originally discharged to [facility] for rehabilitation and was then transferred to [facility] for continued care. For a short time a t [facility] and while at [facility] in the late morning around 11:00 a.m., she has become combativ e with staff to the point of fighting back and scratching them. She was then sent to the emergency r o for being combative. She had some reported 3 to 4+ lower extremity edema. Imaging was done, [facility] showed a posterior parietal infarct. Internal Medicine was then consulted to admit. Per other re ports, the patient had been refusing medication at both facilities. In the emergency room, CT scan w as done with the above findings. Her cardiac biomarkers were remarkable and chemistries were normal. By the time she was evaluated by , she was sleeping soundly. She was able to wake up and was alert. She had some dysarthria, but was able to answer questions appropriately. She was able to fol low commands and move all her extremities with 4/5 strength. There were no other deficits. She was found to have a subacute or evolving posterior left parietal infarct. She was taken to the stroke un it and monitored on telemetry. She was eventually started on her aspirin and Eliquis. 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 She was started on Celexa during the daytime to see if it keeps her calm, and al so 25 mg of Seroquel at night to help with her hallucination. She responded to this medication and o n the day of discharge, she was alert and able to answer questions appropriately. She was then deeme d stable to return to her rehabilitation facility. DISCHARGE MEDICATIONS: Celexa 20 mg daily, Seroquel 25 mg in the evening, Geodon 10 mg IM every 8 ho urs as needed for agitation, ramipril 5 mg twice a day, levothyroxine 100 mcg daily, docusate 100 mg b.i.d., diltiazem 240 mg daily, losartan potassium one tab twice a day, digoxin 125 mcg daily, atorva statin 20 mg at bedtime, Eliquis 2.5 mg twice daily, DuoNeb 3 mL nebulizer 4 times daily, trazodone 2 tablets at bedtime, aspirin 81 mg daily, melatonin 2 tabs at bedtime, amlodipine 5 mg at bedtime. DISCONTINUED MEDICATION: Ciprofloxacin. PHYSICAL EXAMINATION: She was examined on the day of discharge. VITAL SIGNS: Temperature 97.6 degree Fahrenheit, pulse rate 89, respiratory rate 18, oxygen saturati on 93% on room air, blood pressure 139/81. GENERAL: Not in acute distress, lying comfortably in bed. HEENT: Moist mucous membranes. Sclerae are anicteric, not pale. HEAD: Normocephalic, atraumatic. NECK: No JVD. Supple. RESPIRATORY: No wheezes or rales. Vesicular breath sounds bilaterally. CARDIOVASCULAR: Irregular rhythm, but regular rate. No murmurs or rubs. S1 and S2 only. GASTROINTESTINAL: Soft, nontender, nondistended. Bowel sounds normoactive. No organomegaly. NEUROLOGIC: Alert and oriented to person and place. No focal deficits. SKIN: Warm. No rashes or lesions. PSYCHIATRIC: Normal mood and affect. LABORATORY DATA: WBC 5.7, hemoglobin 13.8, platelet 156. Sodium 139, potassium 3.6, chloride 110, c arbon dioxide 28, anion gap 5, BUN 11, creatinine 0.71, glucose 80, calcium 9. IMAGING: Brain CT, as reported in HPI/hospital course. PROCEDURE: Removal of sternal wires x4. CONSULTS: Cardiovascular, Surgery, Neurology. CONDITION AT DISCHARGE: Stable and improved. DIET: Heart healthy with Ensure supplements. ACTIVITY: To resume as tolerated. CARE GOALS: To follow up with primary care physician within 1 week of discharge. DISCHARGE TIME: 65 minutes including chart review and documentation.
--- NOTE | 2017-10-28 00:26 | EKG ---
Test Reason : CVA Blood Pressure : / mmHG Vent. Rate : 093 BPM Atrial Rate : 227 BPM P-R Int : 000 ms QRS Dur : 094 ms QT Int : 372 ms P-R-T Axes : 000 -25 199 degrees QTc Int : 462 ms Atrial fibrillation with premature ventricular or aberrantly conducted complexes Septal infarct , age undetermined Abnormal ECG Confirmed by JUANA SAN ([id number]), video tape editor RHONDA DUMONT ([id number]) on 10/28/2017 12:25:15 AM Referred By: ANGEL SAN Confirmed By:JUANA SAN
== END 2017-10-25 12:37 | DRG 981 ==
LOC: ERS 15:43 → 2SE 18:40
PROVIDERS: ADMIT Emergency Medicine; ATTEND Emergency Medicine
PROC: 0PC00ZZ Extirpation of Matter from Sternum, Open Approach (ICD-10-PCS; principal; 2017-10-23)
DX: I63.9 Cerebral infarction, unspecified (principal); G93.41 Metabolic encephalopathy; J96.10 Chronic respiratory failure, unspecified whether with hypoxia or hypercapnia; I48.2 Chronic atrial fibrillation; I11.0 Hypertensive heart disease with heart failure; I50.9 Heart failure, unspecified; I25.10 Atherosclerotic heart disease of native coronary artery without angina pectoris; E78.5 Hyperlipidemia, unspecified; I10 Essential (primary) hypertension; J44.9 Chronic obstructive pulmonary disease, unspecified; E03.9 Hypothyroidism, unspecified; Z95.1 Presence of aortocoronary bypass graft; Z87.891 Personal history of nicotine dependence; Z66 Do not resuscitate; T85.898A Other specified complication of other internal prosthetic devices, implants and grafts, initial encounter; Y79.3 Surgical instruments, materials and orthopedic devices (including sutures) associated with adverse incidents; Z79.01 Long term (current) use of anticoagulants; F01.50 Vascular dementia, unspecified severity, without behavioral disturbance, psychotic disturbance, mood disturbance, and anxiety
CPT/HCPCS: 36415; 51701; 70450; 80048; 81003; 82553; 84443; 84484; 85007; 85025; 85027; 85610; 85730; 87077; 87086; 93005; 94640; A4216; G8978-GP-CJ; G8979-GP-CI; G8987-GO-CL; G8988-GO-CJ; G8996-GN-CH; G8997-GN-CH; J2001; J7620

== ENCOUNTER 2017-11-04 20:09 | Inpatient (IN) | payer MEDICARE ==
[2017-11-04 20:34] LABS: Bilirubin Negative (Negative); Blood, Urine Negative (Negative); Clarity CLOUDY (Clear); Glucose, Urine (Dipstick) Negative (Negative); Leukocyte Negative (Negative); Nitrite Negative (Negative); Protein, Urine (Dipstick) Negative (Neg-Trace); Specific Gravity, Urine 1.013 (1.002-1.036); Urobilinogen 0.2 mg/dL (0.2-1.0)
[2017-11-04 20:55] LABS: #Basophils 0.1 thou/uL (0.0-0.2); #Eosinphils 0.1 thou/uL (0.0-0.7); #Lymphocytes 1.6 thou/uL (1.20-3.40); #Monocytes 0.5 thou/uL (0.11-0.59); #Neutrophils 4.9 thou/uL (1.40-6.50); %Basophils 0.9 % (0.0-1.0); %Eosinophils 1.1 % (0.0-10.0); %Lymphocytes 22.5 % (21.0-51.0); %Monocytes 6.6 % (0.0-10.0); Hemoglobin 15.7 g/dL (12.0-16.0); Mean Corpuscular Hemoglobin 34.2 pg (27.0-31.0); Mean Corpuscular Volume 97.7 fl (81.0-99.0); Mean Platelet Volume 7.6 fL (7.4-10.4); Platelet Count 211 thou/uL (130-400); RBC Distribution Width 12.4 % (11.5-14.5); Red Blood Cell (RBC) Count 4.58 mill/uL (4.20-5.40); White Blood Cell (WBC) Count 7.1 thou/uL (4.8-10.8)
[2017-11-04 21:01] LABS: INR-International Normal Ratio 1.2; PTT 31.7 SEC (22.9-36.1); Prothrombin Time 15.9 SEC (12.0-14.7)
--- NOTE | 2017-11-04 21:03 | RAD ---
TWO VIEWS OF THE KNEE: Comparison: None. History: Fall with right leg pain. FINDINGS: Two views of the wrist knee shows no evidence of acute fracture or dislocation. No knee effusion is s een. No significant degenerative changes are seen. Vascular calcifications are seen posterior to the knee. IMPRESSION: No evidence of acute osseous abnormality. POS: [facility]
--- NOTE | 2017-11-04 21:06 | RAD ---
SINGLE VIEW OF THE PELVIS: Comparison: 06-19-16 History: Fall with right hip pain. FINDINGS: Single view of the right hip shows an impacted fracture of the right femoral neck. No degenerative ch anges seen in either hip. There is remottling of the right superior and inferior pubic rami which rep resent remote healed fractures. IMPRESSION: Acute right femoral neck fracture. POS: [facility]
[2017-11-04 21:17] LABS: ALT (SGPT) 19 U/L (8-55); AST (SGOT) 20 U/L (5-34); Albumin 3.8 g/dL (3.4-4.8); Alkaline Phosphatase 66 U/L (40-150); Anion Gap 11 mmol/L (10-20); BUN (Urea Nitrogen) 15 mg/dL (9.8-20.1); Bilirubin, Total 0.6 mg/dL (0.2-1.2); Calc. Creatinine Clearance 0 mL/min (70-130); Calcium 9.8 mg/dL (7.8-10.44); Carbon Dioxide 26 mmol/L (23-31); Chloride 107 mmol/L (98-107); Estimated GFR-MDRD 76; Globulin 2.3 g/dL (2.4-3.5); Glucose 104 mg/dL (83-110); Magnesium 2.1 mg/dL (1.6-2.6); Potassium 3.9 mmol/L (3.5-5.1); Protein, Total 6.1 g/dL (6.0-8.3); Sodium 140 mmol/L (136-145)
[2017-11-04 21:20] LABS: CKMB 1.8 ng/mL (0-6.6); Troponin I Less than 0.010 ng/mL (< 0.028)
[2017-11-04] MEDS ORDERED: Fentanyl 100 MCG/2 ML VIAL ONE (21:44)
--- NOTE | 2017-11-04 21:57 | RAD ---
TWO VIEWS RIGHT HIP: Comparison: Pelvic radiograph, 11-04-17. History: Fall, right hip pain. FINDINGS: Two views of the right hip shows a fracture of the right femoral neck which is impacted. Surrounding soft tissue swelling is seen. No degenerative change is seen in the right hip. IMPRESSION: Right femoral neck fracture. POS: [facility]
[2017-11-04] MEDS ORDERED: Lorazepam 2 MG/ML VIAL ONE (22:17)
--- NOTE | 2017-11-04 22:46 | CT ---
CT OF THE CERVICAL SPINE WITHOUT CONTRAST: Comparison: None. History: Fall while walking out of the [employer] with neck pain. Technique: Multiple contiguous axial images were obtained in a CT of the cervical spine without contr ast. FINDINGS: Diffuse osteopenia is seen. The vertebral bodies demonstrate normal height and alignment without acut e fracture or subluxation. No prevertebral soft tissue swelling is seen. The posterior facets are well aligned. Normal alignment of the skull base with the cervical spine is seen. IMPRESSION: No evidence of acute osseous abnormality of the cervical spine. POS: [facility]
--- NOTE | 2017-11-04 22:48 | CT ---
CT OF THE BRAIN WITHOUT CONTRAST: Comparison: 10-22-17 History: Patient fell in the [place] [facility]. Head trauma, head injury. Technique: Multiple contiguous axial images were obtained in a CT of the brain without contrast. FINDINGS: There is encephalomalacia in the left parietal lobe. Smaller areas of encephalomalacia are seen in th e right occipital lobe. No new large confluent infarction is seen. Scattered hypodensities in the sub cortical and periventricular white matter are likely secondary to small vessel ischemic disease. Intr acranial vascular calcifications are seen. There is no evidence of hydrocephalus, internal hemorrhage , or extraaxial fluid collections. The calvarium and overlying soft tissues are unremarkable. The visualized paranasal sinuses and masto id air cells are well aerated. IMPRESSION: No evidence of acute intracranial abnormality. POS: [facility]
[2017-11-05] MEDS ORDERED: hydrALAZINE 20 MG/ML VIAL SLOW IVP PRN (02:28)
[2017-11-05] MEDS ORDERED: Ondansetron ODT 4 MG TAB PO PRN (02:28)
[2017-11-05] MEDS ORDERED: Dextrose 50% Abboject 50 ML SYRINGE SLOW IVP PRN (02:28)
[2017-11-05] MEDS ORDERED: Morphine 4 MG/ML VIAL SLOW IVP PRN ×2 (02:28→18:46)
[2017-11-05] MEDS ORDERED: Dextrose 5% in Water 1,000 ML IV PRN (02:28)
[2017-11-05] MEDS ORDERED: Ondansetron HCl/PF 4 MG/2 ML Vial IVP PRN (02:28)
--- NOTE | 2017-11-05 03:14 | HP ---
REQUESTING PHYSICIAN: Dr. Zamora. ATTENDING SURGEON: Dr. Dennis. CONSULTATIONS: Orthopedics, Dr. Jesus. HISTORY OF PRESENT ILLNESS: Patient is an 81-year-old woman who resides at [facility], who this evening reportedly fell in their dining facility. The patient was brought to the emergency department by ground EMS and was underwent evaluation and examination, was noted to powell ve an impacted type right femoral neck fracture. At which time, we were asked to evaluate the patien t for admission and obtain Orthopedic consultation. ALLERGIES: METOPROLOL, SULFA MEDICATIONS. CURRENT MEDICATIONS: Amlodipine, Cipro, melatonin, trazodone, atorvastatin, digoxin, levothyroxine, aspirin, diltiazem XR, docusate, losartan, ramipril, Eliquis, and DuoNebs. PAST MEDICAL HISTORY: CVA, specifically affected the right upper extremity and vision; paroxysmal at rial fibrillation; COPD; coronary artery disease; hyperlipidemia; hypertension; hypothyroidism; chron ic anticoagulation; and DVT. PAST SURGICAL HISTORY: ORIF of right elbow fracture, coronary artery bypass graft, most recently had her sternal wires removed secondary to infection. SOCIAL HISTORY: Patient quit smoking approximately 10 years ago. Denies drug or alcohol use and is currently a resident at [facility]. REVIEW OF SYSTEMS: A 10-point review of systems is negative unless otherwise stated. Resuscitation status is DO NOT RESUSCITATE. PHYSICAL EXAMINATION: VITAL SIGNS: Blood pressure 153/78, heart rate 91, respirations 24, oxygen saturation is 95% on 2 li ters via nasal cannula, temperature is 98.3. GENERAL: Patient is resting in bed. Family at bedside stated her mental status is at her baseline. She will answer very simple questions and follow very simple commands, primarily moving her left tadeo e and she does have movement to her right foot. HEENT: Head: There is a contusion noted on the forehead, otherwise atraumatic and normocephalic. E ars: Atraumatic without discharge. Nose: Atraumatic without discharge. Eyes: Patient has her eye s closed and appears to have an ointment in both eyes, which the family states that this is normal fo r her. Oropharynx is clear. NECK: Nontender. Trachea is midline. No JVD. CHEST: Has scattered rhonchi and expiratory wheezes where he is about to receive a DuoNeb. HEART: Irregularly irregular consistent with her atrial fibrillation. ABDOMEN: Soft, flat with hypoactive bowel sounds. Pelvis is stable with right hip discomfort consis tent with her fracture. EXTREMITIES: Show capillary refill less than 3 seconds. Pulses 2+. BACK: By report is atraumatic and nontender. LABORATORY FINDINGS: White blood cell count 7.1, hemoglobin 15.7, hematocrit 44.8, platelets 211. S odium 140, potassium 3.9, chloride 107, CO2 of 26, BUN 15, creatinine 0.73, glucose 104. LFTs are un remarkable. CK-MB 1.8, troponin is less than 0.010. PT 16, INR 1.2, PTT 32. Urinalysis is unremark able. RADIOGRAPHS: CT of the brain without contrast shows no acute evidence of intracranial abnormality. CT of the C-spine without contrast shows no evidence of acute osseous abnormality of the C-spine. AP pelvis shows acute right femoral neck fracture. Right hip radiograph showed right femoral neck frac ture. Two-view of the right knee showed no evidence of acute osseous abnormality. ASSESSMENT AND PLAN: 1. Status post ground level fall. 2. Right femoral neck fracture. 3. Pain secondary to acute trauma. 4. History of cerebrovascular accident. 5. Paroxysmal atrial fibrillation. 6. Chronic obstructive pulmonary disease. 7. History of hyperlipidemia. 8. History of hypertension. 9. History of hyperthyroidism. 10. History of chronic anticoagulation on aspirin and Eliquis for her deep venous thrombosis. Plan will be to admit the patient to the surgical floor for pain management. Scheduled DuoNebs, bertin ritis, mechanical DVT prophylaxis. We will continue her amlodipine and digoxin. The case was discus sed with Dr. Jesus and he will talk with family tomorrow morning in regard to surgical repair or the possibility thereof. The evaluation, examination, radiographic and laboratory findings will be disc ussed with Dr. Dennis after this dictation.
[2017-11-05 04:30] LABS: #Lymphocytes 0.6 thou/uL (1.20-3.40); #Neutrophils 10.2 thou/uL (1.40-6.50); %Basophils 0.2 % (0.0-1.0); %Eosinophils 0.3 % (0.0-10.0); %Lymphocytes 5.2 % (21.0-51.0); %Monocytes 8.4 % (0.0-10.0); %Neutrophils 85.9 % (42.0-75.0); Hemoglobin 13.3 g/dL (12.0-16.0); Mean Corpuscular HGB CONC 34.4 g/dL (32.0-36.0); Mean Corpuscular Hemoglobin 33.6 pg (27.0-31.0); Mean Corpuscular Volume 97.5 fl (81.0-99.0); Mean Platelet Volume 7.9 fL (7.4-10.4); Platelet Count 198 thou/uL (130-400); RBC Distribution Width 12.4 % (11.5-14.5); Red Blood Cell (RBC) Count 3.97 mill/uL (4.20-5.40); White Blood Cell (WBC) Count 11.9 thou/uL (4.8-10.8)
[2017-11-05] MEDS: Sodium Chloride 0.9% 1,000 ML IV SCH ×3 (04:54→21:40)
[2017-11-05] MEDS: Ketorolac Tromethamine 30 MG/ML VIAL IVP SCH ×4 (04:54→21:38)
[2017-11-05] MEDS: Acetaminophen 1,000 MG in Premix Bag 1 BAG IVPB SCH ×3 (04:54→23:46)
[2017-11-05 04:58] LABS: Anion Gap 9 mmol/L (10-20); BUN (Urea Nitrogen) 13 mg/dL (9.8-20.1); Calc. Creatinine Clearance 54 mL/min (70-130); Calcium 9.2 mg/dL (7.8-10.44); Carbon Dioxide 25 mmol/L (23-31); Chloride 109 mmol/L (98-107); Estimated GFR-MDRD 89; Glucose 135 mg/dL (83-110); Magnesium 1.9 mg/dL (1.6-2.6); Phosphorus 2.8 mg/dL (2.3-4.7); Potassium 3.8 mmol/L (3.5-5.1); Sodium 139 mmol/L (136-145)
[2017-11-05] MEDS: Senokot S 8.6-50 MG TAB PO SCH ×2 (08:25→21:36)
[2017-11-05] MEDS: Polyethylene Glycol 3350 17 GM Packet PO SCH (08:25)
[2017-11-05] MEDS: Digoxin 0.125 MG TAB PO SCH (08:25)
--- NOTE | 2017-11-05 08:34 | CON ---
DATE OF CONSULTATION: 11/05/2017 CHIEF COMPLAINT: Right hip pain. HISTORY OF PRESENT ILLNESS: Ms. Coleman is an 81-year-old female who fell last night. She was walki ng at [facility]. She landed on her right side. She had a CVA approximately 6 wee ks ago, this has left her with some visual loss. She has been unstable. She did not use a walker. She does normally have help when she ambulates. She was unable to ambulate after her fall. She was taken to the emergency department. She has been admitted to the hospital by the General Surgery Trau ma Service and found to have a femoral neck fracture of the right hip. ALLERGIES: METOPROLOL and SULFA. MEDICATIONS: Xarelto, which she took yesterday, amlodipine, Cipro, melatonin, trazodone, atorvastati n, digoxin, levothyroxine, diltiazem, aspirin, losartan, ramipril and DuoNebs. PAST MEDICAL HISTORY: Recent cerebrovascular accident affecting the right upper extremity and visual loss, atrial fibrillation, COPD, coronary artery disease, hyperlipidemia, hypertension, hypothyroidi sm, history of DVT. PAST SURGICAL HISTORY: 1. Previous open reduction and internal fixation right distal humerus fracture. 2. Coronary artery bypass graft. SOCIAL HISTORY: The patient smoked cigarettes in the past, but quit 10 years ago. She denies drug o r alcohol use. She lives at [facility]. Her family is at the bedside. REVIEW OF SYSTEMS: The patient reports pain in the hip, otherwise denies positives on 10 point revie w of systems. FAMILY MEDICAL HISTORY: Noncontributory. PHYSICAL EXAMINATION: VITAL SIGNS: Temperature is 97.8, pulse is 78, respiratory rate 22, oxygen saturation 97%, blood pre ssure 132/64. GENERAL: She is alert and oriented, lying supine in no apparent distress. RESPIRATORY: Breathing comfortably. HEENT: The patient has ecchymosis and abrasion over her right eye. ABDOMEN: Soft, nontender, nondistended. MUSCULOSKELETAL: The patient's right leg has pain with motion. She has slight ecchymosis. She is r esting in a flexed position. She has intact sensation and palpable pulse distally. IMAGES: X-rays demonstrate an impacted and shortened right femoral neck fracture. IMPRESSION: Right femoral neck fracture in an elderly female. PLAN: At this point, I had a long discussion with the patient's family and her about appropriate joseph atment. She has several serious medical problems, but does still ambulate and has a quality of life. She would best be treated with operative intervention in my opinion to allow her to mobilize and gi ve her pain relief. We have discussed nonoperative treatment options as well. I think a hemiarthrop lasty of the right hip will give her the best function with a reliable outcome. I worry that she wou ld have complications from percutaneous screw fixation such as collapse, hardware failure or avascula r necrosis. The family is aware of risks which primarily would include worsening or a new stroke, ca rdiac complication, pulmonary complication and others. I will hold off on surgery today given that s he had Andrésto yesterday. I will plan for surgery tomorrow after appropriate preoperative medical op timization. She will have DVT prophylaxis and pain control.
[2017-11-05] MEDS ORDERED: Acetaminophen 500 MG TAB PO SCH (09:00)
[2017-11-05] MEDS ORDERED: traMADol HCl 50 MG TAB PO PRN (09:17)
[2017-11-05] MEDS: Acetaminophen 500 MG TAB PO SCH ×2 (11:31→18:48)
[2017-11-05] MEDS ORDERED: Labetalol HCl 100 MG/20 ML VIAL SLOW IVP PRN (16:45)
[2017-11-05] MEDS ORDERED: Furosemide 40 MG/4 ML VIAL SLOW IVP SCH (17:00)
--- NOTE | 2017-11-05 17:49 | RAD ---
AP VIEW CHEST: INDICATIONS: History of tachycardia. COMPARISON: Prior exam dated 09/22/2017. FINDINGS: The prominent cardiomegaly and mild pulmonary vasculature congestion is stable. Chronic lung changes are stable. No focal consolidation, pleural effusion, or pneumothorax is evident. IMPRESSION: 1. Stable cardiomegaly. 2. Stable chronic lung changes. POS: [facility]
[2017-11-05] MEDS ORDERED: Acetaminophen 1,000 MG in Premix Bag 1 BAG IVPB SCH (19:00)
--- NOTE | 2017-11-05 19:18 | PRG ---
DATE OF SERVICE: 11/05/2017 ATTENDING PHYSICIAN: Salvador Fermin DO SUBJECTIVE: Mrs. Coleman is an 81-year-old female, who resides at [facility]. She reportedly had a ground level fall yesterday evening at her facility and was brought by ground EMS t [facility] ED, where she was evaluated and found to have an impacted right femoral neck fracture. The patient has a history of recent CVA, which affects her right upper extremities as well as her vis ion. She also has a history of COPD, paroxysmal atrial fibrillation, coronary artery disease, as wel l as other medical comorbidities. Prior to this afternoon, the patient developed respiratory distres s with respirations of 28, oxygen saturation 96% on 2 liters nasal cannula. Her blood pressure was a lso elevated at 184/100 with a heart rate of 105. Upon exam, the patient reported being "unable to c atch her breath." She denied chest pain. BNP was ordered, which was elevated at 759.0. She was giv en IV hydralazine for blood pressure. She was also started on labetalol, furosemide, Solu-Medrol, an d DuoNebs. She was then transferred to the [facility]. OBJECTIVE: VITAL SIGNS: Blood pressure 184/100, pulse 105, temperature 98.4, respirations 28, O2 sat 96% on 2 l iters nasal cannula. GENERAL APPEARANCE: The patient is sitting in bed. She appears to be in moderate respiratory distre ss with markedly increased work of breathing and accessory muscle use. HEENT: Normocephalic and atraumatic. RESPIRATORY: She has a very mild wheezing bilaterally. CARDIOVASCULAR: She has an irregularly irregular rhythm with tachycardia. ABDOMEN: Soft, nontender, and nondistended. EXTREMITIES: The patient is neurovascularly intact x4. NEUROLOGIC: The patient is grossly alert and oriented and able to respond to commands. She answers questions appropriately. LABORATORY DATA: Hematology: WBC is 11.9, hemoglobin 13.3, hematocrit 38.7, platelets 198. Clinical Support Associate ry: Sodium 139, potassium 3.8, chloride 109, bicarbonate 25, BUN 13, creatinine 0.64, glucose 135, c alcium 9.2, phosphorus 2.8, magnesium 1.9. BNP is 759.0. IMAGING: Chest x-ray: 1. Stable cardiomegaly. 2. Stable chronic lung changes. ASSESSMENT: 1. Status post ground level fall. 2. Right femoral neck fracture. 3. Acute chronic obstructive pulmonary disease exacerbation. 4. Acute traumatic pain. 5. History of cerebrovascular accident. 6. Paroxysmal atrial fibrillation. 7. History of hypertension. 8. History of hyperlipidemia. 9. History of hyperthyroidism. 10. History of chronic anticoagulation with aspirin and Eliquis for deep venous thrombosis. PLAN: 1. Transferred to the [facility]. 2. Start Lasix and Solu-Medrol for COPD exacerbation in the setting of acute CHF exacerbation. Resp iratory therapy including BiPAP as needed. 3. Continue home amlodipine and digoxin. 4. Labetalol 10 mg IV push and hydralazine for blood pressure control. We will start losartan 50 mg p.o. b.i.d. 5. Current surgical plan will be to go to the OR once the patient is medically stable. This patient was seen and examined along with Dr. Salvador Fermin, who agrees with the assessment and p stephanie.
[2017-11-05] MEDS: Atorvastatin Calcium 20 MG TAB PO SCH (21:36)
[2017-11-05] MEDS: Losartan 25 MG TAB PO SCH ×2 (21:36)
[2017-11-05] MEDS: traZODone HCl 50 MG TAB PO SCH (21:36)
[2017-11-05] MEDS: Amlodipine 5 MG TAB PO SCH (21:36)
--- NOTE | 2017-11-05 23:59 | PRG ---
DATE OF SERVICE: 11/05/2017 SUBJECTIVE: Ms. Coleman is hospital day #2 status post ground level fall in which she sustained an i mpacted right femoral neck fracture. The patient late this afternoon was moved to the [facility] for what appears to be a significant COPD exacerbation. She is currently on BiPAP and appears to be toleratin g it well. The nurses state that since she has been here, she has been relatively calm and toleratin g her BiPAP. Otherwise, there have been no issues since she has been moved to the critical care unit . She has been started on Lasix after it was noted to have a BNP of 759 and she has also been given medications for her blood pressure. PHYSICAL EXAMINATION: VITAL SIGNS: Temperature is 97.7, heart rate 74, blood pressure 113/70, oxygen saturation is 100% on BiPAP, respiratory rate is 22. GENERAL: The patient is resting in bed. She is asleep. LUNGS: Show scattered wheezes and occasional rhonchi. HEART: Regularly irregular, consistent with her atrial fibrillation. ABDOMEN: Soft with hypoactive bowel sounds. EXTREMITIES: Capillary refill is less than 3 seconds. Pulses are 2+. ASSESSMENT AND PLAN: 1. Status post ground level fall. 2. Right femoral neck fracture. 3. Chronic obstructive pulmonary disease exacerbation. 4. Atrial fibrillation. 5. Hypertension. Plan will be to continue antihypertensives, BiPAP, Lasix for her CHF exacerbation and await the vacheriea team to clear the patient for a planned surgery for tomorrow. This was discussed with Dr. Echols on, he is aware of the patient's change in medical status.
[2017-11-06] MEDS: Ketorolac Tromethamine 30 MG/ML VIAL IVP SCH (03:10)
[2017-11-06] MEDS: Acetaminophen 1,000 MG in Premix Bag 1 BAG IVPB SCH ×2 (05:34→12:07)
[2017-11-06 07:29] LABS: #Basophils 0.1 thou/uL (0.0-0.2); #Lymphocytes 0.4 thou/uL (1.20-3.40); #Monocytes 0.1 thou/uL (0.11-0.59); #Neutrophils 5.3 thou/uL (1.40-6.50); %Basophils 1.7 % (0.0-1.0); %Eosinophils 0.3 % (0.0-10.0); %Lymphocytes 6.1 % (21.0-51.0); %Neutrophils 89.8 % (42.0-75.0); Hemoglobin 15.3 g/dL (12.0-16.0); Mean Corpuscular HGB CONC 34.3 g/dL (32.0-36.0); Mean Corpuscular Hemoglobin 35.1 pg (27.0-31.0); Mean Platelet Volume 7.9 fL (7.4-10.4); Platelet Count 191 thou/uL (130-400); RBC Distribution Width 12.6 % (11.5-14.5); Red Blood Cell (RBC) Count 4.35 mill/uL (4.20-5.40); White Blood Cell (WBC) Count 5.9 thou/uL (4.8-10.8)
[2017-11-06 08:16] LABS: Anion Gap 13 mmol/L (10-20); BUN (Urea Nitrogen) 16 mg/dL (9.8-20.1); Calc. Creatinine Clearance 47 mL/min (70-130); Calcium 9.4 mg/dL (7.8-10.44); Carbon Dioxide 22 mmol/L (23-31); Chloride 107 mmol/L (98-107); Estimated GFR-MDRD 76; Glucose 116 mg/dL (83-110); Potassium 4.2 mmol/L (3.5-5.1); Sodium 138 mmol/L (136-145)
[2017-11-06] MEDS: Polyethylene Glycol 3350 17 GM Packet PO SCH (08:56)
[2017-11-06] MEDS: Senokot S 8.6-50 MG TAB PO SCH ×2 (08:56→20:38)
[2017-11-06] MEDS: Digoxin 0.125 MG TAB PO SCH (09:01)
[2017-11-06] MEDS: Losartan 25 MG TAB PO SCH ×4 (09:02→21:49)
[2017-11-06] MEDS: Citalopram 20 MG TAB PO SCH (09:02)
[2017-11-06] MEDS ORDERED: CEFAZOLIN/Water 2 GM/20 ML SYRINGE SLOW IVP SCH (12:00)
[2017-11-06] MEDS ORDERED: Glycopyrrolate 0.2 MG/ML 5 ML SYRINGE ONE (16:55)
[2017-11-06] MEDS ORDERED: CEFAZOLIN/Water 2 GM/20 ML SYRINGE ONE (17:07)
[2017-11-06] MEDS ORDERED: Fentanyl 100 MCG/2 ML VIAL ONE (17:13)
[2017-11-06] MEDS ORDERED: Ketamine 50 MG/ML VIAL ONE (17:14)
--- NOTE | 2017-11-06 17:21 | PRG ---
DATE OF SERVICE: 11/06/2017 SUBJECTIVE: Ms. Coleman is an 81-year-old woman, who was post-injury day #2, status post ground-leve l fall where she suffered a right femoral neck fracture. The patient developed a sudden onset respir atory distress and was evaluated. She was found with acute COPD exacerbation secondary to acute alec estive heart failure. She was transferred to intermediate care unit. She was placed on gentle diure sis overnight. Steroid and bronchodilator therapy was also initiated. She was on noninvasive mechan ical ventilator support overnight. This morning, she is awake and alert, on nasal cannula oxygen. S he denies any dyspnea, chest pain, or syncope. PHYSICAL EXAMINATION: VITAL SIGNS: This morning included a blood pressure of 129/66, pulse 84, respiratory rate 15, temper ature 98.3 degrees Fahrenheit, oxygen saturation 99% on 2 liters by nasal cannula oxygen. HEENT EXAMINATION: Reveals normocephalic and atraumatic. Pupils equal, round, and reactive to light and accommodation. Extraocular muscles are intact bilaterally. She has no scleral icterus present. NECK: No jugular venous distention is noted. HEART: Reveals rate control, irregular rate and irregular rhythm. LUNGS: Clear to auscultation bilaterally. Breathing regular and unlabored. ABDOMEN: Soft, nontender, nondistended. Bowel sounds in all 4 quadrants appear normoactive. NEUROLOGICAL EXAMINATION: Reveals no focal deficits present. LABORATORY FINDINGS: Today includes a CBC with 5900 white blood cells, hemoglobin and hematocrit are 15.3 and 44.5 respectively. Platelet count is 191,000. Metabolic profile: Sodium 138, potassium is 4.2, chloride is 107, bicarbonate is 22, BUN 16, creatin ine is 0.73, glucose is 116, magnesium is 2.0, phosphorus is 4.0. IMPRESSION: 1. Post-injury day #2, status post ground-level fall. 2. Right femoral neck fracture. 3. Resolved acute congestive heart failure exacerbation. 4. Resolved acute chronic obstructive pulmonary disease exacerbation. PLAN: The patient is certainly hemodynamically stable to proceed with operative intervention to the hip fracture. Postoperatively, we will continue with physical and occupational therapy. Chemical VT E prophylaxis will be initiated postoperatively.
[2017-11-06] MEDS: Acetaminophen 500 MG TAB PO SCH (17:44)
[2017-11-06] MEDS ORDERED: Promethazine HCl 25 MG/ML VIAL IM PRN ×2 (18:45)
[2017-11-06] MEDS ORDERED: Ondansetron HCl/PF 4 MG/2 ML Vial IVP PRN ×2 (18:45)
[2017-11-06] MEDS ORDERED: Promethazine HCl 25 MG/ML VIAL SLOW IVP PRN ×2 (18:45)
--- NOTE | 2017-11-06 19:45 | RAD ---
UNILATERAL PROJECTION OF THE RIGHT HIP 11/06/17 INDICATION: Status post hemiarthroplasty. COMPARISON: Right hip radiographs dated 11/04/17. FINDINGS: Since the comparison examination there has been placement of a right hip hemiarthroplasty and cerclag e band. The prosthesis projects in the expected position. IMPRESSION: Postop right hip. POS: [facility]
[2017-11-06] MEDS: Atorvastatin Calcium 20 MG TAB PO SCH (20:38)
[2017-11-06] MEDS: traZODone HCl 50 MG TAB PO SCH (20:38)
--- NOTE | 2017-11-06 20:47 | OP ---
DATE OF OPERATION: 11/06/2017 OPERATION: Right hip bipolar hemiarthroplasty. PREOPERATIVE DIAGNOSIS: Right femoral neck fracture. POSTOPERATIVE DIAGNOSIS: Right femoral neck fracture. COMPLICATIONS: None. ESTIMATED BLOOD LOSS: 200 mL SURGEON: Alan Campbell M.D. NITROGEN OPERATOR: Wojciech Vogel PA-C. IMPLANTS: DePuy basic press-fit stem size 6, 28 mm x 47 mm bipolar head, +5 femoral head. INDICATIONS: Ms. Coleman is an 81-year-old female who fell. She fractured her right femoral neck. She was indicated for bipolar hemiarthroplasty to restore mobility and promote early mobilization. G oal of surgery is to prevent complications of prolonged bed rest. Risks have been reviewed and have been deemed appropriate and acceptable by the patient and her family. They wanted to proceed with [facility]. DESCRIPTION OF PROCEDURE: Ms. Coleman was identified in the preoperative holding area. Her correct extremity was marked. She was carried to the operating room. She was positioned supine. General an esthesia was then introduced. She was given intravenous antibiotics. The right lower extremity was prepped and draped in sterile fashion. At this point, we proceeded placing the patient in the decubitus position. We then made a posterior approach to the hip. We dissected down through the subcutaneous tissues to the fascia. The fascia w as opened. We exposed the short external rotators of the hip. We then subperiosteally divided these from the proximal femur. We then performed a capsulotomy. At this point, the broken femoral head w as removed. We removed any bony fragments and thoroughly irrigated. At this point, the femoral canal was prepped. We introduced the canal finder followed by lateralizat ion. We then began reaming up to a size 6. Next, we broach. Once we were at a size 4 broach, we no ticed a small crack in the proximal calcar. At this point, a cable was placed to stabilizing the magdalena car fracture. We then resumed broaching up to a size 6. This gave a good press-fit stem. We triale d off of this. A +5 femoral head gave the best leg length and stability. We then removed our trial components. Our final stem and bipolar head was placed. The hip was reduced. We then closed the ca psule and short external rotators with #5 Ethibond sutures through drill holes in the trochanter. We irrigated and then closed the fascia, subcutaneous tissue and skin. The patient was taken to the re covery room in good condition without complication.
--- NOTE | 2017-11-06 20:58 | RAD ---
SINGLE VIEW OF THE PELVIS: 11/06/17 INDICATION: Postop right hip hemiarthroplasty. IMPRESSION: Right hemiarthroplasty projects in the expected position. This is new from comparison dated 11/04/17. Cerclage band is seen surrounding the proximal right femur. There is a temperature probe seen within the region of the bladder. There is diffuse osteopenia. IMPRESSION: New right hip hemiarthroplasty. POS: [facility]
[2017-11-06] MEDS: Amlodipine 5 MG TAB PO SCH (21:48)
[2017-11-06] MEDS: traMADol HCl 50 MG TAB PO SCH (21:50)
[2017-11-06] MEDS: Sodium Chloride 0.9% 1,000 ML IV SCH (21:51)
--- NOTE | 2017-11-06 22:59 | PRG ---
DATE OF SERVICE: 11/06/2017 ATTENDING PHYSICIAN: Salvador Fermin DO SUBJECTIVE: Ms. Coleman is hospital day #3 status post ground level fall in which she sustained an i mpacted right femoral neck fracture. She was taken to the OR earlier today for fixation of his fract ure. She is now seen this evening postoperatively in the [facility]. She is resting comfortably and denies pain. PHYSICAL EXAMINATION: VITAL SIGNS: Temperature 98.3, pulse 68, respirations 17, O2 sat 95% on 3 liters nasal cannula, bloo d pressure 125/64. GENERAL: Elderly female resting in bed in no acute distress, arouses to name. HEENT: Atraumatic, normocephalic. PULMONARY: Bilateral Inspiratory wheezes. CARDIOVASCULAR: Irregular rhythm. Heart sounds normal. ABDOMEN: Soft, nontender, nondistended. EXTREMITIES: Moves all extremities well. Surgical dressing in place left hip, clean, dry, and intac t. NEUROLOGIC: GCS of 15. ASSESSMENT: 1. Status post ground level fall. 2. Postoperative day #0, status post fixation of fracture. 3. Chronic obstructive pulmonary disease, requiring BiPAP use at night. 4. Atrial fibrillation, chronic, present on admission. PLAN: 1. Continue BiPAP at night as needed. 2. Continue scheduled Tylenol and tramadol for analgesia. 3. Continue antibiotics for her Orthopedic Service. 4. Regular diet with Ensure supplementation. 5. Anticipate the patient to move to the surgical floor out of [facility] tomorrow.
[2017-11-07] MEDS: Acetaminophen 500 MG TAB PO SCH ×5 (00:30→23:52)
[2017-11-07] MEDS: CEFAZOLIN/Water 2 GM/20 ML SYRINGE SLOW IVP SCH ×2 (00:37→09:41)
[2017-11-07] MEDS: traMADol HCl 50 MG TAB PO SCH ×3 (05:53→22:22)
[2017-11-07] MEDS ORDERED: Sodium Chloride 0.9% 250 ML IV SCH (07:30)
[2017-11-07] MEDS ORDERED: Hydrocortisone Sod Succ/PF 100 mg/2 ml Vial IVP SCH (07:45)
[2017-11-07 07:49] LABS: #Lymphocytes 0.7 thou/uL (1.20-3.40); #Monocytes 0.7 thou/uL (0.11-0.59); #Neutrophils 9.9 thou/uL (1.40-6.50); %Basophils 0.1 % (0.0-1.0); %Eosinophils 0.2 % (0.0-10.0); %Lymphocytes 6.4 % (21.0-51.0); %Monocytes 6.1 % (0.0-10.0); %Neutrophils 87.3 % (42.0-75.0); Hemoglobin 12.9 g/dL (12.0-16.0); Mean Corpuscular HGB CONC 33.2 g/dL (32.0-36.0); Mean Corpuscular Hemoglobin 33.8 pg (27.0-31.0); Mean Platelet Volume 8.2 fL (7.4-10.4); Platelet Count 221 thou/uL (130-400); RBC Distribution Width 12.5 % (11.5-14.5); Red Blood Cell (RBC) Count 3.83 mill/uL (4.20-5.40); White Blood Cell (WBC) Count 11.4 thou/uL (4.8-10.8)
[2017-11-07 08:16] LABS: Anion Gap 10 mmol/L (10-20); BUN (Urea Nitrogen) 30 mg/dL (9.8-20.1); Calc. Creatinine Clearance 44 mL/min (70-130); Calcium 9.1 mg/dL (7.8-10.44); Carbon Dioxide 25 mmol/L (23-31); Chloride 105 mmol/L (98-107); Estimated GFR-MDRD 69; Glucose 132 mg/dL (83-110); Phosphorus 3.3 mg/dL (2.3-4.7); Potassium 3.9 mmol/L (3.5-5.1); Sodium 136 mmol/L (136-145)
[2017-11-07] MEDS: Polyethylene Glycol 3350 17 GM Packet PO SCH (09:41)
[2017-11-07] MEDS: Senokot S 8.6-50 MG TAB PO SCH ×2 (09:42→20:17)
[2017-11-07] MEDS: Citalopram 20 MG TAB PO SCH (09:43)
[2017-11-07] MEDS: Digoxin 0.125 MG TAB PO SCH (09:43)
[2017-11-07] MEDS: Losartan 25 MG TAB PO SCH ×4 (09:44→20:19)
--- NOTE | 2017-11-07 10:59 | PRG ---
DATE OF SERVICE: 11/07/2017 SUBJECTIVE: Ms. Coleman is an 81-year-old woman who is postoperative day #1, status post right hip b ipolar hemiarthroplasty. The patient reports adequate pain control. She is awake and alert this mor ricardo. Urinary output has been adequate. She did have preoperative acute COPD exacerbation which had since resolved. PHYSICAL EXAMINATION: VITAL SIGNS: Currently includes blood pressure 110/66, pulse is 86, respiratory rate is 17, temperat ure 97.9 degrees Fahrenheit, oxygen saturation is 97% on 3 liters by nasal cannula oxygen. HEENT: Examination reveals normocephalic and atraumatic. Pupils are equal, round, reactive to light and accommodation. Extraocular muscles are intact bilaterally. No sclerae icterus is present. Ora l mucosa is pink and moist. No lesions are noted. NECK: Supple. No palpable lymphadenopathy or thyromegaly present. HEART: Reveals regular rate and rhythm. No murmurs or gallops auscultated. LUNGS: Clear to auscultation bilaterally. Breathing is regular and unlabored. ABDOMEN: Soft, nontender, nondistended. Bowel sounds in all four quadrants appear normoactive. EXTREMITIES: Reveals 2+ radial and pedal pulses bilaterally. She has no ankle edema present. NEUROLOGIC: Examination reveals no focal deficits present. LABORATORY DATA: Laboratory findings today includes CBC with 11,400 white blood cells, hemoglobin an d hematocrit are stable at 12.9 and 38.8 respectively. Platelet count is 221,000. Metabolic profile : Sodium is 136, potassium is 3.9, chloride is 105, bicarbonate is 25, BUN 30, creatinine is 0.80, g lucose is 132, magnesium 2.0, and phosphorus is 3.3. IMPRESSION: 1. Postoperative day #1 status post right hip hemiarthroplasty. 2. Acute adrenal insufficiency. 3. Resolved acute chronic obstructive pulmonary disease exacerbation. 4. Resolved acute congestive heart failure exacerbation. PLAN: 1. Initiate physical and occupational therapy. 2. Advance diet and activity as tolerated. Continue with mineralocorticoid hormone steroid therapy until the patient is hemodynamically stable. 3. Continue to monitor the patient's urinary output as end point of resuscitation. The above findings and plan discussed with the patient who indicates understanding of information giv en. She will be transferred to general surgical floor in anticipation of discharge to a skilled faci lity unit post-discharge.
[2017-11-07] MEDS: Hydrocortisone Sod Succ/PF 100 mg/2 ml Vial IVP SCH ×3 (13:05→23:52)
[2017-11-07] MEDS: traZODone HCl 50 MG TAB PO SCH (20:16)
[2017-11-07] MEDS: Atorvastatin Calcium 20 MG TAB PO SCH (20:17)
[2017-11-07] MEDS: Amlodipine 5 MG TAB PO SCH (20:18)
--- NOTE | 2017-11-08 03:02 | PRG ---
DATE OF SERVICE: 11/08/2017 SUBJECTIVE: The patient is currently on the surgical floor. She is resting in bed comfortably. The nurses have reported no issues tonight, states that she is tolerating a diet, her pain is being cont rolled. OBJECTIVE: VITAL SIGNS: Temperature is 98.1, heart rate 90, blood pressure 96/57, respirations 15, oxygen satur ation is 96% on 2 L via nasal cannula. GENERAL: The patient is resting comfortably in bed. She is asleep and appears in no distress. ASSESSMENT: 1. Status post ground level fall. 2. Right femoral neck fracture status post open reduction internal fixation of same. PLAN: Will be to continue supportive care, physical and occupational therapy and await final [facility] nt decision.
[2017-11-08 05:06] LABS: #Lymphocytes 0.8 thou/uL (1.20-3.40); #Monocytes 0.8 thou/uL (0.11-0.59); #Neutrophils 8.2 thou/uL (1.40-6.50); %Eosinophils 0.2 % (0.0-10.0); %Lymphocytes 7.9 % (21.0-51.0); %Monocytes 7.7 % (0.0-10.0); %Neutrophils 84.2 % (42.0-75.0); Hemoglobin 11.7 g/dL (12.0-16.0); Mean Corpuscular HGB CONC 33.8 g/dL (32.0-36.0); Mean Corpuscular Hemoglobin 33.4 pg (27.0-31.0); Mean Corpuscular Volume 98.9 fl (81.0-99.0); Mean Platelet Volume 7.7 fL (7.4-10.4); Platelet Count 205 thou/uL (130-400); RBC Distribution Width 12.4 % (11.5-14.5); Red Blood Cell (RBC) Count 3.52 mill/uL (4.20-5.40); White Blood Cell (WBC) Count 9.8 thou/uL (4.8-10.8)
[2017-11-08 05:12] LABS: Anion Gap 10 mmol/L (10-20); BUN (Urea Nitrogen) 29 mg/dL (9.8-20.1); Calc. Creatinine Clearance 46 mL/min (70-130); Calcium 8.9 mg/dL (7.8-10.44); Carbon Dioxide 26 mmol/L (23-31); Chloride 103 mmol/L (98-107); Estimated GFR-MDRD 73; Glucose 110 mg/dL (83-110); Magnesium 2.1 mg/dL (1.6-2.6); Phosphorus 2.4 mg/dL (2.3-4.7); Potassium 4.1 mmol/L (3.5-5.1); Sodium 135 mmol/L (136-145)
[2017-11-08] MEDS: Acetaminophen 500 MG TAB PO SCH ×2 (05:42→11:57)
[2017-11-08] MEDS: traMADol HCl 50 MG TAB PO SCH ×2 (05:42→14:42)
[2017-11-08] MEDS: Hydrocortisone Sod Succ/PF 100 mg/2 ml Vial IVP SCH ×2 (05:43→11:57)
[2017-11-08] MEDS ORDERED: Bisacodyl 10 MG SUPP PR SCH (09:00)
[2017-11-08] MEDS ORDERED: Apixaban 2.5 MG TAB PO SCH ×4 (09:00)
[2017-11-08] MEDS: Senokot S 8.6-50 MG TAB PO SCH (09:23)
[2017-11-08] MEDS: Citalopram 20 MG TAB PO SCH (09:23)
[2017-11-08] MEDS: Polyethylene Glycol 3350 17 GM Packet PO SCH (09:23)
[2017-11-08] MEDS: Losartan 25 MG TAB PO SCH ×4 (09:23→09:26)
[2017-11-08] MEDS: Digoxin 0.125 MG TAB PO SCH (09:23)
[2017-11-08 11:38] VITALS: BMI 20.3
[2017-11-08 12:48] VITALS: BP 131/75; TEMP 98.1
--- NOTE | 2017-11-09 11:37 | DIS ---
DATE OF ADMISSION: 11/04/2017 DATE OF DISCHARGE: 11/08/2017 ADMITTING PHYSICIAN: Dr. Dennis. PRIMARY CARE PHYSICIAN: Dr. Fermin. ADMISSION DIAGNOSES: 1. Right femoral neck fracture. 2. Acute traumatic pain. 3. History of cerebrovascular accident. 4. History of paroxysmal atrial fibrillation. 5. History of chronic obstructive pulmonary disease. DISCHARGE DIAGNOSES: 1. Right femoral neck fracture. 2. Acute traumatic pain. 3. History of cerebrovascular accident. 4. History of paroxysmal atrial fibrillation. 5. History of chronic obstructive pulmonary disease with acute exacerbation. 6. Acute congestive heart failure exacerbation. 7. Acute adrenal insufficiency. PROCEDURE PERFORMED: Right hip hemiarthroplasty. HOSPITAL COURSE: Ms. Coleman is an 81-year-old female who resides at [facility]. She was brought by ground EMS to [facility] after suffering a ground level fall where she was evaluat ed and found to have an impacted right femoral neck fracture. The patient had a history of COPD, cor onary artery disease, paroxysmal atrial fibrillation as well as other medical comorbidities. Preoper atively, she developed respiratory distress with respirations of 28 and requiring supplementary oxyge n via nasal cannula. She had an elevated BNP of 759. She was started on labetalol, furosemide, Solu -Medrol, and DuoNebs and transferred to the [facility]. She underwent surgical fixation of her hip on hosp ital day #3. Postoperatively, the patient did require BiPAP at night. However, she was able to be w eaned off this and was transferred to the general surgical floor where she remained for the rest of h er stay. She was transferred to a senior living facility on 11/08/2017 in stable condition. DISCHARGE MEDICATIONS: The patient was discharged with all of her inpatient medications. Please see electronic medical record for details. DISCHARGE INSTRUCTIONS: Patient discharged with Orthopedic limitations including weightbearing as to lerated. NURSE INSTRUCTIONS: Regular diet with supplemental Ensure Enlive. THERAPY INSTRUCTIONS: Occupational and physical therapy. FOLLOWUP INSTRUCTIONS: The patient instructed to follow up with her primary care physician in 7 days . The patient also instructed to follow up with Dr. Alan Campbell in 14 days.
--- NOTE | 2017-11-11 08:40 | EKG ---
Test Reason : STAT EKG Blood Pressure : / mmHG Vent. Rate : 137 BPM Atrial Rate : 131 BPM P-R Int : 000 ms QRS Dur : 092 ms QT Int : 280 ms P-R-T Axes : 000 -30 210 degrees QTc Int : 422 ms atrial fibrillation Left axis deviation Marked ST abnormality, possible inferior subendocardial injury Abnormal ECG No previous ECGs available Confirmed by FAUSTO SANDERS MD ([id number]) on 11/11/2017 8:40:10 AM Referred By: Confirmed By:FAUSTO SANDERS MD
== END 2017-11-08 16:48 | DRG 470 ==
LOC: ERS 20:09 → SURG A 23:43 → IMCU/EMU 11-05 17:25 → SURG A 11-07 17:47
PROVIDERS: ADMIT Surgery; ATTEND Surgery
PROC: 0SRR0JA Replacement of Right Hip Joint, Femoral Surface with Synthetic Substitute, Uncemented, Open Approach (ICD-10-PCS; principal; 2017-11-06)
DX: S72.001A Fracture of unspecified part of neck of right femur, initial encounter for closed fracture (principal); J44.1 Chronic obstructive pulmonary disease with (acute) exacerbation; I48.0 Paroxysmal atrial fibrillation; I50.9 Heart failure, unspecified; W18.30XA Fall on same level, unspecified, initial encounter; Y92.128 Other place in nursing home as the place of occurrence of the external cause; Z88.2 Allergy status to sulfonamides; Z88.8 Allergy status to other drugs, medicaments and biological substances; Z79.01 Long term (current) use of anticoagulants; Z79.82 Long term (current) use of aspirin; I25.10 Atherosclerotic heart disease of native coronary artery without angina pectoris; E78.5 Hyperlipidemia, unspecified; E03.9 Hypothyroidism, unspecified; Z86.718 Personal history of other venous thrombosis and embolism; Z95.1 Presence of aortocoronary bypass graft; Z87.891 Personal history of nicotine dependence; S00.83XA Contusion of other part of head, initial encounter; G89.11 Acute pain due to trauma; I69.998 Other sequelae following unspecified cerebrovascular disease; I69.931 Monoplegia of upper limb following unspecified cerebrovascular disease affecting right dominant side; H53.9 Unspecified visual disturbance
CPT/HCPCS: 36415; 70450; 71045; 72125; 72170; 80048; 80053; 81003; 82533; 82553; 83735; 83880; 84100; 84484; 85025; 85610; 85730; 93005; 93010; 94640; 94660; 94760; 96361; 96374; 96375; A4353; G0390; G8978-GP-CM; G8979-GP-CK; G8987-GO-CM; G8988-GO-CK; J0131; J0360; J1720; J1885; J1940; J2060; J2920; J3010; J7620

== ENCOUNTER 2017-12-07 15:05 | Emergency (ER) | payer MEDICARE ==
--- NOTE | 2017-12-07 15:57 | RAD ---
RADIOGRAPH RIGHT FEMUR 2 VIEWS: 12/07/17 HISTORY: 82-year-old female with traumatic right thigh pain due to fall. FINDINGS: There is right hip metallic hardware replacing the femoral head and neck, with stem reaching the junc tion between the proximal and middle thirds of the diaphysis. No evidence of hardware loosening. No f racture. No dislocation of the hip. IMPRESSION: 1. No acute femoral fracture. 2. Status post right bipolar hip hemiarthroplasty. POS: [facility]
[2017-12-07 16:15] LABS: Bilirubin Negative (Negative); Blood, Urine Negative (Negative); Clarity CLEAR (Clear); Glucose, Urine (Dipstick) Negative (Negative); Leukocyte Negative (Negative); Nitrite Negative (Negative); Protein, Urine (Dipstick) Negative (Neg-Trace); Specific Gravity, Urine 1.008 (1.002-1.036); pH, Urine 7.5 (5.0-9.0)
== END 2017-12-07 18:36 | disposition home or self-care (01) ==
LOC: ERS 15:05
DX: S70.01XA Contusion of right hip, initial encounter (principal); I11.0 Hypertensive heart disease with heart failure; I50.9 Heart failure, unspecified; E03.9 Hypothyroidism, unspecified; I48.91 Unspecified atrial fibrillation; I25.10 Atherosclerotic heart disease of native coronary artery without angina pectoris; E78.5 Hyperlipidemia, unspecified; J43.9 Emphysema, unspecified; Z86.73 Personal history of transient ischemic attack (TIA), and cerebral infarction without residual deficits; Z87.891 Personal history of nicotine dependence; Z79.82 Long term (current) use of aspirin; Z79.899 Other long term (current) drug therapy; Z79.01 Long term (current) use of anticoagulants; W05.0XXA Fall from non-moving wheelchair, initial encounter; Y92.129 Unspecified place in nursing home as the place of occurrence of the external cause
CPT/HCPCS: 51701; 81003; 87086; A4353

== ENCOUNTER 2018-01-03 07:06 | Emergency (ER) | payer MEDICARE ==
[2018-01-03] MEDS ORDERED: cloNIDine 0.1 MG TAB ONE (07:56)
[2018-01-03 08:40] LABS: #Basophils 0.1 thou/uL (0.0-0.2); #Lymphocytes 1.1 thou/uL (1.20-3.40); #Monocytes 0.6 thou/uL (0.11-0.59); #Neutrophils 4.3 thou/uL (1.40-6.50); %Basophils 0.9 % (0.0-1.0); %Eosinophils 0.2 % (0.0-10.0); %Lymphocytes 18.7 % (21.0-51.0); %Monocytes 9.1 % (0.0-10.0); %Neutrophils 71.2 % (42.0-75.0); Hemoglobin 13.8 g/dL (12.0-16.0); Mean Corpuscular HGB CONC 32.2 g/dL (32.0-36.0); Mean Corpuscular Hemoglobin 33.2 pg (27.0-31.0); Platelet Count 192 thou/uL (130-400); RBC Distribution Width 12.7 % (11.5-14.5); Red Blood Cell (RBC) Count 4.17 mill/uL (4.20-5.40); White Blood Cell (WBC) Count 6.1 thou/uL (4.8-10.8)
[2018-01-03 08:41] LABS: Digoxin 0.66 ng/mL (0.8-2.0)
[2018-01-03 08:42] LABS: ALT (SGPT) 12 U/L (8-55); AST (SGOT) 12 U/L (5-34); Albumin 3.7 g/dL (3.4-4.8); Alkaline Phosphatase 78 U/L (40-150); Anion Gap 13 mmol/L (10-20); BUN (Urea Nitrogen) 13 mg/dL (9.8-20.1); Bilirubin, Total 0.7 mg/dL (0.2-1.2); Calc. Creatinine Clearance 0 mL/min (70-130); Calcium 9.5 mg/dL (7.8-10.44); Carbon Dioxide 24 mmol/L (23-31); Chloride 107 mmol/L (98-107); Estimated GFR-MDRD 85; Globulin 2.1 g/dL (2.4-3.5); Glucose 81 mg/dL (83-110); Protein, Total 5.8 g/dL (6.0-8.3); Sodium 140 mmol/L (136-145)
[2018-01-03 08:46] LABS: CKMB 1.4 ng/mL (0-6.6); Troponin I Less than 0.010 ng/mL (< 0.028)
[2018-01-03 09:17] LABS: Bilirubin Negative (Negative); Blood, Urine Small (Negative); Clarity CLOUDY (Clear); Glucose, Urine (Dipstick) Negative (Negative); Leukocyte Small (Negative); Nitrite Negative (Negative); Protein, Urine (Dipstick) Negative (Neg-Trace); Specific Gravity, Urine 1.008 (1.002-1.036); Urobilinogen 0.2 mg/dL (0.2-1.0); pH, Urine 7.5 (5.0-9.0)
[2018-01-03 09:21] LABS: Pathc Cast-AUWi Flag 16.71 (0-2.49)
[2018-01-03 09:30] LABS: Renal Epithelial 0-3 HPF (0-3); Transitional Epithelial 0-3 HPF (0-3)
[2018-01-03 09:31] LABS: Bacteria/HPF Rare-Few HPF (None Seen); Hyaline Casts/LPF 0-3 HYALINE CAST LPF (0-3 Hyaline); Manual Microscopic Reviewed? No Path Casts Seen
== END 2018-01-03 10:04 | disposition home or self-care (01) ==
LOC: ERS 07:06
DX: N39.0 Urinary tract infection, site not specified (principal); R00.1 Bradycardia, unspecified; J44.9 Chronic obstructive pulmonary disease, unspecified; I11.0 Hypertensive heart disease with heart failure; I50.9 Heart failure, unspecified; E03.9 Hypothyroidism, unspecified; I48.91 Unspecified atrial fibrillation; E78.5 Hyperlipidemia, unspecified; Z86.73 Personal history of transient ischemic attack (TIA), and cerebral infarction without residual deficits; Z79.899 Other long term (current) drug therapy; Z79.82 Long term (current) use of aspirin
CPT/HCPCS: 51701; 80053; 80162; 81003; 81015; 82553; 84484; 85025; 87086; 93005; 96360; A4353

== ENCOUNTER 2018-05-29 12:43 | Observation (INO) | payer MEDICARE ==
[2018-05-29 13:26] LABS: #Basophils 0.1 thou/uL (0.0-0.2); #Lymphocytes 0.8 thou/uL (1.20-3.40); #Monocytes 0.7 thou/uL (0.11-0.59); #Neutrophils 9.7 thou/uL (1.40-6.50); %Basophils 0.5 % (0.0-1.0); %Eosinophils 0.4 % (0.0-10.0); %Lymphocytes 7.3 % (21.0-51.0); %Monocytes 6.4 % (0.0-10.0); %Neutrophils 85.4 % (42.0-75.0); Hemoglobin 14.7 g/dL (12.0-16.0); Mean Corpuscular HGB CONC 32.9 g/dL (32.0-36.0); Mean Corpuscular Hemoglobin 32.6 pg (27.0-31.0); Mean Corpuscular Volume 99.2 fL (78.0-98.0); Mean Platelet Volume 8.4 fL (7.4-10.4); Platelet Count 218 thou/uL (130-400); RBC Distribution Width 12.6 % (11.5-14.5); Red Blood Cell (RBC) Count 4.52 mill/uL (4.20-5.40); White Blood Cell (WBC) Count 11.4 thou/uL (4.8-10.8)
--- NOTE | 2018-05-29 13:35 | RAD ---
PORTABLE CHEST 1 VIEW: Date: 05/29/18 Time: 1323 hours HISTORY: Fever. Atrial fibrillation. Dementia. FINDINGS: Comparison made with exam of 09/22/17. Changes of median sternotomy are again seen. The heart size is borderline. The aorta is tortuous. No lobar consolidation, pneumothoraces, abbie pulmonary edema, or pleural effusions are seen. IMPRESSION: No acute process. POS: [facility]
[2018-05-29] MEDS ORDERED: Piperacillin/Tazobactam 4.5 GM VIAL ONE (13:43)
[2018-05-29 13:50] LABS: CKMB 1.1 ng/mL (0-6.6); Troponin I Less than 0.010 ng/mL (< 0.028)
[2018-05-29 13:53] LABS: ALT (SGPT) 20 U/L (8-55); AST (SGOT) 19 U/L (5-34); Albumin 3.8 g/dL (3.4-4.8); Alkaline Phosphatase 69 U/L (40-150); Anion Gap 10 mmol/L (10-20); BUN (Urea Nitrogen) 18 mg/dL (9.8-20.1); Bilirubin, Total 0.7 mg/dL (0.2-1.2); Calc. Creatinine Clearance 0 mL/min (70-130); Calcium 9.4 mg/dL (7.8-10.44); Carbon Dioxide 24 mmol/L (23-31); Chloride 106 mmol/L (98-107); Estimated GFR-MDRD 74; Globulin 2.5 g/dL (2.4-3.5); Glucose 108 mg/dL (83-110); Potassium 4.2 mmol/L (3.5-5.1); Protein, Total 6.3 g/dL (6.0-8.3); Sodium 136 mmol/L (136-145)
[2018-05-29 14:46] LABS: Bilirubin Negative (Negative); Blood, Urine Negative (Negative); Clarity CLOUDY (Clear); Glucose, Urine (Dipstick) Negative (Negative); Leukocyte Negative (Negative); Nitrite Negative (Negative); Protein, Urine (Dipstick) Trace mg/dL (Neg-Trace); Specific Gravity, Urine 1.018 (1.002-1.036); pH, Urine 6.5 (5.0-9.0)
[2018-05-29 17:23] LABS: Troponin I 0.012 ng/mL (< 0.028)
--- NOTE | 2018-05-29 17:26 | HP ---
DATE OF ADMISSION: 05/29/2018 PRIMARY CARE PROVIDER: Cliff Mcgowan M.D. REASON FOR ADMISSION: Referred to [facility] by [facility] for c hest pain and fever. HISTORY OF PRESENT ILLNESS: The patient currently states she feels fine. Does not remember having a ny previous chest pain. Chest pain occurred for unknown length of time. She was noted to have a tem perature of 100.2. No other historical details were available. She was seen and examined in the [facility] room and referred to [facility]. She was noted there to have an elevated white cell count of 11.4 with an absolute neutrophilia. Chest x-ray was clear. Urinalysis was clear. No etiology of the fever having been found. PAST MEDICAL HISTORY: Pertinent for multi-infarct dementia; CVA, which affected her vision and the r ight upper extremity; atrial fibrillation; chronic obstructive pulmonary disease; coronary artery dis ease, post coronary artery bypass graft; dyslipidemia; hypertension; hypothyroidism; chronic anticoag ulation. PAST SURGICAL HISTORY: Includes coronary artery bypass graft, ORIF of right elbow fracture. CURRENT MEDICATIONS: Melatonin 6 mg at bedtime, trazodone 100 mg at bedtime, Lipitor 20 mg a day, di goxin 0.125 mg a day, levothyroxine 100 mcg a day, aspirin 81 mg a day, Cardizem extended release 240 mg once a day, ramipril 5 mg twice a day, Eliquis 2.5 mg twice a day, Celexa 20 mg a day, Breo Ellip ta 1 inhalation daily, DuoNeb 3 mL 4 times a day. ALLERGIES: METOPROLOL and SULFONAMIDES. SOCIAL HISTORY: Lives at [facility]. Smoked until about 10 years ago. No current drug or alcohol use. The patient is DNR after discussion with the son who is the surrogate decision maker with power of staff attorney. FAMILY HISTORY: Multiple members with hypertension. REVIEW OF SYSTEMS: Unable to obtain due to the patient's lack of recent memory. She currently has n o complaints whatsoever. PHYSICAL EXAMINATION: GENERAL: She is a small asthenic woman, in no acute distress. She is oriented to person only. Fami ly at bedside. VITAL SIGNS: Blood pressure 152/74, pulse 71, respirations 28, temperature currently 98.9 after Tyle nol, room air saturation was 94. HEENT: Reveal pupils equal, round and reactive. Extraocular movements grossly intact. Sclerae are white. Tympanic membranes clear. Nose is clear. Mouth, upper and lower dentures. No oral lesions. NECK: No jugular venous distention, adenopathy or thyromegaly. LUNGS: Chest hyperresonant with a few scattered rhonchi, but otherwise clear to auscultation. CARDIAC: Heart had an irregularly irregular rhythm. No murmurs were appreciated. No gallops. ABDOMEN: Soft. Bowel sounds normal. No hepatosplenomegaly, no mass, no rebound. EXTREMITIES: Reveal no cyanosis, clubbing or edema. PULSES: Carotid, radial, femoral and dorsalis pedis pulses are palpable. The pedal pulses are somew hat diminished compared to the other pulses. SKIN: Warm and dry without bruises or rash. HEME/LYMPH: Reveals no tender or swollen lymph nodes in the axilla, inguinal or cervical area. NEUROLOGICAL: Cranial nerves II-XII are intact. Deep tendon reflexes are symmetric. Moves all extr emities. IMAGING: Chest x-ray, no cardiomegaly, CHF or infiltrate. She does have postsurgical changes in the sternum with calcifications in the aortic knob arch and deviation of the trachea around the same, re viewed by me. EKG, atrial fibrillation, left ventricular hypertrophy with repolarization abnormality , left axis deviation, reviewed by me. LABORATORY DATA: Urinalysis is clear. Comp metabolic profile is amazingly normal. Troponin is norm al. CBC shows a normal hemoglobin at 14.7, normal platelets at 218,000 and minimally increased white count of 11.4. ADMITTING DIAGNOSES: 1. Systemic inflammatory response syndrome with fever, leukocytosis. 2. Atrial fibrillation with rapid ventricular response while she was febrile. It is now normal with normalization of her fever. 3. Multi-infarct dementia. 4. History of cerebrovascular accident without residual. 5. Chronic obstructive pulmonary disease. 6. Coronary artery disease. 7. Dyslipidemia. 8. Hypertension. 9. Hypothyroidism. 10. Chronic anticoagulation. PLAN: Cultures have been drawn. Serial troponins will be done in view of her chest discomfort and h istory of coronary artery disease. No antibiotic will be started as I see no evidence of an infectiv e process and she is currently afebrile. Home medicines will be reinstituted. CBC, basic metabolic profile will be repeated in the morning. She will be reevaluated. I have discussed with the son dayo jansen that she will go back to [facility] tomorrow.
[2018-05-29] MEDS ORDERED: HYDROcodone/Acetaminophen 5/325 mg Tablet PO PRN ×2 (19:38)
[2018-05-29] MEDS ORDERED: Ondansetron PF 4 MG/2 ML Vial IVP PRN ×2 (19:38→20:23)
[2018-05-29] MEDS ORDERED: Ondansetron ODT 4 MG TAB SL PRN (19:38)
[2018-05-29] MEDS ORDERED: Acetaminophen 325 MG TAB PO PRN ×2 (19:38→20:23)
[2018-05-29] MEDS ORDERED: traZODone HCl 50 MG TAB PO PRN (20:23)
[2018-05-29 21:06] LABS: Troponin I 0.019 ng/mL (< 0.028)
[2018-05-30] MEDS: Apixaban 2.5 MG TAB PO SCH ×2 (00:13→09:16)
[2018-05-30 05:24] LABS: #Eosinphils 0.1 thou/uL (0.0-0.7); #Lymphocytes 1.2 thou/uL (1.20-3.40); #Monocytes 0.5 thou/uL (0.11-0.59); %Basophils 0.2 % (0.0-1.0); %Eosinophils 2.2 % (0.0-10.0); %Lymphocytes 21.4 % (21.0-51.0); %Neutrophils 68.3 % (42.0-75.0); Hemoglobin 13.1 g/dL (12.0-16.0); Mean Corpuscular HGB CONC 32.6 g/dL (32.0-36.0); Mean Corpuscular Hemoglobin 32.8 pg (27.0-31.0); Mean Platelet Volume 8.3 fL (7.4-10.4); Platelet Count 183 thou/uL (130-400); RBC Distribution Width 12.5 % (11.5-14.5); Red Blood Cell (RBC) Count 4.01 mill/uL (4.20-5.40); White Blood Cell (WBC) Count 5.8 thou/uL (4.8-10.8)
[2018-05-30 05:37] LABS: Anion Gap 7 mmol/L (10-20); BUN (Urea Nitrogen) 10 mg/dL (9.8-20.1); Calc. Creatinine Clearance 54 mL/min (70-130); Calcium 8.7 mg/dL (7.8-10.44); Carbon Dioxide 24 mmol/L (23-31); Chloride 108 mmol/L (98-107); Estimated GFR-MDRD 90; Glucose 76 mg/dL (83-110); Potassium 3.8 mmol/L (3.5-5.1); Sodium 135 mmol/L (136-145)
--- NOTE | 2018-05-30 07:27 | DIS ---
DATE OF ADMISSION: 05/29/2018 DATE OF DISCHARGE: 05/30/2018 TRANSFER OF CARE PRIMARY CARE PROVIDER: Cliff Mcgowan M.D. DISCHARGE DISPOSITION: Discharged back to [facility]. FINAL DIAGNOSES: Chest pain unspecified, fever, coronary artery disease, atrial fibrillation, multi- infarct dementia, chronic obstructive pulmonary disease, dyslipidemia, hypertension, hypothyroidism, chronic anticoagulation. DISCHARGE MEDICATIONS: Melatonin 6 mg at bedtime, trazodone 100 mg at bedtime, Lipitor 20 mg a day, digoxin 0.125 mg a day, levothyroxine 100 mcg a day, aspirin 81 mg a day, Cardizem 240 once a day, ra mipril 5 mg twice a day, Eliquis 2.5 mg twice a day, Celexa 20 mg a day, Breo Ellipta one inhalation daily, DuoNeb 3 mL 4 times a day nebulizer. ALLERGIES: To METOPROLOL and SULFONAMIDES. CODE STATUS: DNR, has a directive. DIET: Heart healthy. PENDING AT THE TIME OF DISCHARGE: Cultures were drawn. They are pending. HOSPITAL COURSE: The patient was brought to the emergency room from [facility] after h aving a complaint of fever, having an episode of elevated temperature to 102 with tachycardia with th at. She was given Tylenol in the emergency room. When her temperature came down to normal, her puls e came down to normal. When I saw her, she had no complaints whatsoever. Family was present. Comp metabolic profile normal. Cardiac enzymes normal x3. Initial white count was 11.4, followup is 5.8. Chest x-ray was clear at this point. The patient is asymptomatic. Vital signs are stable. Cardia c exam reveals her atrial fibrillation. Chest exam is clear. She is being discharged back to the [facility] for continuing care. No consultations. No procedures. Follow up in 7 days b y PCP.
[2018-05-30 08:42] VITALS: BP 183/96; TEMP 98.8
[2018-05-30] MEDS ORDERED: Prevnar 13-Val Conj/PF 0.5 ML SYRINGE IM ONE (09:00)
== END 2018-05-30 11:30 ==
LOC: ERS 12:43 → 2NO 20:18
PROVIDERS: ADMIT Internal Medicine; ATTEND Internal Medicine
DX: R07.9 Chest pain, unspecified (principal); R50.9 Fever, unspecified; I25.10 Atherosclerotic heart disease of native coronary artery without angina pectoris; J44.9 Chronic obstructive pulmonary disease, unspecified; E78.5 Hyperlipidemia, unspecified; I48.91 Unspecified atrial fibrillation; I10 Essential (primary) hypertension; E03.9 Hypothyroidism, unspecified; F01.50 Vascular dementia, unspecified severity, without behavioral disturbance, psychotic disturbance, mood disturbance, and anxiety; Z79.01 Long term (current) use of anticoagulants; Z79.899 Other long term (current) drug therapy; Z88.2 Allergy status to sulfonamides; Z88.8 Allergy status to other drugs, medicaments and biological substances; Z87.891 Personal history of nicotine dependence
CPT/HCPCS: 51701; 71045; 80048; 80053; 81003; 82550; 82553; 83605; 84484 ×2; 85025 ×2; 87040; 87086; 87804 ×2; 93005; 96365; 99285; G0378; 36415; 90471; 90670; A4353; G0009; J2543

== ENCOUNTER 2018-10-19 21:53 | Inpatient (IN) | payer MEDICARE, MEDICAID ==
[2018-10-19 22:30] LABS: #Eosinphils 0.3 thou/uL (0.0-0.7); #Lymphocytes 2.1 thou/uL (1.20-3.40); #Monocytes 0.8 thou/uL (0.11-0.59); #Neutrophils 6.6 thou/uL (1.40-6.50); %Basophils 0.5 % (0.0-1.0); %Eosinophils 3.3 % (0.0-10.0); %Lymphocytes 21.1 % (21.0-51.0); %Monocytes 7.9 % (0.0-10.0); %Neutrophils 67.4 % (42.0-75.0); Hemoglobin 13.5 g/dL (12.0-16.0); Mean Corpuscular HGB CONC 33.8 g/dL (32.0-36.0); Mean Corpuscular Hemoglobin 34.5 pg (27.0-31.0); Mean Platelet Volume 7.4 fL (7.4-10.4); Platelet Count 262 thou/uL (130-400); RBC Distribution Width 13.4 % (11.5-14.5); White Blood Cell (WBC) Count 9.8 thou/uL (4.8-10.8)
[2018-10-19 22:51] LABS: ALT (SGPT) 18 U/L (8-55); AST (SGOT) 16 U/L (5-34); Albumin 3.4 g/dL (3.4-4.8); Alkaline Phosphatase 59 U/L (40-150); Anion Gap 10 mmol/L (10-20); BUN (Urea Nitrogen) 21 mg/dL (9.8-20.1); Bilirubin, Total 0.9 mg/dL (0.2-1.2); Calc. Creatinine Clearance 0 mL/min (70-130); Calcium 9.5 mg/dL (7.8-10.44); Carbon Dioxide 27 mmol/L (23-31); Chloride 103 mmol/L (98-107); Estimated GFR-MDRD 75; Globulin 2.4 g/dL (2.4-3.5); Glucose 85 mg/dL (83-110); Lipase 33 U/L (8-78); Potassium 4.2 mmol/L (3.5-5.1); Protein, Total 5.8 g/dL (6.0-8.3); Sodium 136 mmol/L (136-145)
--- NOTE | 2018-10-19 23:41 | CT ---
CT HEAD WITHOUT CONTRAST: 10/19/18 Multiple axial tomograms obtained through the head without IV enhancement. INDICATIONS: [facility]. Comparison made to head CT of 11/04/17. FINDINGS/IMPRESSION: There is cortical atrophy. There is ventriculomegaly. Evidence of old right occipital infarct. Chroni c ischemic white matter changes. A left frontal lobe infarct with encephalomalacia. No acute hemorrhage or mass. No significant change from the prior CT of 11/04/17. POS: [facility]
--- NOTE | 2018-10-19 23:56 | RAD ---
FAP pelvis: History is fall. Right hip prosthesis. Left hip appears intact. The bony pelvis appears intact. Evidence of old right rami fractures appear stable when compared to exam of 11/06/2017. IMPRESSION: No acute finding.
[2018-10-20 00:02] LABS: Bilirubin Negative (Negative); Blood, Urine Large (Negative); Clarity CLOUDY (Clear); Glucose, Urine (Dipstick) Negative (Negative); Leukocyte Large (Negative); Nitrite Positive (Negative); Protein, Urine (Dipstick) Trace mg/dL (Neg-Trace); Specific Gravity, Urine 1.019 (1.002-1.036); Urobilinogen 0.2 mg/dL (0.2-1.0)
[2018-10-20 00:04] LABS: Bacteria/HPF 1+ HPF (None Seen); Hyaline Casts/LPF 4-6 HYALINE CAST LPF (0-3 Hyaline); Pathc Cast-AUWi Flag 1.08 (0-2.49); RBC/HPF 21-50 HPF (0-3); Squamous Epithelial None Seen HPF (0-3)
[2018-10-20] MEDS ORDERED: cefTRIAXone\\ROCEPHIN 1 GM VIAL ONE (00:24)
[2018-10-20] MEDS ORDERED: Sodium Chloride 0.9% 500 ML IVPB SCH (01:45)
[2018-10-20] MEDS ORDERED: Sodium Chloride 0.45% 1,000 ML IV SCH ×2 (01:45→11:45)
[2018-10-20 02:23] VITALS: BMI 15.9
[2018-10-20 06:40] LABS: #Basophils 0.1 thou/uL (0.0-0.2); #Eosinphils 0.2 thou/uL (0.0-0.7); #Lymphocytes 1.9 thou/uL (1.20-3.40); #Monocytes 0.6 thou/uL (0.11-0.59); #Neutrophils 5.3 thou/uL (1.40-6.50); %Basophils 1.1 % (0.0-1.0); %Eosinophils 2.7 % (0.0-10.0); %Lymphocytes 23.9 % (21.0-51.0); %Monocytes 7.1 % (0.0-10.0); %Neutrophils 65.3 % (42.0-75.0); Hemoglobin 13.4 g/dL (12.0-16.0); Mean Corpuscular HGB CONC 33.2 g/dL (32.0-36.0); Mean Corpuscular Hemoglobin 34.1 pg (27.0-31.0); Mean Platelet Volume 7.7 fL (7.4-10.4); Platelet Count 253 thou/uL (130-400); RBC Distribution Width 13.7 % (11.5-14.5); Red Blood Cell (RBC) Count 3.94 mill/uL (4.20-5.40); White Blood Cell (WBC) Count 8.1 thou/uL (4.8-10.8)
[2018-10-20] MEDS ORDERED: Acetaminophen 325 MG TAB PO PRN (11:45)
[2018-10-20] MEDS ORDERED: Ondansetron ODT 4 MG TAB PO PRN (11:45)
[2018-10-20] MEDS ORDERED: Ondansetron PF 4 MG/2 ML Vial IVP PRN (11:45)
[2018-10-20] MEDS ORDERED: Senokot S 8.6-50 MG TAB PO PRN (11:45)
[2018-10-20] MEDS ORDERED: Calcium Carbonate 500 MG ChewTAB PO PRN (11:45)
--- NOTE | 2018-10-20 13:30 | HP ---
CHIEF COMPLAINT: Blood in stool. HISTORY OF PRESENT ILLNESS: The following history was obtained from review of medical record and also from talking to patient's relatives. The patient is an 82-year-old female with known history of dementia, COPD, coronary artery disease , prior CVA; atrial fibrillation, on Eliquis and coronary artery disease, on aspirin, pen[facility] resident, who was [facility] the [facility] due to complaint of blood in stool. The patient reportedly was noted to have bloody stool about an hour prior to presentation to the emergency room. Of note, it was also reported that the patient had a fall on October 12 and was noted to have maroon stool then, but has had no further bloody stools since then until yesterday. Noteworthy also patient was recently admitted at [facility] for treatment of shingles and urinary tract infection and has completed antimicrobials. The patient also insisted to have some agitation for which she gets Xanax and got a dose of Xanax prior to presentation to the emergency room. Relatives reported that the patient is unusually drowsy and less responsive. Further evaluation in the emergency room showed features of urinary tract infection, hence the patient was started on antibiotics. Since admission, the patient has not had any bowel movement. She denied any discomfort, chest pain. She also denied dysuria, fever, vomiting. PAST MEDICAL HISTORY: 1. COPD. 2. Dementia. 3. Congestive heart failure. 4. Hypothyroidism. 5. Atrial fibrillation. 6. Chronic anticoagulation with Eliquis. 7. Coronary artery disease. 8. Hyperlipidemia. 9. Hypertension. 10. Recent facial shingles. 11. Recurrent falls. 12. Prior cerebrovascular accident and TIA. 13. Recurrent UTI. PAST SURGICAL HISTORY: 1. Right elbow fracture repair. 2. CABG. FAMILY HISTORY: Reviewed, but noncontributory. SOCIAL HISTORY: The patient is a penit[facility]iary resident. Former smoker, who quit about 10 years ago. Denied recreational alcohol or smoking. ALLERGIES: METOPROLOL. CURRENT HOME MEDICATIONS: 1. Acetaminophen 650 mg q.8 p.r.n. for pain. 2. Albuterol sulfate nebulization every 6 hours p.r.n. 3. Xanax 0.25 mg b.i.d. p.r.n. for anxiety. 4. Amlodipine 10 mg p.o. daily. 5. Loperamide one tablet p.r.n. for loose stool. 6. Aspirin 81 mg p.o. daily. 7. Atorvastatin 20 mg p.o. daily at bedtime. 8. Breo Ellipta inhalation once daily. 9. Cardizem LA 240 mg p.o. daily. 10. Citalopram 20 mg p.o. daily. 11. dextrometh/guafenafesin q.4 to 6 p.r.n. for cough and congestion. 12. Digoxin 125 mcg p.o. daily, to be held for heart rate less than 60. 13. Docusate sodium 100 mg b.i.d. 14. Dulcolax suppository 10 mg per rectum p.r.n. for constipation. 15. Eliquis 2.5 mg p.o. b.i.d. 16. Erythromycin ointment topically four times daily. 17. Ipratropium albuterol nebulization four times daily. 18. Ketoconazole cream once daily, apply to the right side of face. 19. Levothyroxine 100 mcg p.o. daily. 20. Clotrimazole-betamethasone twice daily, apply to perineum. 21. Melatonin 6 mg p.o. daily at bedtime. 22. MiraLAX 17 g once daily p.r.n. for constipation. 23. Nystatin powder topical, apply three times daily to perineal area. 24. Ramipril 10 mg p.o. daily at bedtime. 25. Trazodone 100 mg p.o. daily at bedtime. 26. Zofran 8 mg as needed q.8h to 12 hours for nausea and vomiting. REVIEW OF SYSTEMS: This is grossly limited due to the patient's condition. The patient however denied chest pain, nausea, vomiting, abdominal pain, dysuria, fever, cough, or shortness of breath. All other components of review of system were negative. PHYSICAL EXAMINATION: VITAL SIGNS: Temperature 97.9, pulse 76, respiratory rate 14, SpO2 of 98% on room air, and blood pressure 147/76. GENERAL: Chronically ill-looking elderly female in no obvious distress. The patient is sleeping, but easily arousable. Oral mucosa is moist. HEENT: Normocephalic and atraumatic. Pupils are equal and reacting to light. Oral mucosa is moist. NECK: Supple with no obvious mass. RESPIRATORY: Fair air entry bilaterally with no obvious crackle or rhonchi or use of accessory muscles. CARDIOVASCULAR: Irregularly irregular rhythm and rate. No obvious murmur was appreciated. GI: Abdomen is flat, soft, nontender, and nondistended with normal bowel sounds. EXTREMITIES: Cachectic with no obvious edema. Some scattered bruises noted. Mild fixed flexion deformity at the right elbow noted. NEUROLOGIC: This patient is sleeping, but easily arousable. When awake, the patient is oriented to person, and place. Cranial nerves II through XII grossly intact. The patient moves all extremities. Memory lapse is appreciated. DIAGNOSTIC DATA: CBC of October 19, 2018 showed WBC count of 9.8, hemoglobin of 13.5, MCV of 102, and platelet of 262. Repeat CBC today, October 20, 2018 showed WBC count of 8.1, hemoglobin of 13.4, MCV of 103, and platelet of 253. CMP of October 19, 2018 showed sodium 136, potassium 4.2, chloride 103, CO2 of 27, anion gap 10, BUN 21, creatinine 0.74, glucose 85, calcium 9.5, total bilirubin 0.9, AST 16, ALT 18, alkaline phosphatase 59, total protein 5.8, and albumin 3.4. Urinalysis performed on October 19, 2018 showed large blood with positive nitrite and large leukocyte esterase. Microscopy showed RBC of 21 to 50 and WBC greater than 50 to [id number]. CT scan of the brain performed on October 19, 2018 showed cortical atrophy and ventriculomegaly. Evidence of old right occipital infarct and chronic ischemic white matter changes were noted. As well as the left frontal lobe infarct with encephalomalacia. However, there is no acute hemorrhage or mass noted and the CT scan was unchanged from prior imaging of November 04, 2017. Pelvic x-ray performed on October 19, 2018 showed right hip prosthesis, left hip appears intact and the bony pelvis appears intact as well. Evidence of old right rami fractures appear stable when compared to chest x-ray of November 06, 2017. No acute finding was noted. ASSESSMENT: 1. Acute encephalopathy: Most likely due to toxic and metabolic encephalopathy from urinary tract infection and medication. The patient reportedly is on p.r.n. Xanax and may have received one dose prior to presentation to the emergency room. Mental status is improving, but patient's daughter in-law stated that she is not yet back to baseline. 2. Urinary tract infection. 3. Hematochezia: Hemoglobin so far is stable and the patient has not had any bloody stool since this admission. 4. Chronic atrial fibrillation, on chronic anticoagulation with Eliquis. 5. History of dementia. 6. Chronic congestive heart failure: Seems compensated. 7. Chronic obstructive pulmonary disease: Seems compensated. 8. Hyperlipidemia. 9. Hypertension, on treatment. 10. History of prior cerebrovascular accident and transient ischemic attacks. 11. Physical deconditioning. 12. Recurrent falls. PLAN: 1. We will continue the patient on antibiotic therapy with ceftriaxone while waiting for urine culture. 2. We will restart Cardizem and digoxin for rate control with holding parameters. 3. We will also start the patient on clear liquid diet as well as oral supplementation. 4. We will also restart home medications including levothyroxine. 5. We will hold aspirin and Eliquis for now. 6. I had a discussion with the patient's son who is the POA and the daughter-in- law at bedside and they are really not inclined to having the patient go through colonoscopy at this time. They would prefer to have the patient discharged back to the [facility] as soon as possible. They will also want the patient back on Eliquis and aspirin as soon as possible once there is no further bleeding. 7. We will discontinue GI consult placed earlier on. 8. We will also monitor hemoglobin and hematocrit. 9. We will advance diet as tolerated. 10. Ethics: The patient is do not resuscitate and the son is the surrogate decision maker. Job ID: [id number]
[2018-10-20 18:15] LABS: Hemoglobin 13.9 g/dL (12.0-16.0)
[2018-10-20] MEDS: Atorvastatin Calcium 20 MG TAB PO SCH (21:28)
[2018-10-20] MEDS: Melatonin 3 MG TAB PO SCH (21:28)
[2018-10-21] MEDS: Levothyroxine Sodium 100 MCG TAB PO SCH (05:22)
[2018-10-21 07:20] LABS: Band 13 % (5-11); Hemoglobin 13.8 g/dL (12.0-16.0); Lymphocytes 15 % (21-51); MDiff Complete? YES; Mean Corpuscular HGB CONC 34.2 g/dL (32.0-36.0); Mean Corpuscular Hemoglobin 34.7 pg (27.0-31.0); Mean Platelet Volume 7.8 fL (7.4-10.4); Metamyelocyte 2 % (0-0); Monocytes 2 % (0-10); Neutrophil 68 % (42-75); Platelet Count 284 thou/uL (130-400); Platelet Morphology Comment Appears Adequate; RBC Distribution Width 13.4 % (11.5-14.5); Red Blood Cell (RBC) Count 3.99 mill/uL (4.20-5.40); White Blood Cell (WBC) Count 9.5 thou/uL (4.8-10.8)
[2018-10-21] MEDS: Digoxin 0.125 MG TAB PO SCH (08:55)
[2018-10-21] MEDS: Citalopram 20 MG TAB PO SCH (08:55)
--- NOTE | 2018-10-21 16:03 | PDOC.PN ---
- Subjective Encounter Start Date: 10/21/18 Encounter Start Time: 13:00 Subjective: awake, responds well to verbal stimuli -: is eating better per daughter at bedside - Objective Resuscitation Status - Order Detail: 10/20/18 06:35 Resuscitation Status Routine Resuscitation Status: DNAR: NO Resuscitation Discussed with: DR. PAREDES AND WITH PT SON AND DAUGHTER IN LAW Additional comments: PT ALSO HAS OOH DNAR MAR Reviewed: Yes Vital Signs & Weight: Vital Signs (12 hours) Temp Pulse Resp BP Pulse Ox 10/21/18 15:00 98.0 F 78 18 147/79 H 94 L 10/21/18 14:27 80 16 94 L 10/21/18 11:34 98.7 F 80 18 147/78 H 95 10/21/18 10:41 100 95 10/21/18 08:56 100 10/21/18 08:55 100 10/21/18 08:02 97.5 F L 100 18 155/87 H 95 10/21/18 07:04 85 16 95 10/21/18 04:34 98.1 F 85 18 155/93 H 95 Weight Admit Weight 89 lb 15.883 oz Weight 89 lb 15.883 oz I&O: 10/20/18 10/21/18 10/22/18 06:59 06:59 06:59 Intake Total 740 360 Balance 740 360 Result Diagrams: 10/21/18 06:20 10/19/18 22:21 Phys Exam - Physical Examination HEENT: PERRLA, moist MMs Neck: no JVD, supple Respiratory: no wheezing, no rales Cardiovascular: RRR, no significant murmur Gastrointestinal: soft, non-tender, positive bowel sounds Musculoskeletal: no edema, pulses present Neurological: non-focal, moves all 4 limbs Dx/Plan (1) Acute encephalopathy Code(s): G93.40 - ENCEPHALOPATHY, UNSPECIFIED Status: Resolved (2) UTI (urinary tract infection) Status: Acute Qualifiers: Urinary tract infection type: acute cystitis Hematuria presence: without hematuria Qualified Code(s): N30.00 - Acute cystitis without hematuria (3) GI bleed Code(s): K92.2 - GASTROINTESTINAL HEMORRHAGE, UNSPECIFIED Status: Resolved Qualifiers: GI bleed type/associated pathology: unspecified gastrointestinal hemorrhage type Qualified Code(s): K92.2 - Gastrointestinal hemorrhage, unspecified Comment: stable h/h (4) A-fib Code(s): I48.91 - UNSPECIFIED ATRIAL FIBRILLATION Status: Chronic Qualifiers: Comment: Rate controlled. Continue dogoxin, diltiazem, Eliquis and ASA. (5) CVA (cerebral vascular accident) Code(s): I63.9 - CEREBRAL INFARCTION, UNSPECIFIED Status: Chronic Qualifiers: Comment: h/o right occipital and left frontal cva (6) CAD (coronary artery disease) Code(s): I25.10 - ATHSCL HEART DISEASE OF [place] CORONARY ARTERY W/O ANG PCTRS Status: Chronic Qualifiers: Coronary Disease-Associated Artery/Lesion type: [place] artery [place] vs. transplanted heart: [place] heart Associated angina: without angina Qualified Code(s): I25.10 - Atherosclerotic heart disease of [place] coronary artery without angina pectoris (7) COPD (chronic obstructive pulmonary disease) Status: Chronic Qualifiers: (8) Chronic anticoagulation Code(s): Z79.01 - USP (CURRENT) USE OF ANTICOAGULANTS Status: Chronic Comment: On ASA and Eliquis - Plan d/w patient and daughter -: had recent uti and finished 10 days of antibiotics -: was lethargic till last night, is better this am -: await urine cultures, switch to inpatient -: continue lipitor, dig, cardizem, ramipril * . h/h is stable, no further bleeding, ?hemorrhoidal. urine is growing pseudomonas 100k cfu/ml, need to see if she has resistance. Review of Systems - Medications/Allergies Allergies/Adverse Reactions: Allergies Allergy/AdvReac Type Severity Reaction Status Date / Time metoprolol tartrate Allergy Verified 10/20/18 01:13 [From Lopressor] Sulfa (Sulfonamide Allergy Verified 10/20/18 01:13 Antibiotics) Medications: Current Medications Acetaminophen (Tylenol) 650 mg PO Q4H PRN PRN Reason: Headache/Fever/Mild Pain (1-3) Albuterol/Ipratropium (Duoneb) 3 ml NEB QID-RT [facility] Last Admin: 10/21/18 14:27 Dose: 3 ml Atorvastatin Calcium (Lipitor) 20 mg PO HS HYACINTH Last Admin: 10/20/18 21:28 Dose: 20 mg Calcium Carbonate (Tums) 1,000 mg PO Q4H PRN PRN Reason: Heartburn or Indigestion Citalopram Hydrobromide (Celexa) 20 mg PO DAILY [facility] Last Admin: 10/21/18 08:55 Dose: 20 mg Digoxin (Lanoxin) 0.125 mg PO DAILY [facility] Last Admin: 10/21/18 08:55 Dose: 0.125 mg Diltiazem HCl (Cardizem Cd) 240 mg PO DAILY [facility] Last Admin: 10/21/18 08:56 Dose: 240 mg Levothyroxine Sodium (Synthroid) 100 mcg PO 0600 [facility] Last Admin: 10/21/18 05:22 Dose: 100 mcg Melatonin (Melatonin) 6 mg PO HS [facility] Last Admin: 10/20/18 21:28 Dose: 6 mg Ondansetron HCl (Zofran Odt) 4 mg PO Q6H PRN PRN Reason: Nausea/Vomiting Ondansetron HCl (Zofran) 4 mg IVP Q6H PRN PRN Reason: Nausea/Vomiting Quetiapine Fumarate (Seroquel) 12.5 mg PO BIDPRN PRN PRN Reason: Anxiety/Agitation Ramipril (Altace) 10 mg PO [facility] Senna/Docusate Sodium (Senokot S) 2 tab PO BIDPRN PRN PRN Reason: Constipation
[2018-10-21] MEDS ORDERED: ALPRAZolam 0.25 MG TAB PO PRN (19:47)
[2018-10-21] MEDS: Atorvastatin Calcium 20 MG TAB PO SCH (20:23)
[2018-10-21] MEDS: Melatonin 3 MG TAB PO SCH (20:23)
[2018-10-21] MEDS ORDERED: Ramipril 5 MG CAP PO SCH (21:00)
[2018-10-22] MEDS: Levothyroxine Sodium 100 MCG TAB PO SCH (05:12)
[2018-10-22] MEDS: Citalopram 20 MG TAB PO SCH (07:55)
[2018-10-22] MEDS: Digoxin 0.125 MG TAB PO SCH (07:55)
[2018-10-22 13:33] VITALS: BP 156/81; TEMP 98.4
--- NOTE | 2018-10-22 14:23 | PQF ---
CLINICAL DOCUMENTATION IMPROVEMENT CLARIFICATION FORM: ICD-10 Updated PLEASE DO AN ADDENDUM TO THE PROGRESS NOTE WITH ANY DOCUMENTATION UPDATES OR ADDITIONS AND CARRY THROUGH TO DC SUMMARY. THANK YOU. DATE: 10/22/2018 ATTN: Dr. Moon Please exercise your independent, professional judgment in responding to the clarification form. Clinical indicators are provided on the bottom of this form for your review Please check appropriate box(s): [x ] I (concur) with the Nursing Assessment findings as stated below. [ ] Pressure Ulcer: (Stage I: Erythema; Stage II: Partial thickness; Stage III : Full thickness; Stage IV: Necrosis to muscle/bone) [ ] Location: POA: [ ] Yes [ ] No [ ] Unable to determine Stage (I to IV): __(Left__Right__Bilateral__N/A___) [ ] Location: POA: [ ] Yes [ ] No [ ] Unable to determine Stage (I to IV): __(Left___Right__Bilateral__N/A__) [ ] No pressure ulcer diagnosis [ ] Deep tissue injury [ ] Other diagnosis [ ] Unable to determine In addition, please specify: Present on Admission (POA): [x ] Yes [ ] No [ ] Unable to determine For continuity of documentation, please document condition throughout progress notes and discharge summary. Thank You. CLINICAL INDICATORS - SIGNS / SYMPTOMS / LABS Nursing Observation [place]. 10/20 @ 0145: Top of Left Foot Pressure Ulcer. Stage I SCG Pressure Ulcer. Stage III RISKS: H&P 10/19: 82 yo with hx of dementia, COPD, CAD, prior CVA, A Fib, on Eliquis. intermediate resident. Recent facial shingles. Recurrent falls. Recurrent UTI. TREATMENT: Skin interventions per Nursing protocol: Turn Q2 hrs and Prn. Skin kept from excessive moisture Pre-ulcer skin changes limited to persistent focal edema (Stage 1) Abrasion, blister, partial thickness skin loss involving epidermis and/or dermis (Stage 2) Full thickness skin loss involving damage or necrosis of SQ tissue. (Stage 3) Necrosis of soft tissue through to underlying muscle, tendon, or bone. (Stage 4) Purple or maroon discolored skin or blood filled blister Thank you, Emily (This form is maintained as a part of the permanent medical record) 2015 [employer] All Rights Reserved Emily Almazan RN, BSN [email or web address] Office: [phone] [facility]
--- NOTE | 2018-10-22 14:49 | PQF ---
CLINICAL DOCUMENTATION IMPROVEMENT CLARIFICATION FORM: ICD-10 Updated PLEASE DO AN ADDENDUM TO THE PROGRESS NOTE WITH ANY DOCUMENTATION UPDATES OR ADDITIONS AND CARRY THROUGH TO DC SUMMARY. THANK YOU. Date: 10/22/2018 ATTN: Dr. Moon Please exercise your independent, professional judgment in responding to the clarification form. Clinical indicators are provided on the bottom of this form for your review Please check appropriate box(s): [ x ] Protein Calorie Malnutrition: [ ] Mild [ x ] Moderate [ ] Severe [ ] Other Malnutrition (please specify) [ ] Underweight without malnutrition [ ] Cachexia [ ] Other diagnosis [ ] Unable to determine In addition, please specify: Present on Admission (POA): [ x ] Yes [ ] No [ ] Unable to determine CLINICAL INDICATORS - SIGNS / SYMPTOMS / LABS H&P 10/19: PE: Cachectic with no obvious edema. Physical deconditioning Straddle Carrier Operator Assessment 10/21: Nutrition Dx: Malnutrition related to possibly dementia/ decreased appetite As evidence by 25% wt loss over past year reported pt daughter- in-law, severe muscle wasting to clavicle, arms , and hands RISKS: H&P 10/19: 82 yo with hx of dementia, COPD, CAD, prior CVA, A Fib, on Eliquis. halfway resident. Recent facial shingles. Recurrent falls. Recurrent UTI. TREATMENT: Straddle Carrier Operator Assessment triggered for BMI 15.9 Order 10/20: Supplement: Ensure Clear TID Moderate Malnutrition (in acute illness) Energy Intake: <75% of estimated energy requirement for > 7 days Weight Loss: 1-2%/1 week; 5%/ 1 month; 7.5%/3 months Other: mild body fat loss; mild muscle mass loss; mild fluid accumulation; Severe Malnutrition (in acute illness) Energy Intake: < 50% of estimated energy requirement for > 5 days Weight Loss: >1-2%/1 week; >5%/1 month; >7.5%/3 months Other: moderate body fat loss; moderate muscle mass loss; moderate- severe fluid accumulation; measurably reduced gas operations analyst strength Moderate Malnutrition (in chronic illness) Energy Intake: <75% of estimated energy requirement for >1 month Weight Loss: 5%/1 month; 7.5%/3 months; 10%/6 months; 20%/1 year Other: mild body fat loss; mild muscle mass loss; mild fluid accumulation Severe Malnutrition (in chronic illness) Energy Intake: <75% of estimated energy requirement for >1 month Weight Loss: >5%/1 month; >7.5%/3 months; >10%/6 months; >20%/1 year Other: severe body fat loss; severe muscle mass loss; severe fluid accumulation; measurably reduced gas operations analyst strength Thank you, Emily (This form is maintained as a part of the permanent medical record) [address], [employer]. All Rights Reserved Emily Almazan RN, BSN [email or web address] Office: [phone] [facility]
--- NOTE | 2018-10-22 15:22 | PDOC.PN ---
- Subjective Encounter Start Date: 10/22/18 Encounter Start Time: 09:00 Subjective: awake, feels better -: follows verbal stimuli - Objective Resuscitation Status - Order Detail: 10/20/18 06:35 Resuscitation Status Routine Resuscitation Status: DNAR: NO Resuscitation Discussed with: DR. PAREDES AND WITH PT SON AND DAUGHTER IN LAW Additional comments: PT ALSO HAS OOH DNAR MAR Reviewed: Yes Vital Signs & Weight: Vital Signs (12 hours) Temp Pulse Resp BP BP Pulse Ox 10/22/18 13:28 98.4 F 68 18 156/81 H 95 10/22/18 11:49 98.2 F 81 18 153/69 H 94 L 10/22/18 10:11 81 18 94 L 10/22/18 07:55 80 149/84 H 94 L 10/22/18 07:47 98.3 F 80 18 149/84 H 94 L 10/22/18 06:34 110 H 18 96 Weight Admit Weight 89 lb 15.883 oz Weight 89 lb 15.883 oz I&O: 10/21/18 10/22/18 10/23/18 06:59 06:59 06:59 Intake Total 360 610 240 Balance 360 610 240 Result Diagrams: 10/21/18 06:20 10/19/18 22:21 Phys Exam - Physical Examination HEENT: PERRLA, moist MMs Neck: no JVD, supple Respiratory: no wheezing, no rales Cardiovascular: RRR, no significant murmur Gastrointestinal: soft, non-tender, positive bowel sounds Musculoskeletal: no edema, pulses present Neurological: non-focal, moves all 4 limbs Psychiatric: normal affect Dx/Plan (1) Acute encephalopathy Code(s): G93.40 - ENCEPHALOPATHY, UNSPECIFIED Status: Resolved (2) UTI (urinary tract infection) Status: Acute Qualifiers: Urinary tract infection type: acute cystitis Hematuria presence: without hematuria Qualified Code(s): N30.00 - Acute cystitis without hematuria (3) GI bleed Code(s): K92.2 - GASTROINTESTINAL HEMORRHAGE, UNSPECIFIED Status: Resolved Qualifiers: GI bleed type/associated pathology: unspecified gastrointestinal hemorrhage type Qualified Code(s): K92.2 - Gastrointestinal hemorrhage, unspecified Comment: stable h/h (4) A-fib Code(s): I48.91 - UNSPECIFIED ATRIAL FIBRILLATION Status: Chronic Qualifiers: Comment: Rate controlled. Continue dogoxin, diltiazem, Eliquis and ASA. (5) CVA (cerebral vascular accident) Code(s): I63.9 - CEREBRAL INFARCTION, UNSPECIFIED Status: Chronic Qualifiers: Comment: h/o right occipital and left frontal cva (6) CAD (coronary artery disease) Code(s): I25.10 - ATHSCL HEART DISEASE OF [place] CORONARY ARTERY W/O ANG PCTRS Status: Chronic Qualifiers: Coronary Disease-Associated Artery/Lesion type: [place] artery [place] vs. transplanted heart: [place] heart Associated angina: without angina Qualified Code(s): I25.10 - Atherosclerotic heart disease of [place] coronary artery without angina pectoris (7) COPD (chronic obstructive pulmonary disease) Status: Chronic Qualifiers: (8) Chronic anticoagulation Code(s): Z79.01 - CHEMICAL OPERATIONS SPECIALIST (CURRENT) USE OF ANTICOAGULANTS Status: Chronic Comment: On ASA and Eliquis - Plan urine pseudomonas is lewis sensitive -: dc pt back to snf -: hemostable -: d/w daughter in law over phone * . Review of Systems - Medications/Allergies Allergies/Adverse Reactions: Allergies Allergy/AdvReac Type Severity Reaction Status Date / Time metoprolol tartrate Allergy Verified 10/20/18 01:13 [From Lopressor] Sulfa (Sulfonamide Allergy Verified 10/20/18 01:13 Antibiotics)
== END 2018-10-22 14:41 | DRG 689 ==
LOC: ERS 21:53 → T4-A 23:48 → OBSVTOIN 10-21 16:01
PROVIDERS: ADMIT Hospitalist; ATTEND Hospitalist
DX: N30.00 Acute cystitis without hematuria (principal); L89.153 Pressure ulcer of sacral region, stage 3; F03.91 Unspecified dementia, unspecified severity, with behavioral disturbance; E44.0 Moderate protein-calorie malnutrition; Z68.1 Body mass index [BMI] 19.9 or less, adult; G93.40 Encephalopathy, unspecified; K92.1 Melena; Z66 Do not resuscitate; J44.9 Chronic obstructive pulmonary disease, unspecified; F03.90 Unspecified dementia, unspecified severity, without behavioral disturbance, psychotic disturbance, mood disturbance, and anxiety; I25.10 Atherosclerotic heart disease of native coronary artery without angina pectoris; E03.9 Hypothyroidism, unspecified; E78.5 Hyperlipidemia, unspecified; R45.1 Restlessness and agitation; R29.6 Repeated falls; L89.891 Pressure ulcer of other site, stage 1; I48.2 Chronic atrial fibrillation; Z79.82 Long term (current) use of aspirin; Z79.01 Long term (current) use of anticoagulants; Z86.73 Personal history of transient ischemic attack (TIA), and cerebral infarction without residual deficits; Z95.1 Presence of aortocoronary bypass graft; Z79.899 Other long term (current) drug therapy; Z88.2 Allergy status to sulfonamides; Z88.8 Allergy status to other drugs, medicaments and biological substances
CPT/HCPCS: 36415; 51701; 70450; 72170; 80053; 81003; 81015; 82274; 83690; 85007; 85025; 85027; 86850; 86900; 86901; 87077; 87086; 87186; 94640; 96374; J0696; J7620

== ENCOUNTER 2018-11-16 02:02 | Inpatient (IN) | payer MEDICARE, MEDICAID ==
[2018-11-16] MEDS ORDERED: Magnesium 2 GM/50 ML BAG (IN WATER) ONE ×3 (02:18→02:28)
[2018-11-16] MEDS ORDERED: Dexamethasone 4 mg/ml Vial ONE (02:18)
[2018-11-16] MEDS ORDERED: Dexamethasone 10 MG/ML VIAL ONE (02:21)
[2018-11-16] MEDS ORDERED: Albuterol Sulfate 2.5 mg/3 ml Neb ONE (02:27)
[2018-11-16 02:48] LABS: Actual Bicarbonate (HCO3a) 21.4 mEq/L (22-28); Analyzer IN Cardio ER; Base Excess (BEa) -2.2 mEq/L (-2.0 to +3.0); CO2 Tension 33.5 mmHg (35.0-45.0); Calcium, Ionized 1.23 mmol/L (1.12-1.30); Carboxyhemoglobin (COHb) 0.9 gm% (0.0-3.0); Hemoglobin (Hb) 14.2 g/dL (12.0-16.0); O2 Tension (PaO2) 86.4 mmHg (> 60.0); Potassium - ABG Lab 3.57 mmol/L (3.70-5.30); pH, Arterial 7.42 (7.35-7.45)
[2018-11-16 02:55] LABS: Puncture Site RBA
[2018-11-16 02:57] LABS: ALV-art Gradient 121.275 (0-20)
[2018-11-16 03:12] LABS: Hemoglobin 13.9 g/dL (12.0-16.0); Mean Corpuscular HGB CONC 36.3 g/dL (32.0-36.0); Mean Corpuscular Hemoglobin 38.4 pg (27.0-31.0); Mean Platelet Volume 9.8 fL (7.4-10.4); Platelet Count 148 thou/uL (130-400); RBC Distribution Width 13.4 % (11.5-14.5); Red Blood Cell (RBC) Count 3.63 mill/uL (4.20-5.40); White Blood Cell (WBC) Count 8.6 thou/uL (4.8-10.8)
[2018-11-16 03:29] LABS: ALT (SGPT) 13 U/L (8-55); AST (SGOT) 12 U/L (5-34); Albumin 3.5 g/dL (3.4-4.8); Alkaline Phosphatase 56 U/L (40-150); Anion Gap 12 mmol/L (10-20); BUN (Urea Nitrogen) 16 mg/dL (9.8-20.1); Bilirubin, Total 0.6 mg/dL (0.2-1.2); CK (CPK) 27 U/L (29-168); Calc. Creatinine Clearance 0 mL/min (70-130); Calcium 9.1 mg/dL (7.8-10.44); Carbon Dioxide 22 mmol/L (23-31); Chloride 109 mmol/L (98-107); Estimated GFR-MDRD 84; Globulin 2.4 g/dL (2.4-3.5); Glucose 111 mg/dL (83-110); Lipase 19 U/L (8-78); Potassium 3.7 mmol/L (3.5-5.1); Protein, Total 5.9 g/dL (6.0-8.3); Sodium 139 mmol/L (136-145)
[2018-11-16 03:35] LABS: #Basophils 0.1 thou/uL (0.0-0.2); #Eosinphils 0.2 thou/uL (0.0-0.7); #Monocytes 0.7 thou/uL (0.11-0.59); #Neutrophils 5.7 thou/uL (1.40-6.50); %Basophils 0.8 % (0.0-1.0); %Eosinophils 2.4 % (0.0-10.0); %Lymphocytes 23.4 % (21.0-51.0); %Monocytes 7.7 % (0.0-10.0); %Neutrophils 65.7 % (42.0-75.0); MDiff Complete? YES; Macrocytosis SLIGHT = 6-15 cells (100X) (0-5/hpf); Platelet Morphology Comment Appears Adequate
[2018-11-16 04:03] LABS: Bilirubin Negative (Negative); Blood, Urine Small (Negative); Clarity CLOUDY (Clear); Glucose, Urine (Dipstick) Negative (Negative); Leukocyte Large (Negative); Nitrite Negative (Negative); Protein, Urine (Dipstick) Negative (Neg-Trace); Specific Gravity, Urine 1.009 (1.002-1.036); Urobilinogen 0.2 mg/dL (0.2-1.0)
[2018-11-16 04:06] LABS: Bacteria/HPF None Seen HPF (None Seen); Hyaline Casts/LPF 4-6 HYALINE CAST LPF (0-3 Hyaline); Pathc Cast-AUWi Flag 1.36 (0-2.49); RBC/HPF 0-3 HPF (0-3); Squamous Epithelial 0-3 HPF (0-3); Yeast-AUWi Flag 11.9 (0-25.0)
[2018-11-16] MEDS ORDERED: Ondansetron PF 4 MG/2 ML Vial IVP PRN (05:04)
[2018-11-16] MEDS ORDERED: Ondansetron ODT 4 MG TAB PO PRN (05:04)
[2018-11-16] MEDS ORDERED: Acetaminophen 325 MG TAB PO PRN (05:04)
[2018-11-16] MEDS ORDERED: methylPREDNISolone Sod Succ 40 MG VIAL ONE (06:37)
[2018-11-16] MEDS: methylPREDNISolone Sod Succ/PF 125 MG/2 ML VIAL IVP SCH ×2 (06:40→14:03)
[2018-11-16] MEDS ORDERED: Nitroglycerin 2% Ointment 1 INCH/1 GM Packet ONE (08:09)
--- NOTE | 2018-11-16 10:11 | RAD ---
PORTABLE CHEST: Date: 11/16/18 HISTORY: Dyspnea. COMPARISON: 05/29/18. IMPRESSION: Cardiomegaly. Mild vascular engorgement. Interstitial prominence. No focal infiltrate or significant effusion. POS: OFF
--- NOTE | 2018-11-16 13:11 | HP ---
CHIEF COMPLAINT: Shortness of breath. HISTORY OF PRESENT ILLNESS: The patient is an 82-year-old skilled nursing resident, who was brought to the emergency room because of dyspnea and wheezing, which was going on for approximately couple of days and it was getting worse to the point that she was sent out by EMS to the emergency room for further evaluation. She has a history of chronic obstructive pulmonary disease and she was just discharged from this hospital in the beginning of October when she was hospitalized for metabolic encephalopathy most likely related to urinary tract infection. PAST MEDICAL HISTORY: Positive for, 1. COPD. 2. Dementia. 3. Congestive heart failure. 4. Hypothyroidism. 5. Atrial fibrillation, chronic. 6. Chronic anticoagulation with Eliquis. 7. Coronary artery disease. 8. Hyperlipidemia. 9. Hypertension. 10. Recurrent falls. 11. Prior CVA and TIAs. 12. Recurrent UTI. 13. History of hematochezia with stable H and H during the previous admission. 14. History of acute encephalopathy secondary to UTI. PAST SURGICAL HISTORY: 1. Right elbow fracture repaired. 2. CABG x6 vessels. FAMILY HISTORY: Positive for cardiovascular disease. SOCIAL HISTORY: She used to smoke, but quit approximately 10 years ago. She does not use any illicit drugs. She does not drink any alcohol. ALLERGIES: METOPROLOL TARTRATE AND SULFA. MEDICATIONS: 1. Trazodone 100 mg once a day. 2. Melatonin 6 mg once a day at bedtime. 3. Atorvastatin 80 mg at bedtime. 4. Digoxin 0.125 mg once a day. 5. Levothyroxine 100 mcg every morning. 6. Aspirin 81 mg once a day. 7. Ramipril 5 mg twice a day. 8. Eliquis 2.5 mg twice a day. 9. Citalopram 20 mg once a day. 10. Breo Ellipta one puff once a day. 11. Docusate sodium 100 mg twice a day. 12. Ipratropium and albuterol nebulization 4 times a day. 13. Valacyclovir 1 g twice a day. REVIEW OF SYSTEMS: All 14 systems were reviewed and they were negative except for findings mentioned in the HPI. PHYSICAL EXAMINATION: The patient is still on a BiPAP mask at the time of my visits. Two family members are present in the room. The patient is in the emergency room, ER hold 15. VITAL SIGNS: Blood pressure is 138/83, pulse 107, respirations 24, pain 0, and O2 saturation is 97% on BiPAP. GENERAL: She is elderly lady, quite emaciated. HEENT: Her head is atraumatic and normocephalic. Eyes; pupils are responding to light properly. Sclerae are nonicteric. Conjunctivae are pinkish. Oral mucosa is dry. NECK: Supple. No lymphadenopathy. Thyroid is not palpable. LUNGS: Bilateral crackles and wheezing and rales. HEART: S1 and S2. Irregularly irregular. No S3. No S4. ABDOMEN: Soft, nontender, and nondistended. Bowel sounds are present. No organomegaly. EXTREMITIES: 1+ peripheral edema on lower extremities, similar bilaterally. NEUROLOGICAL: She follows my commands. She moves all 4 extremities. There is no any motor or sensory deficits present. Cranial nerves are intact. LABORATORY DATA: Labs showed white count of 8.6, hemoglobin 13.9, hematocrit 38.4, and platelet count 148,000. ABGs showed pH of 7.42, pCO2 of 33.5, and pO2 86.4. Sodium of 139, potassium 3.7, chloride 109, CO2 of 22, BUN 16, creatinine 0.67, glucose 111. Creatine kinase 27. BNP 182.7. Total protein 5.9. Troponin I less than 0.010. Lipase 19. Urine showed small amount of blood, large amount of leukocyte esterase, wbc's in the scope showed greater than 50 to TNTC, and 4 to 6 hyaline casts. IMAGING DATA: EKG personally reviewed by me showed atrial fibrillation with ventricular rate of 109 with Q-waves in V1 to V2, precordial leads and ST-segment depression in V3, V4, V5, and V6. Chest x-ray personally reviewed by me showed cardiomegaly, chronic emphysematous changes in both lungs. No infiltrates. IMPRESSION: 1. Acute exacerbation of chronic obstructive pulmonary disease with some component of bronchitis. The patient received albuterol, DuoNeb, IV fluids, and magnesium sulfate in the emergency room along with Levaquin 750 mg and Decadron 10 mg IV push at 2:32 while in the emergency room. 2. History of congestive heart failure with some elevation of BNP. 3. Chronic atrial fibrillation. 4. Chronic anticoagulation with Eliquis. 5. History of coronary artery disease. First troponin I is within normal limits. She has some changes on electrocardiogram of ischemic nature. 6. Hyperlipidemia. 7. Hypertension. 8. Recurrent falls. 9. History of cerebrovascular accident and transient ischemic attacks. 10. Hypothyroidism. 11. Recurrent urinary tract infections. 12. History of hematochezia with stable H and H. 13. Recent acute encephalopathy secondary to urinary tract infection. PLAN: Plan is to admit her to [facility]. We will take her off the BiPAP and see how she does on nasal cannula. Her condition is guarded. Activity, bedrest and bathroom privileges with assistance. Diet, heart healthy. IV Hep-Lock. DuoNeb q.4, Solu-Medrol 40 mg q.6 IV push. O2 by nasal cannula. Levofloxacin 750 mg IV piggyback q.24 hours. Repeat troponin I q.4 hours x2. Echocardiogram and Cardiology consultation. The patient is on Eliquis, we will continue that. So, she will not need any other anticoagulation or anti-platelet medicine except for aspirin she is taking at home. Job ID: [id number]
[2018-11-16] MEDS ORDERED: Nitroglycerin 2% Ointment 1 INCH/1 GM Packet TOP SCH (14:00)
[2018-11-16] MEDS ORDERED: Furosemide 40 MG/4 ML VIAL SLOW IVP SCH (14:45)
[2018-11-16] MEDS ORDERED: Digoxin 0.25 MG TAB PO SCH (14:45)
[2018-11-16] MEDS: Apixaban 2.5 MG TAB PO SCH (20:31)
--- NOTE | 2018-11-16 22:38 | CON ---
DATE OF CONSULTATION: 11/16/2018 SERVICE: Pulmonary Medicine. REASON FOR CONSULT: ICU patient. HISTORY OF PRESENT ILLNESS: The patient is an 82-year-old white female with past medical historysignificant for a severe COPD. She was in her usual state of health when she was brought from the emergency department, because of increasing shortness of breath, wheezing, and increasing confusion beyond baseline. She does have cognitive impairment at baseline. I do find her pleasantly confused. She denies any current fevers, chills, nausea, vomiting, though her review of systems is completely unremarkable, it is also not reliable. At this point, she does not know where she is or what the situation is. PAST MEDICAL HISTORY: 1. COPD. 2. Chronic diastolic heart failure. 3. Atrial fibrillation, permanent. 4. Hypothyroidism. 5. Dementia. 6. Coronary artery disease. 7. Hypertension. 8. Dyslipidemia. 9. History of CVA with residual right-sided hemiparesis. 10. Debility. PAST SURGICAL HISTORY: 1. Right elbow fracture, status post repair. 2. Coronary bypass graft x6 vessels. FAMILY HISTORY: Noncontributory. SOCIAL HISTORY: Negative for alcohol, tobacco, or illicit drug use. Currently resides in a nursing facility. She has no exposure to chemicals, dust, asbestos , or tuberculosis. ALLERGIES: METOPROLOL. MEDICATIONS: List of her inpatient medications was reviewed. Multiple updates were made. REVIEW OF SYSTEMS: Is not reliable. She denies a 12-point review of systems including general, head, ears, eyes, nose, throat, cardiovascular, respiratory, GI, , musculoskeletal, neurologic, and skin is negative except as mentioned is the HPI. PHYSICAL EXAMINATION: VITAL SIGNS: Afebrile, pulse 120, respirations 14, saturation 100% on 3 L nasal cannula. GENERAL: The patient is awake and alert. No apparent distress. LUNGS: Reduced air entry with a prolonged expiratory phase and polyphonic wheezing. Crackling is also noted throughout bilateral lung vazquez. HEART: Tachycardic. Irregular. ABDOMEN: Soft, nontender, nondistended. Bowel sounds are positive. MUSCULOSKELETAL: No cyanosis or clubbing. There is 4+ pitting in the bilateral lower extremities. NEUROLOGIC: Grossly nonfocal. LABORATORY DATA: WBC 8.6, hemoglobin 13.9, platelets 148,000. PH 7.42, pCO2 33 , PO2 86. Basic metabolic profile and liver function studies are otherwise unremarkable. BNP is elevated. Lactate is negative. Remarkably, her albumin is 3.5. Troponin is negative x3. Urinalysis is positive for white blood cell, and leukocyte esterase, though nitrites are negative. Influenza A and B are negative. IMAGING: Chest x-ray demonstrates cephalization. Interstitial fullness is present. No overt consolidating changes are appreciated. ASSESSMENT: 1. Acute hypoxic respiratory failure. 2. Chronic obstructive pulmonary disease with acute exacerbation. 3. Ggxnq-rl-uracstc diastolic heart failure. 4. Atrial fibrillation with rapid ventricular response. 5. Dementia, advanced. 6. Debility secondary to stroke from a year ago. DISCUSSION AND PLAN: We will continue antibiotics, nebulized medications, and steroids. I will diurese the patient through time. At this point, she is stable for transition out of the IMCU to the telemetry unit. Pulmonary will continue to follow in this location. 70 minutes have been devoted to this patient in various activities. I personally reviewed all imaging studies and laboratory data noted within this document. For fifty percent of this time, I was interacting with the patient at the bedside or coordinating care with the care team. For the remainder of the time I was immediately available to the patient in the hospital unit. Job ID: [id number] [id number]
[2018-11-17 05:23] LABS: #Monocytes 0.8 thou/uL (0.11-0.59); #Neutrophils 8.3 thou/uL (1.40-6.50); %Basophils 0.1 % (0.0-1.0); %Eosinophils 0.3 % (0.0-10.0); %Lymphocytes 10.1 % (21.0-51.0); %Monocytes 7.6 % (0.0-10.0); Hemoglobin 13.3 g/dL (12.0-16.0); Mean Corpuscular HGB CONC 33.4 g/dL (32.0-36.0); Mean Corpuscular Hemoglobin 35.2 pg (27.0-31.0); Platelet Count 221 thou/uL (130-400); RBC Distribution Width 12.9 % (11.5-14.5); White Blood Cell (WBC) Count 10.1 thou/uL (4.8-10.8)
[2018-11-17 05:52] LABS: Phosphorus 2.7 mg/dL (2.3-4.7)
[2018-11-17 05:53] LABS: Anion Gap 11 mmol/L (10-20); BUN (Urea Nitrogen) 17 mg/dL (9.8-20.1); Calc. Creatinine Clearance 47 mL/min (70-130); Calcium 9.4 mg/dL (7.8-10.44); Carbon Dioxide 24 mmol/L (23-31); Chloride 106 mmol/L (98-107); Estimated GFR-MDRD 80; Glucose 111 mg/dL (83-110); Magnesium 2.1 mg/dL (1.6-2.6); Potassium 4.2 mmol/L (3.5-5.1); Sodium 137 mmol/L (136-145)
[2018-11-17] MEDS ORDERED: Furosemide 40 MG/4 ML VIAL SLOW IVP SCH (09:00)
[2018-11-17] MEDS: Apixaban 2.5 MG TAB PO SCH ×2 (10:58→20:13)
[2018-11-17] MEDS: Digoxin 0.125 MG TAB PO SCH (10:58)
[2018-11-17] MEDS: predniSONE 20 MG TAB PO SCH (10:58)
--- NOTE | 2018-11-17 11:19 | PDOC.PN ---
- Subjective Encounter Start Date: 11/17/18 Encounter Start Time: 11:17 Ms. Coleman was seen today in follow-up. She does not have any complaints. She says she is breathing fine. She denies chest pain. She is laying flat in bed off oxygen and looks comfortable. - Objective Resuscitation Status - Order Detail: 11/16/18 05:04 Resuscitation Status Routine Resuscitation Status: DNAR: NO Resuscitation Discussed with: power of united [place] attorney at bedside MAR Reviewed: Yes Vital Signs & Weight: Vital Signs (12 hours) Temp Pulse Resp Pulse Ox 11/17/18 10:58 96 11/17/18 10:25 88 18 95 11/17/18 08:00 98 11/17/18 07:14 99.4 F 11/17/18 07:13 94 L 11/17/18 07:11 82 22 H 93 L 11/17/18 04:27 97.8 F 11/17/18 02:18 96 11/17/18 00:14 97.4 F L 11/16/18 23:25 96 Weight Weight 109 lb 4 oz Most Recent Monitor Data Heart Rate from ECG 70 NIBP 118/69 NIBP BP-Mean 85 Respiration from ECG 25 SpO2 100 I&O: 11/16/18 11/17/18 11/18/18 06:59 06:59 06:59 Intake Total 220 Output Total 1600 Balance -1380 Result Diagrams: 11/17/18 04:40 11/17/18 04:40 Phys Exam - Physical Examination HEENT: PERRLA, sclera anicteric Respiratory: no wheezing, no rales, no rhonchi, clear to auscultation bilateral Cardiovascular: RRR, no significant murmur, no rub Gastrointestinal: soft, non-tender, no distention, positive bowel sounds Musculoskeletal: no edema, pulses present Dx/Plan (1) Acute on chronic respiratory failure with hypoxia Code(s): J96.21 - ACUTE AND CHRONIC RESPIRATORY FAILURE WITH HYPOXIA Status: Acute Comment: Resolved, pt is Not on oxygen now. (2) A-fib Code(s): I48.91 - UNSPECIFIED ATRIAL FIBRILLATION Status: Chronic Qualifiers: Comment: Rate controlled. Continue dogoxin, diltiazem, Eliquis and ASA. (3) CAD (coronary artery disease) Code(s): I25.10 - ATHSCL HEART DISEASE OF [place] CORONARY ARTERY W/O ANG PCTRS Status: Chronic Qualifiers: (4) HTN (hypertension) Code(s): I10 - ESSENTIAL (PRIMARY) HYPERTENSION Status: Chronic Qualifiers: Comment: At goal. Continue current meds. - Plan * Acute on chronic respiratory failure with hypoxemia- due to COPD exacerbation - she is improving * Continue Duonebs, steroids and Levaquin * She appears stable to move to the medical floor * AFIB- her heart rate is stab;e * HTN- blood pressure is stable * CAD- stable.
--- NOTE | 2018-11-17 12:37 | PRG ---
DATE OF SERVICE: 11/17/2018 SERVICE: Pulmonary Medicine. INTERVAL HISTORY: The patient is doing fantastic off BiPAP. Denies any current fevers, chills, or shortness of breath. She has been weaned down to room air. She is maintaining good saturations. There has been no interval change to her condition. Her volume status is drastically improved. PHYSICAL EXAMINATION: VITAL SIGNS: Afebrile with a T-max of 99.4, pulse 96, blood pressure 118/69, respirations 18, and saturation 95% on room air. GENERAL: The patient is awake and alert, in no apparent distress. LUNGS: Decent air entry. There is no prolonged expiratory phase or wheezing present. Dependent crackles are much improved. HEART: Normal rate and regular. ABDOMEN: Soft, nontender, and nondistended. Bowel sounds are positive. MUSCULOSKELETAL: No cyanosis or clubbing. There is 1+ pitting in the bilateral lower extremities, which is drastically improved. : No Le. NEUROLOGIC: Grossly nonfocal. LABORATORY DATA: WBC 10.1, hemoglobin 13.3, and platelets 221,000. Basic metabolic profile is otherwise unremarkable. Magnesium and phosphorous fall within the normal limits. Urinalysis is negative. Urine culture is growing yeast species. Blood cultures x2 are unremarkable. Influenza A and B are negative. ASSESSMENT: 1. Acute hypoxic respiratory failure, resolved. 2. Chronic obstructive pulmonary disease with acute exacerbation, mild. 3. Acute on chronic diastolic heart failure, returning to euvolemia. 4. Atrial fibrillation, currently rate controlled. 5. Dementia, advanced. 6. Debility secondary to stroke from a year ago. DISCUSSION AND PLAN: The patient is doing fine from respiratory standpoint. We will continue to diurese through time. Antibiotics, nebulized medications, and steroids can be limited to a 5-day duration. Truthfully, she is stable for discharge from the hospital or transition to the floor. When she gets out of the hospital, she can continue nebulized medications 3 times daily. Close attention will need to be paid to her volume status as this respiratory event was primarily volume mediated. Pulmonary will continue to follow. Job ID: [id number]
[2018-11-17] MEDS ORDERED: ALPRAZolam 0.25 MG TAB PO SCH (18:00)
[2018-11-18] MEDS: Furosemide 40 MG TAB PO SCH (08:49)
[2018-11-18] MEDS: predniSONE 20 MG TAB PO SCH (08:49)
[2018-11-18] MEDS: Apixaban 2.5 MG TAB PO SCH ×2 (08:50→20:48)
[2018-11-18] MEDS: Digoxin 0.125 MG TAB PO SCH (08:50)
[2018-11-18 08:55] LABS: Anion Gap 12 mmol/L (10-20); BUN (Urea Nitrogen) 14 mg/dL (9.8-20.1); Calc. Creatinine Clearance 47 mL/min (70-130); Calcium 9.4 mg/dL (7.8-10.44); Carbon Dioxide 24 mmol/L (23-31); Chloride 107 mmol/L (98-107); Estimated GFR-MDRD 80; Glucose 75 mg/dL (83-110); Potassium 3.8 mmol/L (3.5-5.1); Sodium 139 mmol/L (136-145)
--- NOTE | 2018-11-18 09:05 | PRG ---
DATE OF SERVICE: 11/18/2018 SUBJECTIVE: She says she feels okay. She had no acute complaints for me. PHYSICAL EXAMINATION: VITAL SIGNS: Temperature is 97.7, pulse 85, respirations 16, O2 saturation 95% on room air, and blood pressure 140/80. HEENT: Unremarkable. NECK: No JVD. LUNGS: Clear without wheezing or rhonchi. CARDIAC: S1, S2. Regular. ABDOMEN: Soft. EXTREMITIES: No edema. ASSESSMENT: 1. Acute on chronic hypoxic respiratory failure - improved. 2. Chronic obstructive pulmonary disease with exacerbation. 3. Acute on chronic diastolic heart failure. 4. Atrial fibrillation. 5. Dementia. PLAN: 1. The patient will continue the oral antibiotics and finish those in 2 days. 2. Continue prednisone, stopping after 4 more doses. 3. Probably stable for transfer to rehab skilled and possibly even home. Job ID: [id number]
[2018-11-18 14:13] VITALS: BMI 17.6
--- NOTE | 2018-11-18 14:58 | PDOC.PN ---
- Subjective Encounter Start Date: 11/18/18 Encounter Start Time: 14:56 Ms. Coleman was seen today in follow-up of acute respiratory failure with hypoxemia. she is breathing better, and does not have any complaints. - Objective Resuscitation Status - Order Detail: 11/16/18 05:04 Resuscitation Status Routine Resuscitation Status: DNAR: NO Resuscitation Discussed with: power of assistant attorney general at bedside MAR Reviewed: Yes Vital Signs & Weight: Vital Signs (12 hours) Temp Pulse Resp BP BP BP Pulse Ox 11/18/18 14:06 77 18 95 11/18/18 10:21 82 18 92 L 11/18/18 08:50 84 145/89 H 11/18/18 08:46 98.7 F 84 18 145/89 H 91 L 11/18/18 08:00 91 L 11/18/18 06:19 95 11/18/18 06:18 81 16 95 11/18/18 03:11 92 L 11/18/18 03:00 97.7 F 85 22 H 148/80 H 97 Weight Admit Weight 109 lb 4 oz Weight 109 lb 4 oz Most Recent Monitor Data Heart Rate from ECG 80 NIBP 148/85 NIBP BP-Mean 106 Respiration from ECG 26 SpO2 96 I&O: 11/17/18 11/18/18 11/19/18 06:59 06:59 06:59 Intake Total 220 100 Output Total 1600 800 Balance -1380 -700 Result Diagrams: 11/17/18 04:40 11/18/18 08:20 Phys Exam - Physical Examination HEENT: PERRLA Respiratory: no wheezing, no rales, no rhonchi Cardiovascular: RRR, no significant murmur, no rub Gastrointestinal: soft, non-tender, no distention, positive bowel sounds Musculoskeletal: no edema, pulses present Dx/Plan (1) Acute on chronic respiratory failure with hypoxia Code(s): J96.21 - ACUTE AND CHRONIC RESPIRATORY FAILURE WITH HYPOXIA Status: Acute Comment: Resolved, pt is Not on oxygen now. (2) A-fib Code(s): I48.91 - UNSPECIFIED ATRIAL FIBRILLATION Status: Chronic Qualifiers: Comment: Rate controlled. Continue dogoxin, diltiazem, Eliquis and ASA. (3) CAD (coronary artery disease) Code(s): I25.10 - ATHSCL HEART DISEASE OF [place] CORONARY ARTERY W/O ANG PCTRS Status: Chronic Qualifiers: (4) HTN (hypertension) Code(s): I10 - ESSENTIAL (PRIMARY) HYPERTENSION Status: Chronic Qualifiers: Comment: At goal. Continue current meds. - Plan * Acute on chronic respiratory failure- improved * She is stable for discharge back to [facility] on continued oral antibiotics, steroids, and Lasix as needed.
--- NOTE | 2018-11-18 22:52 | DIS ---
DATE OF ADMISSION: 11/16/2018 DATE OF DISCHARGE: 11/18/2018 PRIMARY CARE PHYSICIAN: Dr. Mcgowan. DISCHARGE DISPOSITION: Back to the [facility]. DISCHARGE DIAGNOSES: 1. Acute on chronic respiratory failure with hypoxemia. 2. Chronic obstructive pulmonary disease exacerbation. 3. Acute on chronic diastolic heart failure. 4. Chronic atrial fibrillation. 5. Coronary artery disease. 6. Hypertension. 7. Recurrent falls. 8. Dementia. DISCHARGE MEDICATIONS: 1. Seroquel 25 mg at bedtime. 2. Prednisone 40 mg daily. 3. Levaquin 500 mg daily for 2 days. 4. Lasix 40 mg as needed for excessive weight gain or excessive fluid. 5. Valacyclovir 1000 mg twice daily. 6. Ramipril 10 mg at bedtime. 7. MiraLAX 17 g as needed. 8. Zofran 8 mg t.i.d. as needed. 9. Melatonin 6 mg at bedtime. 10. Loperamide 4 mg as needed. 11. Synthroid 100 mcg daily. 12. Nizoral cream one application daily. 13. DuoNeb q.i.d. as needed. 14. Guaifenesin 10 mL q.4 hours as needed. 15. Breo Ellipta one inhalation daily. 16. Erythromycin base, ophthalmic ointment to the right eye 4 times a day. 17. Cardizem LA 250 mg daily. 18. Digoxin 125 mcg p.o. daily. 19. Betamethasone cream twice a day. 20. Citalopram 20 mg daily. 21. Dulcolax 10 mg per rectum as needed. 22. Lipitor 20 mg at bedtime. 23. Eliquis 2.5 mg twice a day. 24. Amlodipine 10 mg daily. 25. Xanax 0.25 mg as needed. 26. Albuterol nebs 2.5 q.6 as needed. 27. Acetaminophen 650 mg t.i.d. PROCEDURES DONE DURING ADMISSION: The patient had an echocardiogram, this demonstrated an ejection fraction which was estimated at 65% to 70%, severely dilated left atrium, moderately enlarged right atrium, severe mitral regurgitation and moderate to severe tricuspid regurgitation. CODE STATUS: DNAR. ALLERGIES: METOPROLOL AND SULFA. HOSPITAL COURSE: Ms. Coleman is a pleasant 82-year-old female, who was sent to the hospital after she developed severe shortness of breath. She was found to be in acute on chronic respiratory failure and she required BiPAP and an admission to the [facility]. It was felt that the acute respiratory failure was likely the result of a chronic obstructive pulmonary disease exacerbation in addition to some volume overload from diastolic dysfunction, likely as a result of valvular heart disease. She was diuresed with IV Lasix. She improved over the course of the next couple of days and was able to be discharged back to the [facility] on 11/18/2018, in stable condition. She will be placed on p.r.n. Lasix due to the volume overload that she experienced, however, not daily as there is also risk for severe volume depletion as well. Job ID: [id number]
[2018-11-19 07:28] VITALS: BP 157/84; TEMP 98
[2018-11-19] MEDS: Furosemide 40 MG TAB PO SCH (07:51)
[2018-11-19] MEDS: predniSONE 20 MG TAB PO SCH (07:52)
[2018-11-19] MEDS: Digoxin 0.125 MG TAB PO SCH (07:53)
[2018-11-19] MEDS: Apixaban 2.5 MG TAB PO SCH (07:53)
== END 2018-11-19 10:32 | DRG 190 ==
LOC: ERS 02:02 → ERHOLD 03:45 → IMCU/EMU 12:54 → ONC 11-17 15:24
PROVIDERS: ADMIT Hospitalist; ATTEND Hospitalist
DX: J44.1 Chronic obstructive pulmonary disease with (acute) exacerbation (principal); J96.01 Acute respiratory failure with hypoxia; J96.21 Acute and chronic respiratory failure with hypoxia; I50.33 Acute on chronic diastolic (congestive) heart failure; N39.0 Urinary tract infection, site not specified; I11.0 Hypertensive heart disease with heart failure; I48.2 Chronic atrial fibrillation; Z79.01 Long term (current) use of anticoagulants; I25.10 Atherosclerotic heart disease of native coronary artery without angina pectoris; E78.5 Hyperlipidemia, unspecified; E03.9 Hypothyroidism, unspecified; R29.6 Repeated falls; F03.90 Unspecified dementia, unspecified severity, without behavioral disturbance, psychotic disturbance, mood disturbance, and anxiety; I69.398 Other sequelae of cerebral infarction; I08.1 Rheumatic disorders of both mitral and tricuspid valves; Z66 Do not resuscitate
CPT/HCPCS: 36415; 51701; 71045; 80048; 80053; 81003; 81015; 82550; 82805; 83605; 83690; 83735; 83880; 84100; 84484; 85025; 87040; 87086; 87804; 93005; 93306; 94660; 96365; 96366; 96375; A4353; J1100; J1940; J1956; J2920; J3475; J7512; J7611; J7620

== ENCOUNTER 2018-11-26 23:09 | Inpatient (IN) | payer MEDICARE, MEDICAID ==
[~2018-11-26 23:09] MED LIST: ISOVUE-370 76%-LOCM 1 ML ONE
--- NOTE | 2018-11-26 23:48 | RAD ---
XR Chest 1 View Portable History: [Nausea and vomiting] Comparison: Radiograph November 16, 2018 Findings: There is scarring and fibrosis in the lungs. Heart size mildly enlarged. No pneumothorax. Dense calcifications of the transverse aorta. No acute osseous abnormality. Impression: Chronic findings. No acute intrathoracic abnormality.
[2018-11-27 00:15] LABS: Hemoglobin 17.5 g/dL (12.0-16.0); Mean Corpuscular HGB CONC 31.4 g/dL (32.0-36.0); Mean Corpuscular Hemoglobin 34.1 pg (27.0-31.0); Mean Platelet Volume 8.5 fL (7.4-10.4); Platelet Count 294 thou/uL (130-400); RBC Distribution Width 13.1 % (11.5-14.5); Red Blood Cell (RBC) Count 5.13 mill/uL (4.20-5.40); White Blood Cell (WBC) Count 38.2 thou/uL (4.8-10.8)
[2018-11-27 00:19] LABS: INR-International Normal Ratio 1.2; Prothrombin Time 14.8 SEC (12.0-14.7)
[2018-11-27 00:20] LABS: PTT 28.8 SEC (22.9-36.1)
[2018-11-27 00:37] LABS: ALT (SGPT) 26 U/L (8-55); AST (SGOT) 19 U/L (5-34); Albumin 3.4 g/dL (3.4-4.8); Alkaline Phosphatase 61 U/L (40-150); Anion Gap 18 mmol/L (10-20); BUN (Urea Nitrogen) 41 mg/dL (9.8-20.1); Band 11 % (5-11); Bilirubin, Total 1.2 mg/dL (0.2-1.2); CK (CPK) 21 U/L (29-168); Calc. Creatinine Clearance 0 mL/min (70-130); Calcium 9.5 mg/dL (7.8-10.44); Carbon Dioxide 20 mmol/L (23-31); Chloride 105 mmol/L (98-107); Estimated GFR-MDRD 27; Globulin 2.1 g/dL (2.4-3.5); Glucose 199 mg/dL (83-110); Hypochromia SLIGHT = 6-15 cells (100X) (0-5/hpf); Lipase 11 U/L (8-78); Lymphocytes 1 % (21-51); MDiff Complete? YES; Monocytes 2 % (0-10); Neutrophil 86 % (42-75); Platelet Morphology Comment Appears Adequate; Potassium 5.9 mmol/L (3.5-5.1); Protein, Total 5.5 g/dL (6.0-8.3); Sodium 137 mmol/L (136-145)
[2018-11-27] MEDS ORDERED: Ondansetron PF 4 MG/2 ML Vial ONE (00:49)
[2018-11-27] MEDS ORDERED: Morphine 4 MG/ML VIAL ONE (00:49)
[2018-11-27] MEDS ORDERED: Ondansetron PF 4 MG/2 ML Vial IVP PRN (02:12)
[2018-11-27 03:09] LABS: Bilirubin Negative (Negative); Blood, Urine Negative (Negative); Clarity CLEAR (Clear); Glucose, Urine (Dipstick) Negative (Negative); Leukocyte Negative (Negative); Nitrite Negative (Negative); Protein, Urine (Dipstick) 30 mg/dL (Neg-Trace); Urobilinogen 0.2 mg/dL (0.2-1.0)
[2018-11-27 03:13] LABS: Bacteria/HPF None Seen HPF (None Seen)
[2018-11-27 03:19] LABS: Pathc Cast-AUWi Flag 23.39 (0-2.49); Specific Gravity, Urine 1.053 (1.002-1.036)
[2018-11-27 03:27] LABS: RBC/HPF 0-3 HPF (0-3)
[2018-11-27 03:29] LABS: Other Casts/LPF 4-6 COARSE GRAN LPF (0-3 Hyaline); Renal Epithelial None Seen HPF (0-3); Transitional Epithelial NONE SEEN HPF (0-3)
[2018-11-27 03:33] VITALS: BMI 16.9
--- NOTE | 2018-11-27 04:13 | HP ---
PRIMARY CARE DOCTOR: The patient lives in custodial. CODE STATUS: The patient is DNR/DNI. The patient will go for comfort care given the severity of illness. TIME OF EVALUATION: 1:30 a.m. CHIEF COMPLAINT: Nausea, vomiting, abdominal pain. HISTORY OF PRESENT ILLNESS: The information has been gathered from power of claim attorney as the patient is not very cooperative. She was brought to the hospital from custodial since the patient was having abdominal pain. The patient's symptoms were severe, associated with nausea, vomiting, with no clear triggers, no alleviating factors. The patient had been discharged recently from the hospital due to COPD exacerbation, improved and has been discharged. REVIEW OF SYSTEMS: Unable to obtain as patient is not cooperative, nonverbal. PAST MEDICAL HISTORY: The patient has a history of COPD, dementia, hypothyroidism, history of stroke, hyperlipidemia. PAST SURGICAL HISTORY: Right elbow fracture repair, CABG x6 vessels in 2001. PSYCHIATRIC HISTORY: No history of suicidal ideations. No significant psych history. SOCIAL HISTORY: No alcohol, no drugs. The patient is a former smoker, quit more than 10 years ago. FAMILY HISTORY: Reviewed noncontributory for current presentation. KNOWN ALLERGIES: Metoprolol and sulfa. HOME MEDICATIONS: 1. Melatonin. 2. Trazodone. 3. Atorvastatin. 4. Digoxin. 5. Levothyroxine. 6. Aspirin. 7. Ramipril. 8. Eliquis. 9. Citalopram. 10. Breo Ellipta. 11. Docusate sodium. 12. Ipratropium. 13. Albuterol. 14. Valacyclovir. 15. Lasix. PHYSICAL EXAMINATION: VITAL SIGNS: On presentation, blood pressure 134/81 with heart rate of 76, respiratory rate was 28, temperature 99, pain was 10/10 oxygen saturation 96. GENERAL APPEARANCE: The patient is lethargic, noncooperative with interview. HEENT: Eyes, normal conjunctivae. Moist oral mucosa. Anicteric. The patient has an NG tube. NECK: No JVD. RESPIRATORY: Bilateral air entry. No rales. No wheezes. Symmetric expansion. CARDIOVASCULAR: Normal rate, regular rhythm. No murmurs. No gallop. No edema. ABDOMEN: Distended, tender, with guarding, decreased bowel sounds. MUSCULOSKELETAL: Baseline range of motion and strength. No tenderness. SKIN: Warm, intact. No pallor. No rash. No redness. Peripheral pulses are present. Capillary refill seems to be intact. NEUROLOGIC: No evidence of any new focal weakness. PSYCHIATRIC: Unable to fully explore. CT abdomen was discussed with Dr. Sanchez from the ER. Reportedly, the patient has pneumatosis of the bowel. This was discussed with Dr. Dennis and the patient. Prognosis is extremely poor. The patient may need to go for surgery and in her condition most likely will not survive a surgery. LABORATORY DATA: Labs were reviewed, the patient has white count of 38.2, hemoglobin 17.5, MCV 109, platelet count 294. PT 14.8, INR 1.2, PTT 28.8. Chemistry: Sodium 137, potassium 5.9, chloride 105, carbon dioxide 20, anion gap of 18, BUN 41, creatinine 1.77, GFR 27, glucose 199, lactic acid 3.7, calcium 9.5, total bilirubin 1.2. LFTs were negative, troponin 0.029. Beta-natriuretic peptide 182 and serum total protein 5.5, albumin 3.4, globulin 2.1, albumin globulin ratio 1.62, lipase 11. ASSESSMENT AND PLAN: The patient will be placed in the hospital with following medical problems: 1. Pneumatosis of the bowel as reported in the CT scan, very poor prognosis. The patient may need surgery and that she might not survive. This had been discussed with power of claim attorney. Decision is to put the patient on comfort care, the patient is DNR/DNI. We will place the patient on medications for pain and put her on comfort. 2. Sepsis. The patient is tachycardic, tachypneic, white count 38.2. No further treatment. The patient is on comfort care. 3. Hyperkalemia of 5.9. 4. Acute kidney injury. Patient's creatinine is 1.7, before it was 0.7. 5. Hyperglycemia with a blood sugar of 199. 6. The patient had risk of complication given the need to downgrade her care status to DNR/DNI with comfort measures. Job ID: [id number]
[2018-11-27 05:03] LABS: Lactic Acid 3.2 mmol/L (0.5-2.2)
[2018-11-27] MEDS ORDERED: Scopolamine 1.5 mg/72 hour Patch TD SCH (06:00)
--- NOTE | 2018-11-27 07:01 | CT ---
ABDOMEN AND PELVIS CT WITH CONTRAST: INDICATION: Abdominal pain. FINDINGS: Reference is made to CT images from 09/22/2017 exam. There are bilateral linear parenchymal densities of the imaged lung bases which may relate to scarrin g or volume loss. Bleb formation is also seen. There is enlargement of the cardiac chambers. Moder ate abdominal ascites is present. There are distended loops of fluid-filled unopacified bowel. Hype remia of the bowel wall and suggestion of pneumatosis demonstrated. This is difficult to reliably d elineate given the absence of enteric contrast. There is also distention of the gastric lumen. No p ortal vein gas is seen. No disseminated free air. Streak artifact from the right hip hardware limit s evaluation of the low abdomen/pelvis. There is atrophy of each kidney with scattered hypodensities , too small to definitively characterize. No evidence of adrenal mass. No focal pancreatic lesion. There is a distended gallbladder with cholelithiasis. There has been an interval moderate compressio n deformity at T12 since the prior exam. IMPRESSION: 1. Abnormality of the bowel with fluid-filled distention, wall hyperemia, and suggestion of pneumato sis, although limited by technique. The diagnosis of exclusion is ischemic bowel. Alternatively, fi ndings could relate to sequelae from mechanical obstruction and venous congestion. Correlate with phy sical exam, lab values, and surgical consultation. 2. Diffuse ascites. 3. Additional details are described above. POS: SMITHA
[2018-11-27] MEDS: Morphine 2 MG/ML SYRINGE SLOW IVP PRN ×3 (07:38→18:35)
[2018-11-27] MEDS: Lorazepam 2 MG/ML VIAL SLOW IVP PRN ×2 (09:08→15:53)
--- NOTE | 2018-11-27 16:57 | PDOC.PN ---
- Subjective Encounter Start Date: 11/27/18 Encounter Start Time: 16:56 was seen today in follow-up of abdominal pain and pneumatosis. She is surrounded by family. she appears comfortable - Objective Resuscitation Status - Order Detail: 11/27/18 02:12 Resuscitation Status Routine Resuscitation Status: DNAR: NO Resuscitation Discussed with: with POA at bedside MAR Reviewed: Yes Vital Signs & Weight: Vital Signs (12 hours) Temp Pulse Resp BP Pulse Ox 11/27/18 12:00 97.7 F 75 16 132/79 98 11/27/18 08:39 97.5 F L 75 20 130/75 98 11/27/18 08:00 98 Weight Admit Weight 108 lb 7.479 oz Weight 108 lb 7.479 oz I&O: 11/26/18 11/27/18 11/28/18 06:59 06:59 06:59 Output Total 140 Balance -140 Result Diagrams: 11/27/18 00:01 11/27/18 00:01 Phys Exam - Physical Examination HEENT: PERRLA Respiratory: no wheezing, no rales, no rhonchi, clear to auscultation bilateral Cardiovascular: RRR, no significant murmur, no rub Gastrointestinal: soft, non-tender, no distention, positive bowel sounds Musculoskeletal: no edema, pulses present Dx/Plan (1) Pneumatosis coli Code(s): K63.89 - OTHER SPECIFIED DISEASES OF INTESTINE Status: Acute (2) HTN (hypertension) Code(s): I10 - ESSENTIAL (PRIMARY) HYPERTENSION Status: Chronic Qualifiers: Comment: At goal. Continue current meds. (3) Hypothyroidism Code(s): E03.9 - HYPOTHYROIDISM, UNSPECIFIED Status: Chronic Qualifiers: Hypothyroidism type: unspecified Qualified Code(s): E03.9 - Hypothyroidism , unspecified Comment: TSH WNL. Continue levothyroxine. (4) Pulmonary hypertension Code(s): I27.20 - PULMONARY HYPERTENSION, UNSPECIFIED Status: Chronic - Plan * Pneumatosis- discussed with the patient's daughter at bedside. Family has all agreed on comfort measures only * Plan is to discharge to inpatient Hospice care.
[2018-11-27 17:17] VITALS: BP 122/84; TEMP 97.8
--- NOTE | 2018-11-28 04:11 | DIS ---
DATE OF ADMISSION: 11/27/2018 DATE OF DISCHARGE: 11/27/2018 DISCHARGE DISPOSITION: To inpatient hospice. DISCHARGE DIAGNOSES: 1. Pneumatosis coli. 2. Sepsis. 3. Acute kidney injury. 4. Chronic atrial fibrillation. 5. Coronary artery disease. 6. Hypertension. 7. Dementia. CODE STATUS: DNAR. ALLERGIES: TO METOPROLOL AND SULFA. PROCEDURES DONE: During the admission; the patient had a CT scan of the abdomen and pelvis, which showed an abnormality of the bowel which was hyperemic with suggestions of pneumatosis. This could be due to ischemic bowel or from mechanical obstruction. There is also diffuse ascites. HOSPITAL COURSE: Ms. Coleman is an 82-year-old female, who was recently admitted to our facility in late October after she had an episode of acute on chronic respiratory failure due to chronic obstructive pulmonary disease exacerbation and exacerbation of chronic diastolic heart failure. She was diuresed and sent back to the assisted. She, however, developed nausea, vomiting, and abdominal pain. She was evaluated in the emergency room by CT scan and found to have pneumatosis coli related to either obstruction or ischemic bowel. Due to her advanced age and multiple other comorbidities, the family decided on comfort measures only and comfort care only. A hospice consult was obtained and she was discharged to inpatient hospice on 11/27/2018. Job ID: [id number]
== END 2018-11-27 19:16 | disposition hospice, inpatient (51) | DRG 394 ==
LOC: ERS 23:09 → T4-B 11-27 02:56
PROVIDERS: ADMIT Hospitalist; ATTEND Hospitalist
DX: K63.89 Other specified diseases of intestine (principal); N17.9 Acute kidney failure, unspecified; Z66 Do not resuscitate; J44.9 Chronic obstructive pulmonary disease, unspecified; F03.90 Unspecified dementia, unspecified severity, without behavioral disturbance, psychotic disturbance, mood disturbance, and anxiety; E03.9 Hypothyroidism, unspecified; E78.5 Hyperlipidemia, unspecified; E87.5 Hyperkalemia; R73.9 Hyperglycemia, unspecified; I10 Essential (primary) hypertension; I27.20 Pulmonary hypertension, unspecified; Z86.73 Personal history of transient ischemic attack (TIA), and cerebral infarction without residual deficits; Z95.1 Presence of aortocoronary bypass graft; Z88.2 Allergy status to sulfonamides; Z88.8 Allergy status to other drugs, medicaments and biological substances
CPT/HCPCS: 36415; 71045; 74177; 80053; 81003; 81015; 82274; 82550; 82553; 83605; 83690; 83880; 84484; 85025; 85610; 85730; 86850; 86900; 86901; 93005; A4353; J2060; J2270; J2405; Q9966